=== PATIENT | male | born 1940 | race Caucasian/White ===

== ENCOUNTER 2017-10-13 14:19 | Emergency (ER) | payer MEDICARE, OTHER ==
[2017-10-13 14:50] LABS: #Eosinphils 0.1 thou/uL (0.0-0.7); #Lymphocytes 0.7 thou/uL (1.20-3.40); #Monocytes 0.3 thou/uL (0.11-0.59); #Neutrophils 5.2 thou/uL (1.40-6.50); %Basophils 0.3 % (0.0-1.0); %Eosinophils 1.1 % (0.0-10.0); %Lymphocytes 10.6 % (21.0-51.0); %Monocytes 4.4 % (0.0-10.0); %Neutrophils 83.6 % (42.0-75.0); Mean Corpuscular HGB CONC 34.5 g/dL (32.0-36.0); Mean Corpuscular Hemoglobin 31.4 pg (27.0-31.0); Mean Platelet Volume 7.7 fL (7.4-10.4); Platelet Count 195 thou/uL (130-400); RBC Distribution Width 12.5 % (11.5-14.5); Red Blood Cell (RBC) Count 3.82 mill/uL (4.70-6.10); White Blood Cell (WBC) Count 6.2 thou/uL (4.8-10.8)
[2017-10-13 15:11] LABS: ALT (SGPT) 24 U/L (8-55); AST (SGOT) 30 U/L (5-34); Albumin 4.2 g/dL (3.4-4.8); Alkaline Phosphatase 36 U/L (40-150); Anion Gap 9 mmol/L (10-20); BUN (Urea Nitrogen) 24 mg/dL (8.4-25.7); Bilirubin, Total 0.6 mg/dL (0.2-1.2); Calc. Creatinine Clearance 0 mL/min (70-130); Calcium 9.6 mg/dL (7.8-10.44); Carbon Dioxide 25 mmol/L (23-31); Chloride 105 mmol/L (98-107); Estimated GFR-MDRD 67; Globulin 2.4 g/dL (2.4-3.5); Glucose 120 mg/dL (83-110); Lipase 89 U/L (8-78); Potassium 4.4 mmol/L (3.5-5.1); Protein, Total 6.6 g/dL (5.8-8.1); Sodium 135 mmol/L (136-145)
[2017-10-13 16:10] LABS: Bilirubin Negative (Negative); Blood, Urine Trace (Negative); Clarity CLEAR (Clear); Glucose, Urine (Dipstick) Negative (Negative); Leukocyte Negative (Negative); Nitrite Negative (Negative); Protein, Urine (Dipstick) Negative (Neg-Trace); Specific Gravity, Urine 1.019 (1.002-1.036); Urobilinogen 0.2 mg/dL (0.2-1.0); pH, Urine 5.5 (5.0-9.0)
[2017-10-13 16:12] LABS: Bacteria/HPF None Seen HPF (None Seen); Hyaline Casts/LPF 0-3 HYALINE CAST LPF (0-3 Hyaline); Pathc Cast-AUWi Flag 0.14 (0-2.49); RBC/HPF 0-3 HPF (0-3); Squamous Epithelial 0-3 HPF (0-3); WBC/HPF 0-3 HPF (0-3)
--- NOTE | 2017-10-13 18:52 | CT ---
CT ABDOMEN AND PELVIS WITHOUT CONTRAST WITH STONE PROTOCOL 10/13/17 HISTORY: Pain. Renal stones. Right lower quadrant pain. COMPARISON: CT stone protocol 06/21/11. FINDINGS: Mild atelectasis in the right lung base. No pericardial effusion. Moderate right sided hydroureteronephrosis. There is moderate ectasia of right ureter. There is a dis veronica calculus within the right ureter measuring 4 x 4 mm, 3 cm proximal to the ureterovesicular juncti on as well as a calculus measuring 5 x 6 mm in the distal right ureter at the ureterovesicular juncti on. There appears to be a mass within the urinary bladder near the right ureterovesicular junction no t fully evaluated on this examination due to streak artifact. This may be prostatic hypertrophy altho ugh is asymmetric to the right. Multiple bilateral renal calculi are present. Largest calculus in the right renal collecting system m easures up to 5 mm and on the left collecting system measures up to 9 mm with casting of the inferior calyx. Atherosclerotic plaque of the aortoiliac system. No dilated loops of large or small bowel. Th ere is cholelithiasis. Noncontrast evaluation of the liver and spleen are unremarkable as well as the pancreas. Moderate facet arthropathy lower lumbar spine as well as degenerative disc space height lo ss. IMPRESSION: 1. Moderate right sided hydroureteronephrosis with two separate distal ureteral calculi with siz es as above. 2. Possible mass in the right posterolateral urinary bladder wall versus hypertrophy of the pros cazares. Direct visualization is recommended. 3. Moderate calculus burden of both kidneys with greatest dimensions as above. 4. Small sliding hiatal hernia. 5. Mild cholelithiasis. 6. Numerous hypodensities of both kidneys incompletely evaluated on this exam. POS: STAN
== END 2017-10-13 19:05 | disposition home or self-care (01) ==
LOC: ERS 14:19
DX: N13.2 Hydronephrosis with renal and ureteral calculous obstruction (principal); N40.1 Benign prostatic hyperplasia with lower urinary tract symptoms; E78.5 Hyperlipidemia, unspecified; I10 Essential (primary) hypertension; Z79.82 Long term (current) use of aspirin; Z79.899 Other long term (current) drug therapy
CPT/HCPCS: 36415; 74176; 80053; 81003; 81015; 83690; 85025

== ENCOUNTER 2017-12-18 10:55 | Outpatient (CLI) | payer MEDICARE, OTHER ==
[2017-12-18 12:23] LABS: Hemoglobin 11.5 g/dL (14.0-18.0); Mean Corpuscular HGB CONC 34.2 g/dL (32.0-36.0); Mean Corpuscular Hemoglobin 30.7 pg (27.0-31.0); Mean Corpuscular Volume 89.8 fL (78.0-98.0); Mean Platelet Volume 7.3 fL (7.4-10.4); Platelet Count 250 thou/uL (130-400); Red Blood Cell (RBC) Count 3.75 mill/uL (4.70-6.10); White Blood Cell (WBC) Count 4.5 thou/uL (4.8-10.8)
[2017-12-18 12:29] LABS: Bilirubin Negative (Negative); Blood, Urine Negative (Negative); Clarity CLEAR (Clear); Glucose, Urine (Dipstick) Negative (Negative); Leukocyte Negative (Negative); Nitrite Negative (Negative); Protein, Urine (Dipstick) Negative (Neg-Trace); Specific Gravity, Urine 1.019 (1.002-1.036); Urobilinogen 0.2 mg/dL (0.2-1.0)
[2017-12-18 12:33] LABS: Bacteria/HPF None Seen HPF (None Seen); Hyaline Casts/LPF 0-3 HYALINE CAST LPF (0-3 Hyaline); INR-International Normal Ratio 1.1; Prothrombin Time 13.9 SEC (12.0-14.7); RBC/HPF 0-3 HPF (0-3); Squamous Epithelial None Seen HPF (0-3); WBC/HPF 0-3 HPF (0-3)
[2017-12-18 12:37] LABS: PTT 28.2 SEC (22.9-36.1)
[2017-12-18 12:51] LABS: Anion Gap 13 mmol/L (10-20); BUN (Urea Nitrogen) 26 mg/dL (8.4-25.7); Calc. Creatinine Clearance 0 mL/min (70-130); Calcium 9.1 mg/dL (7.8-10.44); Carbon Dioxide 23 mmol/L (23-31); Chloride 106 mmol/L (98-107); Estimated GFR-MDRD 60; Glucose 115 mg/dL (83-110); Potassium 4.3 mmol/L (3.5-5.1); Sodium 138 mmol/L (136-145)
== END 2017-12-18 10:56 | disposition home or self-care (01) ==
LOC: LABBT 10:55
PROVIDERS: ATTEND Urology
DX: Z01.818 Encounter for other preprocedural examination (principal); N20.0 Calculus of kidney
CPT/HCPCS: 80048; 81001; 85027; 85610; 85730; 87086; 93005; 93010

== ENCOUNTER 2017-12-24 06:05 | Day surgery (SDC) | payer MEDICARE, OTHER ==
[2017-12-18 11:14] VITALS: BMI 23.3
[2017-12-24] MEDS ORDERED: Levofloxacin 500 mg/D5W 100 ml Premix Bag ONE (06:27)
[2017-12-24] MEDS ORDERED: Fentanyl 100 MCG/2 ML VIAL ONE (06:35)
[2017-12-24] MEDS ORDERED: B & O ONE (07:25)
--- NOTE | 2017-12-24 11:34 | OP ---
DATE OF PROCEDURE: 12/24/2017 SERVICE: Urology SURGEON: Brain Bal M.D. PREOPERATIVE DIAGNOSIS: Renal stone. POSTOPERATIVE DIAGNOSIS: Bladder renal and ureteral stone. PROCEDURE PERFORMED: Cystolitholapaxy 1.2 cm, ureteroscopy, laser lithotripsy, basket extraction and placement of a 6 x 26 double-J stent all on the right. INDICATIONS FOR PROCEDURE: Mr. Brennan is a 77-year-old white male who presented to or with flank pain and nephrolithiasis. He was noted to have [address] with renal stones. He states he passed 1 stone, but it was unclear whether or not the other stone was passed. We elected to take him to the OR for ureteroscopy to look for the other stone and go ahead and clear out the right side of his kidney. He does have stones on the left which we have elected to treat at a later date. All the risks and benefits have been discussed and he has agreed to proceed forward. DESCRIPTION OF PROCEDURE: After identification of his armband and verification of consent, the patie ro was brought to the operating room and underwent general anesthesia with an LMA. He was then place d in dorsal lithotomy position and prepped and draped in usual sterile fashion. After appropriate ti meout, a lubricated 22 [place] rigid cystoscope was introduced per urethra into the bladder. The blad agusto was noted to be extremely hypertrophic, full cystoscopy was performed. There were no mucosal les ions or tumors within the bladder. There was a median lobe which was protruding intravesically which likely represented the mass which was seen on CT previously; however, there was approximately a 1-1. 2 cm bladder stone in the bladder. This is most likely a ureteral stone which never passed and has g rown in size within the bladder. A 200 micron laser fiber was used to fragment the stone into smalle r pieces and then a basket along with manual irrigation through the cystoscope was used to evacuate t he pieces. Once the stone from the bladder was cleared, attention was turned to the right ureteral o rifice which was cannulated with a 0.035 sensor wire to the level of the renal pelvis. The cystoscop e was then removed leaving the sensor wire in place as a safety wire. A semi rigid ureteroscope was then brought in along the sensor wire into the distal ureter where another ureteral stone was encount ered in the distal ureter. There were actually 2 stones at this point in close proximity to each oth er. A 200 micron laser fiber was then used to fragment both stones into small pieces and a 1.9 Frenc h 0 tip nitinol basket used to basket the pieces out. Upon completion and after it was ensured that the ureter was clear, an Amplatz Super Stiff wire was then placed through the ureteroscope under dire ct vision up into the renal pelvis. Once confirmed fluoroscopically, the ureteroscope was withdrawn and the sensor wire was left affixed to the drapes as a safety wire. An 11/13 x 46 cm ureteral acces s sheath was advanced over the Super Stiff wire to the level of the renal pelvis. The inner cannula and the Super Stiff wire were then removed leaving the outer sheath and the sensor wire in place as a safety wire. A flexible digital ureteroscope was then passed through the ureteral access sheath int o the kidney and a full pyeloscopy performed. There were several additional stones, some of which re quired laser lithotripsy and some of which could be basketed out individually. Upon completion, all stones were removed and there were no residual fragments whatsoever within the kidney. Satisfied raymundo t the right side is completely clear, pull back ureteroscopy was employed and no additional stones we re found within the ureter. The ureteroscope and sheath were then removed and the cystoscope was the n backloaded over the sensor wire back into the bladder. A 6 x 26 double-J stent was advanced over t he sensor wire up to the level of the renal pelvis. The wire was then removed and had a good curl in the renal pelvis and good curl in the bladder. The bladder was then emptied and the cystoscope ej hemanth. A 16-A B&O suppository placed in the patient's rectum. He was taken out of lithotomy, awakened and taken to PACU for recovery in stable condition. COMPLICATIONS: None. ESTIMATED BLOOD LOSS: Minimal. RETAINED TUBES AND DRAINS: A 6 x 26 double-J stent on the right. SPECIMENS: Stone for stone analysis. DISPOSITION: The patient will be discharged home and follow up with me in approximately 1 week for c ystoscopy and stent removal.
[2017-12-24] MEDS ORDERED: Lidocaine 1% PF 5 ML VIAL ONE (13:29)
[2017-12-24] MEDS ORDERED: PHENYLEPHRINE-NS 100 MCG/ML 10 ML SYRINGE ONE (13:29)
[2017-12-24] MEDS ORDERED: ePHEDrine/0.9% NaCl/PF SYRINGE 50 mg/10 ml ONE (13:29)
[2017-12-24] MEDS ORDERED: PROPOFOL 200 MG/20 ML VIAL ONE (13:29)
== END 2017-12-24 12:00 | disposition home or self-care (01) ==
LOC: SDC 06:05
PROVIDERS: ATTEND Urology
PROC: 0TCB8ZZ Extirpation of Matter from Bladder, Via Natural or Artificial Opening Endoscopic (ICD-10-PCS; principal; 2017-12-24)
PROC: 0T768DZ Dilation of Right Ureter with Intraluminal Device, Via Natural or Artificial Opening Endoscopic (ICD-10-PCS; 2017-12-24)
PROC: 0TC68ZZ Extirpation of Matter from Right Ureter, Via Natural or Artificial Opening Endoscopic (ICD-10-PCS; 2017-12-24)
PROC: 0TC38ZZ Extirpation of Matter from Right Kidney Pelvis, Via Natural or Artificial Opening Endoscopic (ICD-10-PCS; 2017-12-24)
DX: N20.2 Calculus of kidney with calculus of ureter (principal); N21.0 Calculus in bladder; N40.1 Benign prostatic hyperplasia with lower urinary tract symptoms; R35.1 Nocturia; N28.1 Cyst of kidney, acquired; N32.89 Other specified disorders of bladder; I10 Essential (primary) hypertension; E78.5 Hyperlipidemia, unspecified; I25.10 Atherosclerotic heart disease of native coronary artery without angina pectoris; Z95.1 Presence of aortocoronary bypass graft; Z79.82 Long term (current) use of aspirin; Z79.899 Other long term (current) drug therapy; Z87.442 Personal history of urinary calculi; Z98.890 Other specified postprocedural states
CPT/HCPCS: 52317; 52356; 76001; 82365; 88300; C1769; J1956; J3010

== ENCOUNTER 2017-12-25 00:53 | Emergency (ER) | payer MEDICARE, OTHER ==
[2017-12-25] MEDS ORDERED: Ondansetron HCl/PF 4 MG/2 ML Vial ONE (03:53)
[2017-12-25 04:05] LABS: #Lymphocytes 0.4 thou/uL (1.20-3.40); #Monocytes 0.5 thou/uL (0.11-0.59); #Neutrophils 8.2 thou/uL (1.40-6.50); %Eosinophils 0.3 % (0.0-10.0); %Neutrophils 90.7 % (42.0-75.0); Hemoglobin 11.6 g/dL (14.0-18.0); Mean Corpuscular HGB CONC 35.9 g/dL (32.0-36.0); Mean Corpuscular Hemoglobin 32.2 pg (27.0-31.0); Mean Corpuscular Volume 89.7 fL (78.0-98.0); Mean Platelet Volume 7.7 fL (7.4-10.4); Platelet Count 181 thou/uL (130-400); Red Blood Cell (RBC) Count 3.59 mill/uL (4.70-6.10); White Blood Cell (WBC) Count 9.1 thou/uL (4.8-10.8)
[2017-12-25 04:17] LABS: ALT (SGPT) 21 U/L (8-55); AST (SGOT) 30 U/L (5-34); Albumin 4.4 g/dL (3.4-4.8); Alkaline Phosphatase 35 U/L (40-150); Anion Gap 13 mmol/L (10-20); BUN (Urea Nitrogen) 29 mg/dL (8.4-25.7); Calc. Creatinine Clearance 0 mL/min (70-130); Calcium 9.6 mg/dL (7.8-10.44); Carbon Dioxide 23 mmol/L (23-31); Chloride 99 mmol/L (98-107); Estimated GFR-MDRD 46; Globulin 2.6 g/dL (2.4-3.5); Glucose 131 mg/dL (83-110); Sodium 131 mmol/L (136-145)
[2017-12-25 04:51] LABS: Bilirubin Negative (Negative); Blood, Urine Large (Negative); Glucose, Urine (Dipstick) 100 mg/dL (Negative); Leukocyte Moderate (Negative); Nitrite Positive (Negative); Protein, Urine (Dipstick) > or equal to 300 mg/dL (Neg-Trace); Specific Gravity, Urine 1.015 (1.005-1.030); pH, Urine 6.5 (5.0-9.0)
[2017-12-25 04:56] LABS: Clarity Turbid (Clear)
[2017-12-25 05:17] LABS: Bacteria/HPF None Seen HPF (None Seen); RBC/HPF GREATER THAN 50-TNTC HPF (0-3); Squamous Epithelial 0-3 HPF (0-3)
[2017-12-25] MEDS ORDERED: Sodium Chloride 0.9% 100 ML ONE (05:30)
[2017-12-25] MEDS ORDERED: cefTRIAXone\\ROCEPHIN 2 GM VIAL ONE (05:30)
--- NOTE | 2017-12-25 10:00 | ULT ---
ULTRASOUND RETROPERITONEUM COMPLETE: (RENAL) DATE: 12/25/17. TIME: 6:16 a.m. HISTORY: A 77-year-old male with pelvic pain. FINDINGS: Right kidney: 12.5 x 5.5 x 4.5 cm. Left kidney: 12 x 5.5 x 6 cm. The upper portion of a ureteral stent is visualized in a dilated right extrarenal pelvis. There are calculi at the lower pole of the left kidney, with the larger ones measuring greater than 10 mm. No dilation of the bilateral calyces. A small 1 x 1.5 cm left renal upper pole parenchymal cyst. Urinary bladder lumen contains a López catheter (in addition to the right ureteral stent), but the bl adder is not empty. It has a volume of 240 mL. Bladder white are diffusely mildly thickened. There is a soft tissue mass at the base of the urinary bladder which is probably an enlarged prostate glan d. This measures approximately 5.5 x 4.5 x 4.5 cm. This protrudes into the bladder lumen. IMPRESSION: 1. Mass at base of bladder, presumably representing a very enlarged prostate gland. 2. Despite the presence of a López catheter, the bladder is not empty. 3. Nephrolithiasis: left renal calculi. 4. Right ureteral stent. 5. No hydronephrosis. KVNG Tavera POS: STAN
== END 2017-12-25 07:08 | disposition home or self-care (01) ==
LOC: ERS 00:53
DX: N39.0 Urinary tract infection, site not specified (principal); E78.5 Hyperlipidemia, unspecified; I10 Essential (primary) hypertension
CPT/HCPCS: 51702; 76770; 80053; 81003; 81015; 85025; 87086; 96361; 96365; 96375; J0696; J2405; J7050

== ENCOUNTER 2017-12-25 13:00 | Emergency (ER) | payer MEDICARE, OTHER | END 2017-12-25 15:14 | disposition home or self-care (01) | LOC: ERS 13:00 | DX: T83.091A Other mechanical complication of indwelling urethral catheter, initial encounter (principal); R33.9 Retention of urine, unspecified; E78.5 Hyperlipidemia, unspecified; I10 Essential (primary) hypertension; Z79.82 Long term (current) use of aspirin; Z79.899 Other long term (current) drug therapy | CPT/HCPCS: 99283 ==

== ENCOUNTER 2018-02-10 10:34 | Outpatient (CLI) | payer MEDICARE, OTHER | END 2018-02-10 10:35 | disposition home or self-care (01) | LOC: BICULT 10:34 | PROVIDERS: ATTEND Urology | DX: N20.0 Calculus of kidney (principal); N28.1 Cyst of kidney, acquired; N28.89 Other specified disorders of kidney and ureter | CPT/HCPCS: 76770 ==

== ENCOUNTER 2018-08-24 14:52 | Outpatient (CLI) | payer MEDICARE, OTHER ==
[~2018-08-24 14:52] MED LIST: ISOVUE-370 76%-LOCM 1 ML ONE
[2018-08-24 15:33] LABS: Estimated GFR-MDRD - POC Greater than 90
--- NOTE | 2018-08-24 16:16 | CT ---
CT ABDOMEN WITH AND WITHOUT IV CONTRAST: Date: 08/24/18 HISTORY: Acquired complex renal cyst. COMPARISON: CT stone protocol dated 10/13/[address] abdomen and pelvis with and without IV contrast dated 5. FINDINGS: There are mild dependent changes in the right lung base. A small hiatal hernia is again seen. The mich er, spleen, pancreas, and adrenal glands are normal. Calcified gallstones are redemonstrated. No calculi seen in the right kidney or visualized portions of either ureter. There are calculi in the left kidney, the largest measuring about 1.0 cm. No hydroureteronephrosis is seen on either side. Th ere are hypodense lesions in the kidneys and hyperdense lesions in the left kidney are stable. No new renal masses are identified. No free air, free fluid, or lymphadenopathy seen in the abdomen. There are vascular calcifications wi thout evidence of aneurysmal dilatation of the abdominal aorta. There are degenerative changes in the spine. IMPRESSION: 1. Nonobstructing left renal calculi. 2. Stable renal lesions (hypo and hyperdense) since 2014. 3. Cholelithiasis. 4. Small hiatal hernia. POS: OFF
== END 2018-08-24 14:53 | disposition home or self-care (01) ==
LOC: BICCT 14:52
PROVIDERS: ATTEND Urology
DX: N28.1 Cyst of kidney, acquired (principal); N20.0 Calculus of kidney; K80.20 Calculus of gallbladder without cholecystitis without obstruction; K44.9 Diaphragmatic hernia without obstruction or gangrene; N28.9 Disorder of kidney and ureter, unspecified
CPT/HCPCS: 74170; 82565; Q9966

== ENCOUNTER 2018-12-28 09:15 | Outpatient (CLI) | payer MEDICARE, OTHER ==
[2018-12-28 11:18] LABS: Hemoglobin 13.1 g/dL (14.0-18.0); Mean Corpuscular HGB CONC 34.4 g/dL (32.0-36.0); Mean Corpuscular Hemoglobin 30.7 pg (27.0-31.0); Mean Corpuscular Volume 89.2 fL (78.0-98.0); Mean Platelet Volume 8.4 fL (7.4-10.4); Platelet Count 150 thou/uL (130-400); RBC Distribution Width 12.6 % (11.5-14.5); Red Blood Cell (RBC) Count 4.29 mill/uL (4.70-6.10); White Blood Cell (WBC) Count 5.5 thou/uL (4.8-10.8)
[2018-12-28 11:26] LABS: Bacteria/HPF None Seen HPF (None Seen); Bilirubin Negative (Negative); Blood, Urine Negative (Negative); Clarity Clear (Clear); Glucose, Urine (Dipstick) Normal (Negative); Leukocyte Negative Leu/uL (Negative); Nitrite Negative (Negative); Protein, Urine (Dipstick) Negative (Neg-Trace); RBC/HPF 0-3 HPF (0-3); Squamous Epithelial None Seen HPF (0-3); Urobilinogen Normal mg/dL (Less than 2); WBC/HPF 0-3 HPF (0-3)
[2018-12-28 11:29] LABS: PTT 28.8 SEC (22.9-36.1); Prothrombin Time 13.5 SEC (12.0-14.7)
[2018-12-28 11:50] LABS: Anion Gap 14 mmol/L (10-20); BUN (Urea Nitrogen) 22 mg/dL (8.4-25.7); Calc. Creatinine Clearance 0 mL/min (70-130); Calcium 9.8 mg/dL (7.8-10.44); Carbon Dioxide 24 mmol/L (23-31); Chloride 103 mmol/L (98-107); Estimated GFR-MDRD 88; Glucose 101 mg/dL (83-110); Potassium 4.7 mmol/L (3.5-5.1); Sodium 136 mmol/L (136-145)
--- NOTE | 2018-12-29 13:20 | EKG ---
Test Reason : Blood Pressure : / mmHG Vent. Rate : 061 BPM Atrial Rate : 061 BPM P-R Int : 162 ms QRS Dur : 082 ms QT Int : 388 ms P-R-T Axes : 026 057 061 degrees QTc Int : 390 ms Sinus rhythm with Premature atrial complexes Low voltage QRS RSR' or QR pattern in V1 suggests right ventricular conduction delay Borderline ECG When compared with ECG of 18-DEC-2017 12:01, Premature atrial complexes are now Present Confirmed by KAILEE BRADEN (2) on 12/29/2018 1:19:59 PM Referred By: LUKASZ Confirmed By:KAILEE BRADEN
== END 2018-12-28 09:16 | disposition home or self-care (01) ==
LOC: LABBT 09:15
PROVIDERS: ATTEND Urology
DX: Z01.818 Encounter for other preprocedural examination (principal); N20.0 Calculus of kidney; N40.1 Benign prostatic hyperplasia with lower urinary tract symptoms
CPT/HCPCS: 80048; 81001; 85027; 85610; 85730; 87086; 93005; 93010

== ENCOUNTER 2019-01-06 06:23 | Day surgery (SDC) | payer MEDICARE, OTHER ==
[2018-12-28 09:51] VITALS: BMI 24.0
[2019-01-06] MEDS ORDERED: Sodium Chloride 0.9% 100 ML ONE (07:40)
[2019-01-06] MEDS ORDERED: Levofloxacin 500 mg/D5W 100 ml Premix Bag ONE (07:40)
[2019-01-06] MEDS ORDERED: CEFAZOLIN 1 GM VIAL ONE (07:40)
[2019-01-06] MEDS ORDERED: Iothalamate Meglumine 60% 50 ML VIAL FS ONE (09:04)
[2019-01-06] MEDS ORDERED: Fentanyl 100 MCG/2 ML VIAL ONE (09:10)
[2019-01-06] MEDS ORDERED: Phenazopyridine HCl 97.5 MG TABLET ONE (12:19)
--- NOTE | 2019-01-06 14:33 | OP ---
DATE OF PROCEDURE: 01/06/2019 SERVICE: Urology. PREOPERATIVE DIAGNOSIS: Left renal stone. POSTOPERATIVE DIAGNOSIS: Left renal stone. PROCEDURE PERFORMED: Left ureteroscopy, laser lithotripsy, basket extraction of stones, and placement of a 6 x 26 double-J stent. INDICATION FOR PROCEDURE: Mr. Brennan is an 79-year-old white male, who had initially presented to [facility] with bilateral nephrolithiasis. We had already performed ureteroscopy on the right and cleared out all stones. He is now presenting to complete the left side with ureteroscopy. Risks and benefits have been discussed, and he has agreed to proceed forward. DESCRIPTION OF PROCEDURE: After identification of armband and verification of consent, the patient was brought back to the operating room, where he underwent general anesthesia with endotracheal intubation. He was then placed in dorsal lithotomy position and prepped and draped in usual sterile fashion. After appropriate time-out, a lubricated 22-[place]izen [place] rigid cystoscope was introduced per urethra into the bladder. The prostate was hypertrophic with a large lateral lobe. The left ureteral orifice was identified and cannulated with a 0.035 Sensor wire up to the level of the renal pelvis. The cystoscope was then removed and a dual-lumen catheter advanced over the Sensor wire up to the level of the UPJ. The second lumen was then cannulated with the Amplatz Super Stiff wire up to the level of the renal pelvis. The dual-lumen was then removed, and the Sensor wire secured on the drapes as a safety wire. An 11/13 x 46 cm ureteral access sheath was advanced up the Super Stiff wire up to the level of the proximal ureter. The inner cannula and the Super Stiff wire were then removed leaving the outer sheath and Sensor wire in place. A flexible digital disposable ureteroscope was then advanced up the ureteral access sheath up to the level of renal pelvis. A full pyeloscopy was performed, which demonstrated several smaller stones and one large lower pole stone measuring about a centimeter, which had previously been noted. The lower pole stone was manipulated with a Zero Tip 1.9-[place]izen [place] basket to bring it up to the upper pole for easier fragmentation. The 279 micron ball-tip laser fiber was then used to fragment the stone into small pieces, and then, the 1.9-[place] Zero Tip Nitinol basket used to fragment all the larger pieces and some of the additional stones that were seen within the kidney. Upon completion, all stones over 1 mm had been removed. The only remaining fragments were either a millimeter or less in size. There was a lot of dust and debris. Full pyeloscopy was performed without the basket for proper irrigation and there were no additional stone fragments noted. Pull-back ureteroscopy was employed, no additional stones were seen within the ureter. The ureteroscope and sheath were then removed, and the cystoscope was backloaded back into the bladder over the Sensor wire. A 6 x 26 double-J stent with string attached was advanced over the Sensor wire up to the level of renal pelvis. The wire was then removed leaving a good curl in the kidney, a good curl in the bladder. The bladder was then emptied and the cystoscope removed. The patient was then awakened, taken to PACU for recovery in stable condition. COMPLICATIONS: None. ESTIMATED BLOOD LOSS: Minimal. RETAINED TUBES AND DRAINS: A 6 x 26 double-J stent on the left with a string attached, which is secured by an OpSite on the patient's penis. SPECIMEN: Stone for stone analysis. DISPOSITION: The patient will be discharged discharge home and follow up with me next week for stent removal. The patient may also be allowed to remove his stent on either Thursday or Thursday morning. Job ID: [id number]
[2019-01-06] MEDS ORDERED: Furosemide 20 MG/2 ML VIAL ONE (20:54)
[2019-01-06] MEDS ORDERED: HYDROcodone/Acetaminophen 5/325 mg Tablet ONE (21:03)
== END 2019-01-06 21:40 | disposition home or self-care (01) ==
LOC: SDC 06:23
PROVIDERS: ATTEND Urology
PROC: 0TF48ZZ Fragmentation in Left Kidney Pelvis, Via Natural or Artificial Opening Endoscopic (ICD-10-PCS; principal; 2019-01-06)
PROC: 0T778DZ Dilation of Left Ureter with Intraluminal Device, Via Natural or Artificial Opening Endoscopic (ICD-10-PCS; 2019-01-06)
DX: N20.0 Calculus of kidney (principal); I10 Essential (primary) hypertension; E78.5 Hyperlipidemia, unspecified; I25.10 Atherosclerotic heart disease of native coronary artery without angina pectoris; M19.90 Unspecified osteoarthritis, unspecified site; Z79.82 Long term (current) use of aspirin; Z79.899 Other long term (current) drug therapy; Z95.1 Presence of aortocoronary bypass graft; Z96.653 Presence of artificial knee joint, bilateral
CPT/HCPCS: 52356; 76000; 82365; 88300; C1758; C1769; J0690; J1940; J1956; J3010; J3490

== ENCOUNTER 2019-01-11 04:12 | Emergency (ER) | payer MEDICARE, OTHER ==
[2019-01-11 04:45] LABS: #Eosinphils 0.2 thou/uL (0.0-0.7); #Lymphocytes 0.8 thou/uL (1.20-3.40); #Monocytes 0.4 thou/uL (0.11-0.59); #Neutrophils 4.2 thou/uL (1.40-6.50); %Basophils 0.1 % (0.0-1.0); %Eosinophils 3.7 % (0.0-10.0); %Monocytes 6.6 % (0.0-10.0); %Neutrophils 75.6 % (42.0-75.0); Mean Corpuscular Hemoglobin 31.3 pg (27.0-31.0); Mean Corpuscular Volume 89.4 fL (78.0-98.0); Mean Platelet Volume 8.1 fL (7.4-10.4); Platelet Count 144 thou/uL (130-400); RBC Distribution Width 12.6 % (11.5-14.5); Red Blood Cell (RBC) Count 3.84 mill/uL (4.70-6.10); White Blood Cell (WBC) Count 5.6 thou/uL (4.8-10.8)
[2019-01-11 05:04] LABS: Anion Gap 13 mmol/L (10-20); BUN (Urea Nitrogen) 24 mg/dL (8.4-25.7); Calc. Creatinine Clearance 0 mL/min (70-130); Calcium 9.6 mg/dL (7.8-10.44); Carbon Dioxide 22 mmol/L (23-31); Chloride 104 mmol/L (98-107); Estimated GFR-MDRD Greater than 90; Glucose 116 mg/dL (83-110); Potassium 4.1 mmol/L (3.5-5.1); Sodium 135 mmol/L (136-145)
[2019-01-11 05:09] LABS: Bilirubin Negative (Negative); Blood, Urine 3+ (Negative); Clarity Clear (Clear); Glucose, Urine (Dipstick) Normal (Negative); Leukocyte 250 Leu/uL (Negative); Nitrite Negative (Negative); Protein, Urine (Dipstick) 20 mg/dL (Neg-Trace); Squamous Epithelial None Seen HPF (0-3); Urobilinogen Normal mg/dL (Less than 2)
[2019-01-11 05:18] LABS: Bacteria/HPF 1+ HPF (None Seen)
== END 2019-01-11 05:32 | disposition home or self-care (01) ==
LOC: ERS 04:12
DX: R33.9 Retention of urine, unspecified (principal); E78.5 Hyperlipidemia, unspecified; E78.00 Pure hypercholesterolemia, unspecified; I10 Essential (primary) hypertension; Z79.899 Other long term (current) drug therapy
CPT/HCPCS: 36415; 51702; 51798; 80048; 81003; 81015; 85025; 87086

== ENCOUNTER 2019-02-23 10:42 | Outpatient (CLI) | payer MEDICARE, OTHER ==
--- NOTE | 2019-02-23 13:19 | ULT ---
BILATERAL RENAL ULTRASOUND: Date: 02/23/19 COMPARISON: None. HISTORY: Right ureteral stent removed. Prior lithotripsy of kidney stone. Nephrolithiasis. TECHNIQUE: Multiplanar Mendes scale and color Doppler images were obtained in a renal ultrasound. COMPARISON: CT abdomen/pelvis dated 08/24/18. FINDINGS: The kidneys demonstrate normal cortical echogenicity. There is an echogenic regio in the left kidney measuring 8 mm in size, which may represent a nonobstructing kidney stone. There is an area of cortic al hyperechogenicity measuring 1.6 cm in size in the left kidney which is nonspecific and has no CT c orrelate. Anechoic cysts are seen in the left kidney measuring up to 1.3 cm in size. There is no evidence of hydronephrosis on either side. The kidneys measures 10.6 and 12.6 cm in lengt h on the right and left, respectively. Limited visualization of the urinary bladder is unremarkable. IMPRESSION: 1. No evidence of hydronephrosis. 2. Left renal cysts. 3. Possible nonobstructing 8 mm left renal calcification. 4. Nonspecific hyperechoic region in the cortex of the left kidney. This does not demonstrate a CT c orrelate. POS: TPC
== END 2019-02-23 10:43 | disposition home or self-care (01) ==
LOC: BICULT 10:42
PROVIDERS: ATTEND Urology
DX: N20.0 Calculus of kidney (principal); N28.1 Cyst of kidney, acquired
CPT/HCPCS: 76770

== ENCOUNTER 2020-03-10 20:18 | Inpatient (IN) | payer MEDICARE, OTHER ==
[2020-03-10 20:52] LABS: #Basophils 0.1 thou/uL (0.0-0.2); #Eosinphils 0.2 thou/uL (0.0-0.7); #Monocytes 0.5 thou/uL (0.11-0.59); #Neutrophils 3.8 thou/uL (1.40-6.50); %Basophils 0.9 % (0.0-1.0); %Eosinophils 3.3 % (0.0-10.0); %Lymphocytes 17.7 % (21.0-51.0); %Monocytes 8.5 % (0.0-10.0); %Neutrophils 69.6 % (42.0-75.0); Hemoglobin 13.1 g/dL (14.0-18.0); Mean Corpuscular HGB CONC 35.2 g/dL (32.0-36.0); Mean Corpuscular Volume 90.9 fL (78.0-98.0); Mean Platelet Volume 8.4 fL (7.4-10.4); Platelet Count 142 thou/uL (130-400); RBC Distribution Width 12.7 % (11.5-14.5); Red Blood Cell (RBC) Count 4.08 mill/uL (4.70-6.10); White Blood Cell (WBC) Count 5.5 thou/uL (4.8-10.8)
--- NOTE | 2020-03-10 20:55 | RAD ---
XR Chest 1 View Portable History: Chest pain Comparison: Radiograph 2007 Findings: Mild rightward patient rotation. Lungs are without confluent airspace consolidation, pneumo thorax or effusion. Advanced degenerative disease of the left glenohumeral joint. Prominent gastric gas bubble under the left hemidiaphragm. Impression: No acute intrathoracic abnormality.
[2020-03-10 20:59] LABS: INR-International Normal Ratio 1.1; Prothrombin Time 14.3 sec (12.0-14.7)
[2020-03-10 21:21] LABS: ALT (SGPT) 26 U/L (8-55); AST (SGOT) 22 U/L (5-34); Albumin 4.2 g/dL (3.4-4.8); Alkaline Phosphatase 60 U/L (40-110); Anion Gap 15 mmol/L (10-20); BUN (Urea Nitrogen) 42 mg/dL (8.4-25.7); Bilirubin, Total 0.5 mg/dL (0.2-1.2); CK (CPK) 144 U/L (30-200); Calc. Creatinine Clearance 0 mL/min (70-130); Calcium 9.2 mg/dL (7.8-10.44); Carbon Dioxide 24 mmol/L (23-31); Chloride 106 mmol/L (98-107); Estimated GFR-MDRD 54; Globulin 2.1 g/dL (2.4-3.5); Glucose 116 mg/dL (83-110); Potassium 4.5 mmol/L (3.5-5.1); Protein, Total 6.3 g/dL (5.8-8.1); Sodium 140 mmol/L (136-145)
[2020-03-10 21:34] LABS: CKMB 3.3 ng/mL (0-6.6)
[2020-03-10] MEDS ORDERED: Aspirin Chewable 81 MG TAB ONE (22:24)
[2020-03-10] MEDS ORDERED: Diltiazem 125 MG/25 ML ONE (22:24)
[2020-03-10] MEDS ORDERED: Diltiazem 125 MG in Sodium Chloride 0.9% 100 ML IVPB SCH (23:45)
[2020-03-10] MEDS ORDERED: Acetaminophen 325 MG TAB PO PRN (23:51)
[2020-03-10] MEDS ORDERED: HYDROcodone/Acetaminophen 7.5/325 mg Tablet PO PRN (23:51)
--- NOTE | 2020-03-10 23:59 | PDOC.HHP ---
Hospitalist HPI - History of Present Illness syncope History of Present Illness: Case of an 80y/o male with pmhx of htn, hypercholesterolemia, cad and bph who present to hospital after a syncope episode. patient refers he was on his usual state of health until today when while at a chair he had an episode of LOC. patient states he didnt have any prodromal symptoms and was not trying to get up when the episode happen. he states he was fine and then woke up on the floor, as per daughter just after a few seconds. after waking up patient was pale diaphoretic and with palpitations but denies any chest pain or sob, and was oriented as soon as he woke up. he states this has not happened before and not no focal sensory or motor deficits Hospitalist ROS - Review of Systems All other systems reviewed; all pertinent +/- noted in HPI/Subj Hospitalist History - Past Surgical History Past Surgical History: reports: CABG - Family History Family History: reports: cardiac disorder - Social History Smoking Status: Never smoker Alcohol: reports: None Drugs: reports: none - Exam General Appearance: NAD, awake alert Eye: PERRL, anicteric sclera ENT: normocephalic atraumatic, no oropharyngeal lesions Neck: supple, symmetric, no JVD Heart: irregular Heart - other findings: tachycardic Respiratory: CTAB, no wheezes, no rales Gastrointestinal: soft, non-tender, non-distended Extremities: no cyanosis, no clubbing, no edema Skin: normal turgor, no lesions, no rashes Neurological: cranial nerve grossly intact, normal sensation to touch Musculoskeletal: normal tone, normal strength, no muscle wasting Psychiatric: normal affect, normal behavior, A&O x 3 Hospitalist Results - Labs Result Diagrams: 03/10/20 20:45 03/10/20 20:45 Lab results: WBC 5.5 thou/uL (4.8-10.8) 03/10/20 20:45 Hgb 13.1 g/dL (14.0-18.0) L 03/10/20 20:45 Hct 37.1 % (42.0-52.0) L 03/10/20 20:45 MCV 90.9 fL (78.0-98.0) 03/10/20 20:45 Plt Count 142 thou/uL (130-400) 03/10/20 20:45 Neutrophils % 69.6 % (42.0-75.0) 03/10/20 20:45 Sodium 140 mmol/L (136-145) 03/10/20 20:45 Potassium 4.5 mmol/L (3.5-5.1) 03/10/20 20:45 Chloride 106 mmol/L (98-107) 03/10/20 20:45 Carbon Dioxide 24 mmol/L (23-31) 03/10/20 20:45 BUN 42 mg/dL (8.4-25.7) H 03/10/20 20:45 Creatinine 1.28 mg/dL (0.7-1.3) 03/10/20 20:45 Glucose 116 mg/dL (83-110) H 03/10/20 20:45 Calcium 9.2 mg/dL (7.8-10.44) 03/10/20 20:45 Total Bilirubin 0.5 mg/dL (0.2-1.2) 03/10/20 20:45 AST 22 U/L (5-34) 03/10/20 20:45 ALT 26 U/L (8-55) 03/10/20 20:45 Alkaline Phosphatase 60 U/L (40-110) 03/10/20 20:45 Creatine Kinase 144 U/L (30-200) 03/10/20 20:45 CK-MB (CK-2) 3.3 ng/mL (0-6.6) 03/10/20 20:44 Troponin I 0.057 ng/mL (< 0.028) H 03/10/20 20:44 Serum Total Protein 6.3 g/dL (5.8-8.1) 03/10/20 20:45 Albumin 4.2 g/dL (3.4-4.8) 03/10/20 20:45 - Radiology Interpretation Chest x-ray Additional Comment: XR Chest 1 View Portable History: Chest pain Comparison: Radiograph 2006 Findings: Mild rightward patient rotation. Lungs are without confluent airspace consolidation, pneumo thorax or effusion. Advanced degenerative disease of the left glenohumeral joint. Prominent gastric gas bubble under the left hemidiaphragm. Impression: No acute intrathoracic abnormality. Hospitalist H&P A/P - Problem (1) Atrial fibrillation with RVR Code(s): I48.91 - UNSPECIFIED ATRIAL FIBRILLATION Status: Acute (2) CAD (coronary artery disease) Code(s): I25.10 - ATHSCL HEART DISEASE OF [place] CORONARY ARTERY W/O ANG PCTRS Status: Chronic (3) Dyslipidemia Code(s): E78.5 - HYPERLIPIDEMIA, UNSPECIFIED Status: Chronic (4) Hypertension Code(s): I10 - ESSENTIAL (PRIMARY) HYPERTENSION Status: Chronic - Plan Plan: 80y/o male with the stated pmxh who presents with new onset of afib in rvr atrial fibrillation in rvr - diltiazem drip - mild elevation in troponin, likely deman ischemia - cardiology consulted - full AC with lovenox -2d echo - check tsh, mg htn - continue acei hypercholestorelmia - continue statin + vascepa bph - continue flomax cad - continue acei, asa and statin
[2020-03-11 01:07] LABS: Troponin I 0.044 ng/mL (< 0.028)
[2020-03-11 01:12] VITALS: BMI 23.7
[2020-03-11] MEDS ORDERED: Sodium Chloride 0.9% 500 ML IV SCH (02:15)
[2020-03-11 04:11] LABS: #Eosinphils 0.1 thou/uL (0.0-0.7); #Lymphocytes 0.9 thou/uL (1.20-3.40); #Monocytes 0.4 thou/uL (0.11-0.59); #Neutrophils 4.4 thou/uL (1.40-6.50); %Basophils 0.2 % (0.0-1.0); %Lymphocytes 15.7 % (21.0-51.0); %Neutrophils 75.1 % (42.0-75.0); Hemoglobin 11.3 g/dL (14.0-18.0); Mean Corpuscular HGB CONC 34.6 g/dL (32.0-36.0); Mean Corpuscular Hemoglobin 31.4 pg (27.0-31.0); Mean Corpuscular Volume 90.6 fL (78.0-98.0); Mean Platelet Volume 8.7 fL (7.4-10.4); Platelet Count 137 thou/uL (130-400); RBC Distribution Width 12.7 % (11.5-14.5); Red Blood Cell (RBC) Count 3.59 mill/uL (4.70-6.10); White Blood Cell (WBC) Count 5.8 thou/uL (4.8-10.8)
[2020-03-11 04:29] LABS: ALT (SGPT) 21 U/L (8-55); AST (SGOT) 16 U/L (5-34); Albumin 3.4 g/dL (3.4-4.8); Alkaline Phosphatase 51 U/L (40-110); Anion Gap 13 mmol/L (10-20); BUN (Urea Nitrogen) 41 mg/dL (8.4-25.7); Bilirubin, Total 0.4 mg/dL (0.2-1.2); Calc. Creatinine Clearance 50 mL/min (70-130); Calcium 8.6 mg/dL (7.8-10.44); Carbon Dioxide 21 mmol/L (23-31); Chloride 109 mmol/L (98-107); Estimated GFR-MDRD 68; Globulin 2.1 g/dL (2.4-3.5); Glucose 163 mg/dL (83-110); Magnesium 2.1 mg/dL (1.6-2.6); Potassium 4.2 mmol/L (3.5-5.1); Protein, Total 5.5 g/dL (5.8-8.1); Sodium 139 mmol/L (136-145)
[2020-03-11 04:33] LABS: Troponin I 0.067 ng/mL (< 0.028)
[2020-03-11] MEDS ORDERED: Metoprolol Tartrate 5 MG/5 ML VIAL ONE (08:50)
[2020-03-11] MEDS ORDERED: Lisinopril 10 MG TAB PO SCH (09:00)
[2020-03-11] MEDS: Aspirin Chewable 81 MG TAB PO SCH (09:02)
[2020-03-11] MEDS: Enoxaparin Sodium 60 MG/0.6 ML SYRINGE SC SCH ×2 (09:03→21:33)
[2020-03-11] MEDS: Tamsulosin HCl 0.4 MG CAP PO SCH (09:03)
[2020-03-11] MEDS ORDERED: Fluticasone Propionate Nasal Spray 16 gm Bottle NASAL SCH (10:15)
[2020-03-11] MEDS ORDERED: Loratadine 10 MG TAB PO SCH (10:15)
[2020-03-11] MEDS: Icosapent Ethyl 1 GM CAPSULE PO SCH ×2 (11:17→21:32)
--- NOTE | 2020-03-11 14:23 | PDOC.HOSPP ---
- Subjective Subjective: Patient was seen examined at bedside. He has been converted into normal sinus rhythm this morning. His troponin is elevated slightly. However he does not have any chest pain. Patient's followed by Dr. Sims, he reported that he had no recent stress test - Objective Vital Signs & Weight: Vital Signs (12 hours) Temp Pulse Resp BP BP Pulse Ox 03/11/20 11:09 97.6 F 70 16 136/64 98 03/11/20 07:09 97.3 F L 80 18 120/59 L 97 03/11/20 06:39 64 18 95/54 L Weight Weight 142 lb 8 oz I&O: 03/10/20 03/11/20 03/12/20 06:59 06:59 06:59 Intake Total 50 Output Total 250 Balance -200 Result Diagrams: 03/11/20 03:39 03/11/20 03:39 Hospitalist ROS - Medication Medications: Active Medications Generic Name Dose Route Start Last Admin Trade Name Freq PRN Reason Stop Dose Admin Aspirin 162 mg 03/11/20 09:00 03/11/20 09:02 Aspirin Chewable 81 Mg Tab PO 162 mg QAM GURPREET Administration Enoxaparin Sodium 60 mg 03/11/20 09:00 03/11/20 09:03 Enoxaparin Sodium 60 Mg/0.6 Ml Syringe SC 60 mg 09,2100 GURPREET Administration Lisinopril 10 mg 03/11/20 09:00 03/11/20 09:03 Lisinopril 10 Mg Tab PO 10 mg DAILY GURPREET Administration Miscellaneous Medication 2 gm 03/11/20 09:00 03/11/20 11:17 Icosapent Ethyl 1 Gm Capsule PO 2 gm BID GURPREET Administration Tamsulosin HCl 0.4 mg 03/11/20 09:00 03/11/20 09:03 Tamsulosin Hcl 0.4 Mg Cap PO 0.4 mg QAM GURPREET Administration - Exam General Appearance: NAD Eye: PERRL ENT: normocephalic atraumatic Neck: supple Heart: RRR Respiratory: CTAB Gastrointestinal: soft Extremities: no cyanosis Skin: normal turgor Neurological: cranial nerve grossly intact Musculoskeletal: normal tone Psychiatric: normal affect, normal behavior, A&O x 3 Hosp A/P - Plan The patient is a pleasant 80 years old gentleman who has significant past medical histories of CAD with bypass, hypertension, dyslipidemia, who presented to the ED with syncopal episode. He was found to have new onset of atrial fib with RVR. Patient was started on Cardizem drip, now converted back to normal sinus rhythm. New onset of atrial fib with RVR - patient spontaneously converted on Cardizem drip --start Coreg for rate control --Cont therapeutic Lovenox for now, likely home on Eliquis given elevated [id number] score --Follow Echo. TSH low, check FT4+3 --Trop slightly elevated, no chest pain Elevated troponin --d/t above. No CP. No recent stress test --will consult his [employer] in AM for further recommendation CAD --with hx of bypass --resume home meds. Add Coreg for rate control Hypertension --BP stable. Add Coreg for above prob Dyslipidemia --cont statin Nasal congestion --start Flonase/Antihistamine BPH --cont Flomax DVT ppx: Patient is on Lovenox GI ppx: not indicated Code Status: Full Anticipated Dispo: Home when medically stable
[2020-03-11 16:15] LABS: SARS-CoV-2 MS2 Positive; SARS-CoV-2 N Gene Negative; SARS-CoV-2 S Gene Negative; SARS-CoV-2 by NAA Not Detected (NotDetected); SARS-CoV-2 orf1ab Negative
[2020-03-11] MEDS: Carvedilol 3.125 MG TAB PO SCH (16:26)
[2020-03-11] MEDS ORDERED: Nitroglycerin 0.4 MG TAB (25 Tab Bottle) ONE (20:45)
[2020-03-11] MEDS: Atorvastatin Calcium 40 MG TAB PO SCH (21:31)
--- NOTE | 2020-03-12 00:54 | CON ---
DATE OF CONSULTATION: 03/11/2020 INDICATION FOR CONSULTATION: An 80-year-old gentleman with syncopal episode. HISTORY OF PRESENT ILLNESS: This is a very pleasant 80-year-old gentleman, who has a history of coronary artery disease, who underwent bypass surgery approximately 15 years ago. He has been followed by Dr. Sims. He has not had any significant problems with arrhythmias in the past. He was sitting outside talking to family yesterday when he had a sudden onset of syncope. He was out for a few seconds according to the family, then he came back. He was brought to the emergency room and had what appeared to be atrial fibrillation with rapid ventricular response. He thought he was originally somewhat dehydrated and he did have a slight increase in the BUN-creatinine ratio, but otherwise did not have any significant abnormalities. He denied any chest pain or significant shortness of breath. He was started on IV diltiazem and converted to sinus rhythm and has been in sinus rhythm since that time. He has been relatively active. He has not had any significant other problems. He did have 1 episode of syncope many years ago, but it was most likely due to being dehydrated and overheated, but this was several years ago, and he has not had any problems since that time. PAST MEDICAL HISTORY: Significant for coronary artery bypass grafting with coronary artery disease. He has had bilateral knee replacements. SOCIAL HISTORY: He still lives at home. He has no alcohol or tobacco abuse. FAMILY HISTORY: Noncontributory. REVIEW OF SYSTEMS: A 12-point review of systems for this 80-year-old gentleman is relatively unremarkable except what was noted in the history of present illness. PHYSICAL EXAMINATION: GENERAL: A well-developed, well-nourished gentleman, who is in no acute distress. He is alert. He is oriented. VITAL SIGNS: Actually stable at this time. Blood pressure is 136/64. He is afebrile. Heart rate is 70 and shows a regular rhythm. Respiratory rate 16, O2 saturation 98%. HEENT: Shows head to be normocephalic and atraumatic. Carotid pulses are present. I did not hear any significant bruits. There is a slight radiation from the aortic area, but does not appear to be a carotid bruit. CHEST: Clear to auscultation without rales, rhonchi, or wheezing. CARDIOVASCULAR: Reveals a regular rate and rhythm. There is a systolic murmur over the aortic area, which is actually heard over the entire precordium. A very soft systolic murmur at the apex. ABDOMEN: Soft and nontender. Positive bowel sounds are present. There is no organomegaly or masses noted. Femoral pulses are present. EXTREMITIES: No clubbing, cyanosis. He had mild ankle edema. He has well-healed surgical incisions noted over the lower extremity after saphenous vein graft retrieval and also the left radial artery was taken for a bypass surgery in the past and the incisions are all well healed. The pedal pulses are somewhat difficult to palpate, but popliteal pulses are present. The one on the right is greater than one on the left. He has had bilateral knee replacements and these incisions are also well healed. NEUROLOGIC: There are no gross focal motor deficits noted. LABORATORY DATA: Shows a WBC of 5.8, hemoglobin was 11.3, hematocrit was 32.5, and platelet count was 137,000. His sodium was 139, potassium 4.2, chloride 109, bicarb was 21, BUN was 41 with a creatinine of 1.04. His troponin I was slightly elevated at 0.04 and then 0.067. BNP was 237. He is negative for COVID. IMPRESSION: 1. Chuck syncopal episode in gentleman who has had no significant previous history. He did have an episode of atrial fibrillation. He may have had atrial fibrillation and a pause which caused him to have the syncopal episode. I would either advise him to undergo monitoring for a 30-day event monitor, or in his case he certainly could be implanted with a LINQ, an implantable loop recorder to watch for further episodes of bradycardia or syncope or any arrhythmias. In the meantime, it would be advisable to place him on oral anticoagulation in case he has further episodes of atrial fibrillation. 2. History of coronary artery disease. He has had no ST-segment elevation that would indicate ischemia. He has not had a recent stress test. This may be in order to ensure he does not have any evidence of any ischemia that may have provoked some type of arrhythmias such as ventricular tachycardia that was undiagnosed. 3. Mild aortic valve stenosis. This would not appear to be enough to cause a chuck syncopal episode. He also has well-preserved left ventricular systolic function. At this time, I would agree with the present management with [facility] [place] well as the Lovenox. 4. He also has a history of hypertension which is under good control with the present management. We will continue his lisinopril. 5. He has benign prostatic hypertrophy. We will continue on the Flomax. Further care of the patient will be by Dr. Sims when he visits with the patient tomorrow, but we will hold his Lovenox after midnight tonight. We will hold the morning dose in case he needs to undergo other procedures. We will also keep the patient n.p.o. for possible stress test tomorrow. We will schedule him for stress testing tomorrow morning. Job ID: [id number]
[2020-03-12 04:58] LABS: Anion Gap 12 mmol/L (10-20); BUN (Urea Nitrogen) 28 mg/dL (8.4-25.7); Calc. Creatinine Clearance 63 mL/min (70-130); Calcium 8.6 mg/dL (7.8-10.44); Carbon Dioxide 23 mmol/L (23-31); Chloride 110 mmol/L (98-107); Estimated GFR-MDRD 89; Glucose 104 mg/dL (83-110); Magnesium 1.8 mg/dL (1.6-2.6); Potassium 4.4 mmol/L (3.5-5.1); Sodium 141 mmol/L (136-145)
[2020-03-12] MEDS ORDERED: Lisinopril 10 MG TAB PO SCH (07:34)
--- NOTE | 2020-03-12 12:07 | NM ---
EXAM: CARDIAC SPECT HISTORY: Coronary artery disease, status post CABG, atrial fibrillation, hypertension, dyslipidemia TECHNIQUE: A myocardial perfusion scan was performed using the single isotope 1 day protocol with felecia hnetium 99m sestamibi. [10 mCi] was injected intravenously for the rest exam followed by 30 mCi for the stress study. Exercise stress was monitored and interpreted by the nurse practitionerIsabela FINDINGS: Homogeneous tracer distribution is seen in the myocardial segments on stress and rest image s without fixed or reversible defects. Gated SPECT LVEF: 64% Wall motion exam: Normal IMPRESSION: Normal myocardial perfusion scan
[2020-03-12] MEDS: Enoxaparin Sodium 60 MG/0.6 ML SYRINGE SC SCH ×2 (12:43→21:12)
[2020-03-12] MEDS: Aspirin Chewable 81 MG TAB PO SCH (12:44)
[2020-03-12] MEDS: Carvedilol 3.125 MG TAB PO SCH ×2 (12:44→17:46)
[2020-03-12] MEDS: Tamsulosin HCl 0.4 MG CAP PO SCH (12:44)
[2020-03-12] MEDS: Loratadine 10 MG TAB PO SCH (12:44)
[2020-03-12] MEDS: Icosapent Ethyl 1 GM CAPSULE PO SCH ×2 (12:45→21:13)
[2020-03-12] MEDS: Lisinopril 5 MG TAB PO SCH (12:45)
--- NOTE | 2020-03-12 12:45 | PDOC.HOSPP ---
- Subjective Subjective: denies of chest pain. pt had episode of SVT while down for stress test. - Objective Vital Signs & Weight: Vital Signs (12 hours) Temp Pulse Resp BP Pulse Ox 03/12/20 12:22 97.9 F 69 17 122/65 99 03/12/20 07:15 98.1 F 74 16 130/82 98 03/12/20 04:00 98.7 F 72 16 113/61 95 Weight Weight 142 lb 8 oz I&O: 03/11/20 03/12/20 03/13/20 06:59 06:59 06:59 Intake Total 50 1450 Output Total 250 Balance -200 1450 Result Diagrams: 03/11/20 03:39 03/12/20 03:59 Radiology Reviewed by me: Yes EKG Reviewed by me: Yes Hospitalist ROS - Medication Medications: Active Medications Generic Name Dose Route Start Last Admin Trade Name Freq PRN Reason Stop Dose Admin Aspirin 162 mg 03/11/20 09:00 03/11/20 09:02 Aspirin Chewable 81 Mg Tab PO 162 mg QAM GURPREET Administration Atorvastatin Calcium 80 mg 03/11/20 21:00 03/11/20 21:31 Atorvastatin Calcium 40 Mg Tab PO 80 mg HS GURPREET Administration Carvedilol 3.125 mg 03/11/20 17:00 03/11/20 16:26 Carvedilol 3.125 Mg Tab PO 3.125 mg BID-WM GURPREET Administration Enoxaparin Sodium 60 mg 03/11/20 09:00 03/11/20 21:33 Enoxaparin Sodium 60 Mg/0.6 Ml Syringe SC 60 mg 0900,2100 GURPREET Administration Miscellaneous Medication 2 gm 03/11/20 09:00 03/11/20 21:32 Icosapent Ethyl 1 Gm Capsule PO 2 gm BID GURPREET Administration Tamsulosin HCl 0.4 mg 03/11/20 09:00 03/11/20 09:03 Tamsulosin Hcl 0.4 Mg Cap PO 0.4 mg QAM GURPREET Administration - Exam General Appearance: NAD Eye: PERRL ENT: normocephalic atraumatic Neck: supple Heart: RRR Respiratory: CTAB Gastrointestinal: soft Extremities: no cyanosis Skin: normal turgor Neurological: cranial nerve grossly intact Musculoskeletal: normal tone Hosp A/P - Plan The patient is a pleasant 80 years old gentleman who has significant past medical histories of CAD with bypass, hypertension, dyslipidemia, who presented to the ED with syncopal episode. He was found to have new onset of atrial fib with RVR. Patient was started on Cardizem drip, now converted back to normal sinus rhythm. New onset of atrial fib with RVR - with episode of SVT --cont Coreg for rate control --cont therapeutic Lovenox, transition to Eliquis when workup is complete --NM stress test pending. D/w [place] pt will need to stay d/t arrhythmias Elevated troponin --d/t above. No CP. CAD --with hx of bypass --resume home meds. Add Coreg for rate control Hypertension --BP stable. Add Coreg for above prob Dyslipidemia --cont statin Nasal congestion --start Flonase/Antihistamine BPH --cont Flomax DVT ppx: Patient is on Lovenox GI ppx: not indicated Code Status: Full Anticipated Dispo: Home when medically stable
[2020-03-12] MEDS: Fluticasone Propionate Nasal Spray 16 gm Bottle NASAL SCH (12:46)
--- NOTE | 2020-03-12 17:47 | CON ---
DATE OF CONSULTATION: 03/12/2020 HISTORY OF PRESENT ILLNESS: I am seeing Mr. 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 His problems are; 1. Presentation with syncope. 2. Initial rhythm is an atrial flutter, possibly typical at a rate of 110 beats per minute on EKG on 03/10/2020, subsequent resolution to sinus rhythm. 3. Occasional PVCs: a. Development of a nonsustained wide-complex arrhythmia run, changing into a narrow complex SVT of the same cycle length during exercise stress test. 4. Coronary artery disease: a. History of coronary artery bypass grafting surgery in 2004. b. Preserved LVEF on 2D echocardiogram on 03/11/2020 at 65% to 70%, moderate enlargement of the right atrium and left atrium as well, mild to moderate MR, mild to moderate TR, mild seen. 5. History of hypertension and hyperlipidemia. ALLERGIES: NONE NOTED. MEDICATIONS: At home included; 1. Lisinopril. 2. Lipitor. 3. Aspirin. 4. Vascepa. 5. Tamsulosin. SUBJECTIVE: Mr. Brennan was presenting on the after an episode of syncopal spell, which occurred while he was sitting down, slumped over, was passed out for a couple of seconds and then came back. His heart rhythm was noted to be irregular by EMS and was in atrial flutter on the first EKG, rapid ventricular rate response was noted, and he received transient IV diltiazem, there he converted back to sinus rhythm spontaneously and maintained sinus rhythm. On the other hand today, underwent a stress test, during which he developed another episode of tachycardia, at this point, nonsustained wide-complex rhythm organizing into a narrow complex SVT as noted above. This also spontaneously terminated after some IV Lopressor was given prior to that. He did not pass out this time. He denies angina-like discomfort. He has no PND, orthopnea, or lower extremity edema. No fever, chills, or cough. No neurological deficits. REVIEW OF SYSTEMS: Rest of 12-point system otherwise unremarkable. PAST MEDICAL HISTORY: As above. SURGICAL HISTORY: Also includes bilateral knee replacement and bypass surgery as above. SOCIAL HISTORY: The patient is alone. Denies EtOH or drug abuse. FAMILY HISTORY: Not contributory. OBJECTIVE DATA: VITAL SIGNS: Blood pressure 122/65, heart rate 69, respirations 17, temperature 97.9 degrees Fahrenheit. GENERAL: Reveals alert and oriented man, in no apparent distress. NECK: Supple. Jugular veins not distended. CHEST: Coarse without crackles. HEART: Sounds are regular to rate and rhythm. No murmur or gallop is appreciated. ABDOMEN: Benign. Bowel sounds positive. EXTREMITIES: Lower extremities without edema, clubbing, or cyanosis. Pulses are adequate. NEUROLOGIC: The patient is nonfocal. MUSCULOSKELETAL: Without joint swelling or deformity. SKIN: Without rash. DATABASE: Nuclear stress test today reveals LVEF 64%, normal myocardial perfusion scan is seen. The EKGs as noted above. Initial EKGs with atrial flutter. Subsequent EKGs revealed resolution of the flutter and sinus rhythm seen, 2.4 second pause noted at 5 a.m. this morning after a PAC. The review of the EKG during stress test reveals moderate frequency of polymorphic PVCs in the recovery phase of the stress test, short nonsustained wide-complex arrhythmia run most seen and that quickly organized into a rapid narrow complex tachycardia, pseudo R-prime is seen on aVL leads, which could suggest AV brooke reentrant tachycardia as a possible origin. The cycle length is about 260 milliseconds, which is different than the initial flutter cycle length which was about 200 milliseconds on presentation. LABORATORY DATA: White cell count 5.8, hemoglobin 11.3, INR 1.1. Sodium 141, potassium 4.4, BUN is 28, creatinine is 0.83. BNP is 237 on presentation. Troponin-I is 0.057, 0.044, and 0.067 consecutively. TSH is 0.2857. T3 and T4 are in normal range at 1 and 2.85 respectively. AST and ALT are 16 and 21. ASSESSMENT AND PLAN: Mr. Brennan is a very pleasant 80-year-old gentleman with prior history of coronary artery disease, bypass surgery over 15 years ago, who presented with a syncopal spell. Also had possibly typical atrial flutter on his first EKG, which was spontaneously terminated. Since then, he has done well, but also developed a brief wide-complex rhythm, initiated by PVC for about 5 beats, but then organized into a narrow complex SVT. The etiology of the SVT is unclear. Differential diagnosis could include AV brooke reentrant tachycardia, but atrial flutter is also a possibility as well. I have discussed these findings with him. He understands the concept of atrial fibrillation, atrial flutter, and supraventricular tachycardias and potential connection to his presenting symptoms. We discussed option of an EP study and possible ablation. Also discussed potential need for pacing, especially medical therapy is pursued and he is noted to have AV node dysfunction, LINQ monitor also has been discussed with him. For now, he is undecided. We will discuss with Dr. Sims and we will proceed at a later time once he is ready for the procedure. Job ID: [id number] [facility]
[2020-03-12] MEDS: Atorvastatin Calcium 40 MG TAB PO SCH (21:12)
[2020-03-13] MEDS: Tamsulosin HCl 0.4 MG CAP PO SCH (08:57)
[2020-03-13] MEDS: Enoxaparin Sodium 60 MG/0.6 ML SYRINGE SC SCH ×2 (08:57→21:10)
[2020-03-13] MEDS: Loratadine 10 MG TAB PO SCH (08:57)
[2020-03-13] MEDS: Aspirin Chewable 81 MG TAB PO SCH (08:58)
[2020-03-13] MEDS: Fluticasone Propionate Nasal Spray 16 gm Bottle NASAL SCH (08:58)
[2020-03-13] MEDS: Carvedilol 3.125 MG TAB PO SCH ×2 (09:07→17:50)
[2020-03-13] MEDS: Lisinopril 5 MG TAB PO SCH (09:08)
[2020-03-13] MEDS: Icosapent Ethyl 1 GM CAPSULE PO SCH ×2 (09:49→21:10)
--- NOTE | 2020-03-13 15:43 | PDOC.HOSPP ---
- Subjective Subjective: denies of chest pain or palpitation. - Objective Vital Signs & Weight: Vital Signs (12 hours) Temp Pulse Resp BP BP Pulse Ox 03/13/20 15:20 98.6 F 60 14 107/58 L 98 03/13/20 11:27 98.4 F 67 16 136/65 987 H 03/13/20 07:26 98.4 F 64 14 116/57 L 98 03/13/20 04:56 98.6 F 67 14 107/60 98 Weight Weight 142 lb 8 oz I&O: 03/12/20 03/13/20 03/14/20 06:59 06:59 06:59 Intake Total 1450 1220 Balance 1450 1220 Result Diagrams: 03/11/20 03:39 03/12/20 03:59 Radiology Reviewed by me: Yes EKG Reviewed by me: Yes Hospitalist ROS - Medication Medications: Active Medications Generic Name Dose Route Start Last Admin Trade Name Freq PRN Reason Stop Dose Admin Aspirin 162 mg 03/11/20 09:00 03/13/20 08:58 Aspirin Chewable 81 Mg Tab PO 162 mg QAM GURPREET Administration Atorvastatin Calcium 80 mg 03/11/20 21:00 03/12/20 21:12 Atorvastatin Calcium 40 Mg Tab PO 80 mg HS GURPREET Administration Carvedilol 3.125 mg 03/11/20 17:00 03/13/20 09:07 Carvedilol 3.125 Mg Tab PO 3.125 mg BID-WM GURPREET Administration Enoxaparin Sodium 60 mg 03/11/20 09:00 03/13/20 08:57 Enoxaparin Sodium 60 Mg/0.6 Ml Syringe SC 60 mg 0900,2100 GURPREET Administration Fluticasone Propionate 0 gm 03/12/20 09:00 03/13/20 08:58 Fluticasone Propionate Nasal [place] 16 Gm Bottle NASAL Not Given DAILY GURPREET Loratadine 10 mg 03/12/20 09:00 03/13/20 08:57 Loratadine 10 Mg Tab PO 10 mg DAILY GURPREET Administration Miscellaneous Medication 2 gm 03/11/20 09:00 03/13/20 09:49 Icosapent Ethyl 1 Gm Capsule PO 2 gm BID GURPREET Administration Tamsulosin HCl 0.4 mg 03/11/20 09:00 03/13/20 08:57 Tamsulosin Hcl 0.4 Mg Cap PO 0.4 mg QAM GURPREET Administration - Exam General Appearance: NAD Eye: PERRL ENT: normocephalic atraumatic Neck: supple Heart: RRR Respiratory: CTAB Gastrointestinal: soft Extremities: no cyanosis Skin: normal turgor Neurological: cranial nerve grossly intact Musculoskeletal: normal tone Psychiatric: normal affect Hosp A/P - Plan The patient is a pleasant 80 years old gentleman who has significant past medical histories of CAD with bypass, hypertension, dyslipidemia, who presented to the ED with syncopal episode. He was found to have new onset of atrial fib with RVR. Patient was started on Cardizem drip, now converted back to normal sinus rhythm. Syncope - likely cardiogenic --EP study tomorrow --cardiology is following New onset of atrial fib with RVR - with episode of SVT --cont Coreg for rate control --cont therapeutic Lovenox, transition to Eliquis when workup is complete --NM stress test pending. D/w Sims, pt will need to stay d/t arrhythmias Elevated troponin --d/t above. No CP. CAD --with hx of bypass --resume home meds. Add Coreg for rate control Hypertension --BP stable. Add Coreg for above prob Dyslipidemia --cont statin Nasal congestion --start Flonase/Antihistamine BPH --cont Flomax DVT ppx: Patient is on Lovenox GI ppx: not indicated Code Status: Full Anticipated Dispo: Home when medically stable
--- NOTE | 2020-03-13 17:23 | PDOC.EP ---
- Subjective Date: 03/13/20 Time: 17:20 - Review of Systems Constitutional: denies: chills, fever, malaise, sweats, weakness, other Respiratory: denies: cough, dry, hemoptysis, pleuritic pain, shortness of breath, SOB with excertion, sputum, wheezing, other Cardiology: denies: chest pain, edema, heart racing, light headedness, parox ysmal noc. dyspnea, orthopnea, palpitations, passing out, pleuritic pain, pressure, swelling, other Gastrointestinal: denies: abdominal pain, constipation, diarrhea, hematochezia, melena, nausea, vomitting, other Musculoskeletal: denies: unstable gait, falls, neck pain, shoulder pain, arm pain, hand pain, leg pain, foot pain, other Neurological: denies: headache, vision changes, other - Objective Allergies/Adverse Reactions: Allergies Allergy/AdvReac Type Severity Reaction Status Date / Time No Known Allergies Allergy Verified 03/11/20 01:12 Current Medications Acetaminophen (Acetaminophen 325 Mg Tab) 650 mg PO Q4H PRN PRN Reason: Headache/Fever/Mild Pain (1-3) Hydrocodone Bitart/Acetaminophen (Hydrocodone/Acetaminophen 7.5/325 Mg Tablet) 1 tab PO Q4H PRN PRN Reason: Moderate Pain (4-6) Aspirin (Aspirin Chewable 81 Mg Tab) 162 mg PO QAM [facility] Last Admin: 03/13/20 08:58 Dose: 162 mg Documented by: Atorvastatin Calcium (Atorvastatin Calcium 40 Mg Tab) 80 mg PO [facility] Last Admin: 03/12/20 21:12 Dose: 80 mg Documented by: Carvedilol (Carvedilol 3.125 Mg Tab) 3.125 mg PO BID-[facility] Last Admin: 03/13/20 09:07 Dose: 3.125 mg Documented by: Enoxaparin Sodium (Enoxaparin Sodium 60 Mg/0.6 Ml Syringe) 60 mg SC 0900,2100 [facility] Last Admin: 03/13/20 08:57 Dose: 60 mg Documented by: Fluticasone Propionate (Fluticasone Propionate Nasal [place] 16 Gm Bottle) 0 gm NASAL DAILY [facility] Last Admin: 03/13/20 08:58 Dose: Not Given Documented by: Loratadine (Loratadine 10 Mg Tab) 10 mg PO DAILY [facility] Last Admin: 03/13/20 08:57 Dose: 10 mg Documented by: Miscellaneous Medication (Icosapent Ethyl 1 Gm Capsule) 2 gm PO BID [facility] Last Admin: 03/13/20 09:49 Dose: 2 gm Documented by: Tamsulosin HCl (Tamsulosin Hcl 0.4 Mg Cap) 0.4 mg PO QAM [facility] Last Admin: 03/13/20 08:57 Dose: 0.4 mg Documented by: Vital Signs & Weight: Vital Signs Temp Pulse Resp BP Pulse Ox 03/13/20 15:20 98.6 F 60 14 107/58 L 98 03/13/20 11:27 98.4 F 67 16 136/65 987 H 03/13/20 07:26 98.4 F 64 14 116/57 L 98 Weight 142 lb 8 oz I/O: I/O 03/12/20 03/13/20 03/14/20 06:59 06:59 06:59 Intake Total 1450 1220 Balance 1450 1220 - Quality Measures CV meds: Eliquis: Yes - Physical Exam General: alert & oriented x3, appears well Neck: supple neck, no JVD/HJR Cardiology: regular rate and rhythm, no murmur Lungs: clear to auscultation Neurology: cranial nerve 2-12 intact Abdomen: unremarkable, active bowel sounds Extremities: warm Musculoskeletal: no pain - Labs Result Diagrams: 03/11/20 03:39 03/12/20 03:59 - Assessment/Plan Assessment/Plan: ASSESSMENT AND PLAN: Mr. Brennan is a very pleasant 80-year-old gentleman with prior history of coronary artery disease, bypass surgery over 15 years ago, who presented with a syncopal spell. Also had possibly typical atrial flutter on his first EKG, which was spontaneously terminated. Since then, he has done well, but also developed a brief wide-complex rhythm, initiated by PVC for about 5 beats, but then organized into a narrow complex SVT. The etiology of the SVT is unclear. Differential diagnosis could include AV brooke reentrant tachycardia, but atrial flutter is also a possibility as well. Problems: 1. Presentation with syncope. 2. Initial rhythm is an atrial flutter, possibly typical at a rate of 110 beats per minute on EKG on 03/10/2020, subsequent resolution to sinus rhythm. 3. Occasional PVCs: a. Development of a nonsustained wide-complex arrhythmia run, changing into a narrow complex SVT of the same cycle length during exercise stress test. 4. Coronary artery disease: a. History of coronary artery bypass grafting surgery in 2004. b. Preserved LVEF on 2D echocardiogram on 03/11/2020 at 65% to 70%, moderate enlargement of the right atrium and left atrium as well, mild to moderate MR, mild to moderate TR, mild seen. I have discussed these findings with him. He understands the concept of atrial fibrillation, atrial flutter, and supraventricular tachycardias and potential connection to his presenting symptoms. We discussed option of an EP study and possible ablation. Also discussed potential need for pacing, especially medical therapy is pursued and he is noted to have AV node dysfunction, LINQ monitor also has been discussed with him. 03/13/20. Stable overnight. Agreeable to above procedure am after discussion with Dr Sims. He is schduled for tomorrw around 11 am.
[2020-03-13] MEDS: Atorvastatin Calcium 40 MG TAB PO SCH (21:10)
[2020-03-14] MEDS: Loratadine 10 MG TAB PO SCH (07:53)
[2020-03-14] MEDS: Icosapent Ethyl 1 GM CAPSULE PO SCH ×2 (07:53→21:27)
[2020-03-14] MEDS: Tamsulosin HCl 0.4 MG CAP PO SCH (07:53)
[2020-03-14] MEDS: Carvedilol 3.125 MG TAB PO SCH (07:53)
[2020-03-14] MEDS: Aspirin Chewable 81 MG TAB PO SCH (07:53)
[2020-03-14] MEDS: Enoxaparin Sodium 60 MG/0.6 ML SYRINGE SC SCH (07:54)
[2020-03-14] MEDS: Fluticasone Propionate Nasal Spray 16 gm Bottle NASAL SCH (07:54)
[2020-03-14] MEDS ORDERED: Heparin 10,000 UNITS/ 10 ML VIAL ONE (10:01)
[2020-03-14] MEDS ORDERED: Lidocaine 1% (PF) 30 ML VIAL ONE ×3 (10:01→12:50)
[2020-03-14] MEDS ORDERED: EPHEDRINE 25 MG/5 ML SYRINGE ONE ×2 (10:49)
[2020-03-14] MEDS ORDERED: Lidocaine 1% PF 5 ML VIAL ONE (10:49)
[2020-03-14] MEDS ORDERED: PHENYLEPHRINE-NS 100 MCG/ML 10 ML SYRINGE ONE ×2 (10:49)
[2020-03-14] MEDS ORDERED: PROPOFOL 200 MG/20 ML VIAL ONE (10:49)
[2020-03-14] MEDS ORDERED: Phenylephrine 10 MG/ML VIAL ONE ×2 (11:33→11:45)
[2020-03-14] MEDS ORDERED: Isoproterenol 0.2 MG/1 ML AMP ONE (12:17)
[2020-03-14] MEDS ORDERED: CEFAZOLIN 1 GM VIAL ONE (13:05)
[2020-03-14] MEDS ORDERED: Gentamicin 80 MG/2 ML VIAL ONE (13:05)
--- NOTE | 2020-03-14 14:35 | PDOC.HOSPP ---
- Subjective Subjective: pt is agreeable to have the EP study done today, at 11AM. no acute event overnight. d/w family members at bedside - Objective Vital Signs & Weight: Vital Signs (12 hours) Temp Pulse Resp BP BP Pulse Ox 03/14/20 07:50 95 03/14/20 07:45 98.1 F 106 H 16 123/60 123/60 95 03/14/20 04:00 98.6 F 72 135/62 98 Weight Weight 142 lb 8 oz I&O: 03/13/20 03/14/20 03/15/20 06:59 06:59 06:59 Intake Total 1220 1800 Balance 1220 1800 Result Diagrams: 03/11/20 03:39 03/12/20 03:59 Radiology Reviewed by me: Yes EKG Reviewed by me: Yes Hospitalist ROS - Medication Medications: Active Medications Generic Name Dose Route Start Last Admin Trade Name Freq PRN Reason Stop Dose Admin Aspirin 162 mg 03/11/20 09:00 03/14/20 07:53 Aspirin Chewable 81 Mg Tab PO 162 mg QAM GURPREET Administration Atorvastatin Calcium 80 mg 03/11/20 21:00 03/13/20 21:10 Atorvastatin Calcium 40 Mg Tab PO 80 mg HS GURPREET Administration Carvedilol 3.125 mg 03/11/20 17:00 03/14/20 07:53 Carvedilol 3.125 Mg Tab PO 3.125 mg BID-WM GURPREET Administration Enoxaparin Sodium 60 mg 03/11/20 09:00 03/14/20 07:54 Enoxaparin Sodium 60 Mg/0.6 Ml Syringe SC Not Given [phone] GURPREET Fluticasone Propionate 0 gm 03/12/20 09:00 03/14/20 07:54 Fluticasone Propionate Nasal [place] 16 Gm Bottle NASAL 1 spray DAILY GURPRE[facility] Administration Loratadine 10 mg 03/12/20 09:00 03/14/20 07:53 Loratadine 10 Mg Tab PO 10 mg DAILY [facility]UR[facility] Administration Miscellaneous Medication 2 gm 03/11/20 09:00 03/14/20 07:53 Icosapent Ethyl 1 Gm Capsule PO 2 gm BID GUR[facility] Administration Tamsulosin HCl 0.4 mg 03/11/20 09:00 03/14/20 07:53 Tamsulosin Hcl 0.4 Mg Cap PO 0.4 mg QAM GURPREET Administration - Exam General Appearance: NAD Eye: PERRL ENT: normocephalic atraumatic Neck: supple Heart: RRR Respiratory: CTAB Gastrointestinal: soft Extremities: no cyanosis Skin: normal turgor Neurological: cranial nerve grossly intact Musculoskeletal: normal tone, normal strength Hosp A/P - Plan The patient is a pleasant 80 years old gentleman who has significant past medical history of CAD with bypass, hypertension, dyslipidemia, who presented to the ED with syncopal episode. He was found to have new onset of atrial fib with RVR. Patient was started on Cardizem drip, now converted back to normal sinus rhythm. Syncope - likely cardiogenic --EP study today --Further mgt as per Drs. Brewer/Bethany New onset of atrial fib with RVR - with episode of SVT --cont Coreg for rate control --cont therapeutic Lovenox, transition to Eliquis when workup is complete --NM stress test pending. D/w Bethany, pt will need to stay d/t arrhythmias Elevated troponin --d/t above. No CP. CAD --with hx of bypass --resume home meds. Add Coreg for rate control Hypertension --BP stable. Add Coreg for above prob Dyslipidemia --cont statin Nasal congestion --start Flonase/Antihistamine BPH --cont Flomax DVT ppx: Patient is on Lovenox GI ppx: not indicated Code Status: Full Anticipated Dispo: Home when medically stable
[2020-03-14] MEDS ORDERED: Acetaminophen/Codeine 30-300mg Tablet PO PRN ×2 (15:00)
--- NOTE | 2020-03-14 15:07 | RAD ---
Chest one view HISTORY: Pacemaker placement. COMPARISON: 03/10/2020. FINDINGS: Cardiac silhouette is magnified by projection. Pulmonary vasculature are unremarkable. Mediastinum is midline with postoperative changes and aortic calcification. A dual lead left subclavi an cardiac electronic device is now in place with leads overlying the right atrium and right ventricle. No evidence of pneumothorax. IMPRESSION : The new left subclavian cardiac pacer is in good radiographic position. Atherosclerosis.
--- NOTE | 2020-03-14 16:41 | OP ---
DATE OF PROCEDURE: 03/14/2020 PROCEDURE PERFORMED: Electrophysiology study and radiofrequency ablation. ADDITIONAL REFERRING PHYSICIAN: Dr. Harper, hospitalist. REASON FOR PROCEDURE: Mr. Brennan is 80-year-old gentleman, who has a history of coronary artery disease, bypass surgery 15 years ago, presented with a syncopal spell. Also had typical appearing atrial flutter on presentation, although low amplitude noted. He developed wide-complex rhythm, initiated by PVC for about 5 beats, then organized into narrow complex SVT. He is here for EP study and ablation procedure. DESCRIPTION OF PROCEDURE: The patient received deep sedation by Anesthesia specialist. Left and right femoral venous area was prepped, draped, and anesthetized using subcutaneous lidocaine, and the right femoral vein was cannulated x2 and two 8-Portuguese short sheaths were introduced. Through these sheaths, a ThermoCool SFST catheter was advanced to the right atrium. 3D map of the right atrium, His bundle, CS, RV was obtained. A decapolar catheter was advanced to the right atrium, right ventricle, His bundle, and CS position. Pacing, mapping, and recording were performed in each location including pacing the left atrium via the CS. The following findings were noted. Baseline rhythm was an atrial flutter. The cycle length was about 210 milliseconds. The CS activation was inconsistent with the right atrial flutter. Override pacing maneuvers seemed to have indicated left atrial flutter as well with short post pacing interval after CS 5-6 pacing was noted. On the other hand, multiple different circuits were also seen. No sustained typical isthmus dependent atrial flutter was demonstrated. The atrial flutter spontaneously terminated during the monitoring. The following findings were noted. Sinus rhythm was with cycle length 870 milliseconds, SD 97 milliseconds, QRS 83 milliseconds, QT 390 milliseconds, HV 48 milliseconds. The sinus node recovery time was monitored at 1866, minus baseline cycle length at that point was 1100, with corrected sinus node recovery time at 766 milliseconds, prolonged. AV Wenckebach cycle length noted at 350 milliseconds at baseline, retrograde Wenckebach cycle length was noted at 280 milliseconds. Concentric retrograde VA conduction was seen. Atrial extrastimuli testing demonstrated AV brooke ERP at 600/220 milliseconds and no definite dual AV node physiology present at baseline. At this point, ventricular extrastimuli testing was performed at [address] with 1, 2, and 3 extrastimuli, which were gradually decremented to the refractory period. The ventricular ERP was noted at 600/220 milliseconds. We were able to induce a couple of beats of nonsustained ventricular arrhythmias only. No sustained ventricular tachycardia was seen. These maneuvers continued on Isuprel administration. Also, no VT induced then. The burst atrial pacing was performed during Isuprel. We were able to induce a narrow complex sustained tachycardia with short VA timing, less than 60 milliseconds. The tachycardia cycle length was about 288 milliseconds. Override ventricular pacing terminated the arrhythmia. Due to the short VA timing similar to the clinical presentation during stress test, the AV brooke reentrant tachycardia was diagnosed. Slow pathway modification was performed with a help of SFST catheter. Initially 40 zaragoza at 50 degrees with low-flow lesions were placed at the slow pathway area. Due to increased impedances, couple of lesions at 25 zaragoza with irrigation also delivered. A total of [address] and total duration of ablation is 1 minute and 28 seconds. After this, burst atrial pacing induction was again attempted on and off Isuprel. We were unable to reinduce atrial or supraventricular arrhythmias. At the end of the case, cardiac silhouette did not change. The catheter was removed from the body. The sheaths were removed and manual pressure was performed to obtain hemostasis. CONCLUSION: 1. Inducible AV brooke reentrant tachycardia similar to the EKG documentation during nuclear stress test. 2. Slow pathway modification eliminated inducibility of AV brooke reentrant tachycardia. 3. Multi-circuit left atrial arrhythmias are also noted with spontaneous termination and also cardioversion performed. 4. No evidence of accessory pathway. 5. Abnormal sinus brooke function present based on the prolonged sinus node recovery time. PLAN: Proceed to dual-chamber pacemaker and attempt medical therapy. Consider pulmonary venous isolation after adequate anticoagulation if recurrent atrial arrhythmias are seen. Job ID: [id number]
[2020-03-14] MEDS: Dronedarone HCl 400 MG TAB PO SCH (17:14)
[2020-03-14] MEDS: ceFAZolin 1 GM/D5W 1 GM in Premix Bag 1 BAG IVPB SCH (21:27)
[2020-03-14] MEDS: Atorvastatin Calcium 40 MG TAB PO SCH (21:28)
[2020-03-15] MEDS: ceFAZolin 1 GM/D5W 1 GM in Premix Bag 1 BAG IVPB SCH (05:35)
[2020-03-15] MEDS: Tamsulosin HCl 0.4 MG CAP PO SCH (08:55)
[2020-03-15] MEDS: Aspirin Chewable 81 MG TAB PO SCH (08:56)
[2020-03-15] MEDS: Icosapent Ethyl 1 GM CAPSULE PO SCH ×2 (08:56→20:49)
[2020-03-15] MEDS: Cephalexin 250 MG CAP PO SCH ×3 (08:56→20:50)
[2020-03-15] MEDS: Dronedarone HCl 400 MG TAB PO SCH ×2 (08:56→16:48)
[2020-03-15] MEDS: Loratadine 10 MG TAB PO SCH (08:56)
[2020-03-15] MEDS: Fluticasone Propionate Nasal Spray 16 gm Bottle NASAL SCH (08:57)
--- NOTE | 2020-03-15 15:05 | PDOC.HOSPP ---
- Subjective Subjective: Patient was seen examined at bedside. Patient status post EP study with, pacemaker placement. He went into atrial fib with RVR last night, and was started on Cardizem briefly - Objective Vital Signs & Weight: Vital Signs (12 hours) Temp Pulse Resp BP BP Pulse Ox 03/15/20 11:12 97.9 F 74 16 121/57 L 97 03/15/20 07:19 98.2 F 84 16 136/63 99 03/15/20 03:56 98.2 F 79 15 117/58 L 97 Weight Weight 142 lb 8 oz I&O: 03/14/20 03/15/20 03/16/20 06:59 06:59 06:59 Intake Total 1800 1140 Output Total 500 Balance 1800 640 Result Diagrams: 03/11/20 03:39 03/12/20 03:59 Radiology Reviewed by me: Yes EKG Reviewed by me: Yes Hospitalist ROS - Medication Medications: Active Medications Generic Name Dose Route Start Last Admin Trade Name Freq PRN Reason Stop Dose Admin Aspirin 81 mg 03/15/20 09:00 03/15/20 08:56 Aspirin Chewable 81 Mg Tab PO 81 mg DAILY GURPREET Administration Atorvastatin Calcium 80 mg 03/11/20 21:00 03/14/20 21:28 Atorvastatin Calcium 40 Mg Tab PO 80 mg HS GURPREET Administration Cephalexin 500 mg 03/15/20 09:00 03/15/20 08:56 Cephalexin 250 Mg Cap PO 03/21/20 21:01 500 mg TID GURPREET Administration Dronedarone 400 mg 03/14/20 17:00 03/15/20 08:56 Dronedarone Hcl 400 Mg Tab PO 400 mg BID-WM GURPREET Administration Fluticasone Propionate 0 gm 03/12/20 09:00 03/15/20 08:57 Fluticasone Propionate Nasal [place] 16 Gm Bottle NASAL 1 spray DAILY [facility]UR[facility] Administration Loratadine 10 mg 03/12/20 09:00 03/15/20 08:56 Loratadine 10 Mg Tab PO 10 mg DAILY [facility]URPRE[facility] Administration Miscellaneous Medication 2 gm 03/11/20 09:00 03/15/20 08:56 Icosapent Ethyl 1 Gm Capsule PO 2 gm BID [facility]UR[facility] Administration Sodium Chloride 10 ml 03/14/20 15:00 03/15/20 08:57 Flush - Normal Saline 10 Ml Syringe IVF 10 ml PRN PRN Administration Saline Flush Tamsulosin HCl 0.4 mg 03/11/20 09:00 03/15/20 08:55 Tamsulosin Hcl 0.4 Mg Cap PO 0.4 mg QAM GURPREET Administration - Exam General Appearance: NAD Eye: PERRL ENT: normocephalic atraumatic Neck: supple, JVD Heart: RRR, no murmur Respiratory: CTAB Gastrointestinal: soft, non-tender Extremities: no cyanosis Skin: normal turgor Hosp A/P - Plan The patient is a pleasant 80 years old gentleman who has significant past medical history of CAD with bypass, hypertension, dyslipidemia, who presented to the ED with syncopal episode. He was found to have new onset of atrial fib with RVR. Patient was started on Cardizem drip, now converted back to normal sinus rhythm. Syncope - likely cardiogenic --s/p EP study and pacer placement AFib with RVR --converted back to NSR. Cardiology started on Multaq --Start Eliquis on Thursday per cardiology --cont tele monitor Elevated troponin --d/t above. No CP. CAD --with hx of bypass --resume home meds. Add Coreg for rate control Hypertension --BP stable. Add Coreg for above prob Dyslipidemia --cont statin Nasal congestion --start Flonase/Antihistamine BPH --cont Flomax DVT ppx: Patient is on Lovenox GI ppx: not indicated Code Status: Full Anticipated Dispo: Home when medically stable
[2020-03-15] MEDS ORDERED: Diltiazem 125 MG in Sodium Chloride 0.9% 100 ML IVPB SCH (19:30)
[2020-03-15] MEDS: Atorvastatin Calcium 40 MG TAB PO SCH (20:49)
[2020-03-16] MEDS ORDERED: Diltiazem 125 MG in Sodium Chloride 0.9% 100 ML IVPB SCH (09:36)
[2020-03-16] MEDS: Dronedarone HCl 400 MG TAB PO SCH ×2 (09:38→17:19)
[2020-03-16] MEDS: Aspirin Chewable 81 MG TAB PO SCH (09:38)
[2020-03-16] MEDS: Cephalexin 250 MG CAP PO SCH ×3 (09:38→21:01)
[2020-03-16] MEDS: Loratadine 10 MG TAB PO SCH (09:39)
[2020-03-16] MEDS: Icosapent Ethyl 1 GM CAPSULE PO SCH ×2 (09:39→21:01)
[2020-03-16] MEDS: Tamsulosin HCl 0.4 MG CAP PO SCH (09:40)
[2020-03-16] MEDS: Fluticasone Propionate Nasal Spray 16 gm Bottle NASAL SCH (09:40)
--- NOTE | 2020-03-16 10:34 | PDOC.EP ---
- Subjective Date: 03/15/20 Time: 08:00 Interval History: Feels well today. Had some bradycardia and low BP overnight and dilt gtt was stopped. Otherwise no new events. - Review of Systems Constitutional: denies: chills, fever, malaise, sweats, weakness Respiratory: denies: cough, shortness of breath, wheezing Cardiology: denies: chest pain, edema, heart racing Gastrointestinal: denies: abdominal pain, constipation, diarrhea Musculoskeletal: denies: falls, leg pain, foot pain - Objective Allergies/Adverse Reactions: Allergies Allergy/AdvReac Type Severity Reaction Status Date / Time No Known Allergies Allergy Verified 03/11/20 01:12 Current Medications Acetaminophen (Acetaminophen 325 Mg Tab) 650 mg PO Q4H PRN PRN Reason: Headache/Fever/Mild Pain (1-3) Acetaminophen/Codeine Phosphate (Acetaminophen/Codeine 30-300mg Tablet) 1 tab PO Q4H PRN PRN Reason: Mild Pain (1-3) Acetaminophen/Codeine Phosphate (Acetaminophen/Codeine 30-300mg Tablet) 2 tab PO Q4H PRN PRN Reason: Moderate Pain (4-6) Hydrocodone Bitart/Acetaminophen (Hydrocodone/Acetaminophen 7.5/325 Mg Tablet) 1 tab PO Q4H PRN PRN Reason: Moderate Pain (4-6) Apixaban (Apixaban 5 Mg Tab) 5 mg PO BID [facility] Atorvastatin Calcium (Atorvastatin Calcium 40 Mg Tab) 80 mg PO HS [facility] Last Admin: 03/15/20 20:49 Dose: 80 mg Documented by: Cephalexin (Cephalexin 250 Mg Cap) 500 mg PO TID [facility] Stop: 03/21/20 21:01 Last Admin: 03/16/20 09:38 Dose: 500 mg Documented by: Dronedarone (Dronedarone Hcl 400 Mg Tab) 400 mg PO BID-[facility] Last Admin: 03/16/20 09:38 Dose: 400 mg Documented by: Fluticasone Propionate (Fluticasone Propionate Nasal [place] 16 Gm Bottle) 0 gm NASAL DAILY [facility] Last Admin: 03/16/20 09:40 Dose: 1 spray Documented by: Diltiazem HCl 125 mg/ Sodium (Chloride) 125 mls @ 2.5 mls/hr IVPB INF GURPREET; P rotocol Loratadine (Loratadine 10 Mg Tab) 10 mg PO DAILY [facility] Last Admin: 03/16/20 09:39 Dose: 10 mg Documented by: Metoprolol Succinate (Metoprolol Succinate Xl 50 Mg Tab) 50 mg PO DAILY [facility] Metoprolol Succinate (Metoprolol Succinate Xl 50 Mg Tab) 50 mg PO NOW [facility] Stop: 03/16/20 12:00 Miscellaneous Medication (Icosapent Ethyl 1 Gm Capsule) 2 gm PO BID [facility] Last Admin: 03/16/20 09:39 Dose: 2 gm Documented by: Sodium Chloride (Flush - Normal Saline 10 Ml Syringe) 10 ml IVF PRN PRN PRN Reason: Saline Flush Last Admin: 03/15/20 08:57 Dose: 10 ml Documented by: Tamsulosin HCl (Tamsulosin Hcl 0.4 Mg Cap) 0.4 mg PO QAM [facility] Last Admin: 03/16/20 09:40 Dose: 0.4 mg Documented by: Vital Signs & Weight: Vital Signs Temp Pulse Resp BP Pulse Ox 03/16/20 07:16 98.6 F 71 14 106/61 93 L 03/16/20 04:00 99.1 F 83 16 106/58 L 95 Weight 142 lb 8 oz I/O: I/O 03/15/20 03/16/20 03/17/20 06:59 06:59 06:59 Intake Total 1140 1632 Output Total 500 625 Balance 640 1007 - Quality Measures Condition: Atrial Fibrillation/Flutter (hx or current) CV meds: Eliquis: Yes - Physical Exam General: alert & oriented x3, appears well, no apparent distress, speech clear, affect appropriate HEENT: mucus membranes moist, normocephaly, mucus membranes dry Neck: supple neck, midline trachea, no lymphadenopathy Cardiology: regular rate and rhythm, no murmur, PMI nondisplaced Lungs: clear to auscultation, normal breath sounds, no wheeze, rales, rhonchi Neurology: cranial nerve 2-12 intact, grossly intact, no lateralizing findings Abdomen: unremarkable, active bowel sounds, no pulsations/bruits Extremities: dry - Labs Result Diagrams: 03/11/20 03:39 03/12/20 03:59 - EKG Interpretation EKG Method: Telemetry EKG shows: Sinus rhythm - Assessment/Plan Assessment/Plan: ASSESSMENT AND PLAN: Mr. Brennan is a very pleasant 80-year-old gentleman with prior history of coronary artery disease, bypass surgery over 15 years ago, who presented with a syncopal spell. Also had possibly typical atrial flutter on his first EKG, which was spontaneously terminated. Since then, he has done well, but also developed a brief wide-complex rhythm, initiated by PVC for about 5 beats, but then organized into a narrow complex SVT. Problems: 1. Presentation with syncope. 2. Initial rhythm is an atrial flutter, possibly typical at a rate of 110 beats per minute on EKG on 03/10/2020, subsequent resolution to sinus rhythm. 3. Occasional PVCs: a. Development of a nonsustained wide-complex arrhythmia run, changing into a narrow complex SVT of the same cycle length during exercise stress test. 4. Coronary artery disease: a. History of coronary artery bypass grafting surgery in 2004. b. Preserved LVEF on 2D echocardiogram on 03/11/2020 at 65% to 70%, moderate enlargement of the right atrium and left atrium as well, mild to moderate MR, mild to moderate TR, mild seen. Inducible for AVNRT during EPS s/p slow pathway modification. Not inducible for right atrial/typical flutter. Since then he as gone into AFlutter RVR with variable AV conduction, appears atypical. Started on Multaq for suppression. Converted overnight and dilt gtt was stopped d/t bradycardia with hypotension. Rhythm stable this AM. OAC indicated.
--- NOTE | 2020-03-16 10:39 | PDOC.EP ---
- Subjective Date: 03/16/20 Time: 10:37 Interval History: converted back to variable AFib/FL. Dilt gtt restarted at 2.5mg/hr. Feels fair. No new events. - Review of Systems Constitutional: denies: chills, fever, weakness Respiratory: denies: cough, shortness of breath, wheezing Cardiology: reports: heart racing. denies: chest pain, edema, light headedness, passing out Gastrointestinal: denies: abdominal pain, constipation, hematochezia - Objective Allergies/Adverse Reactions: Allergies Allergy/AdvReac Type Severity Reaction Status Date / Time No Known Allergies Allergy Verified 03/11/20 01:12 Current Medications Acetaminophen (Acetaminophen 325 Mg Tab) 650 mg PO Q4H PRN PRN Reason: Headache/Fever/Mild Pain (1-3) Acetaminophen/Codeine Phosphate (Acetaminophen/Codeine 30-300mg Tablet) 1 tab PO Q4H PRN PRN Reason: Mild Pain (1-3) Acetaminophen/Codeine Phosphate (Acetaminophen/Codeine 30-300mg Tablet) 2 tab PO Q4H PRN PRN Reason: Moderate Pain (4-6) Hydrocodone Bitart/Acetaminophen (Hydrocodone/Acetaminophen 7.5/325 Mg Tablet) 1 tab PO Q4H PRN PRN Reason: Moderate Pain (4-6) Apixaban (Apixaban 5 Mg Tab) 5 mg PO BID [facility] Atorvastatin Calcium (Atorvastatin Calcium 40 Mg Tab) 80 mg PO [facility] Last Admin: 03/15/20 20:49 Dose: 80 mg Documented by: Cephalexin (Cephalexin 250 Mg Cap) 500 mg PO TID [facility] Stop: 03/21/20 21:01 Last Admin: 03/16/20 09:38 Dose: 500 mg Documented by: Dronedarone (Dronedarone Hcl 400 Mg Tab) 400 mg PO BID-[facility] Last Admin: 03/16/20 09:38 Dose: 400 mg Documented by: Fluticasone Propionate (Fluticasone Propionate Nasal [place] 16 Gm Bottle) 0 gm NASAL DAILY [facility] Last Admin: 03/16/20 09:40 Dose: 1 spray Documented by: Diltiazem HCl 125 mg/ Sodium (Chloride) 125 mls @ 2.5 mls/hr IVPB INF [facility]; Protocol Loratadine (Loratadine 10 Mg Tab) 10 mg PO DAILY [facility] Last Admin: 03/16/20 09:39 Dose: 10 mg Documented by: Metoprolol Succinate (Metoprolol Succinate Xl 50 Mg Tab) 50 mg PO DAILY [facility] Metoprolol Succinate (Metoprolol Succinate Xl 50 Mg Tab) 50 mg PO NOW [facility] Stop: 03/16/20 12:00 Miscellaneous Medication (Icosapent Ethyl 1 Gm Capsule) 2 gm PO BID [facility] Last Admin: 03/16/20 09:39 Dose: 2 gm Documented by: Sodium Chloride (Flush - Normal Saline 10 Ml Syringe) 10 ml IVF PRN PRN PRN Reason: Saline Flush Last Admin: 03/15/20 08:57 Dose: 10 ml Documented by: Tamsulosin HCl (Tamsulosin Hcl 0.4 Mg Cap) 0.4 mg PO QAM [facility] Last Admin: 03/16/20 09:40 Dose: 0.4 mg Documented by: Vital Signs & Weight: Vital Signs Temp Pulse Resp BP Pulse Ox 03/16/20 07:16 98.6 F 71 14 106/61 93 L 03/16/20 04:00 99.1 F 83 16 106/58 L 95 Weight 142 lb 8 oz I/O: I/O 03/15/20 03/16/20 03/17/20 06:59 06:59 06:59 Intake Total 1140 1632 Output Total 500 625 Balance 640 1007 - Quality Measures Condition: Atrial Fibrillation/Flutter (hx or current) CV meds: Eliquis: Yes - Physical Exam General: alert & oriented x3, appears well, speech clear HEENT: mucus membranes moist, normocephaly Neck: supple neck, midline trachea, no lymphadenopathy Cardiology: regular rate and rhythm, no murmur, PMI nondisplaced Lungs: clear to auscultation, normal breath sounds, no wheeze, rales, rhonchi Neurology: cranial nerve 2-12 intact, grossly intact, no lateralizing findings Abdomen: unremarkable, active bowel sounds, no pulsations/bruits Extremities: dry, strong pulses, warm - Labs Result Diagrams: 03/11/20 03:39 03/12/20 03:59 - EKG Interpretation EKG Method: Telemetry EKG shows: Atypical atrial flutter - Assessment/Plan Assessment/Plan: ASSESSMENT AND PLAN: Mr. Brennan is a very pleasant 80-year-old gentleman with prior history of coronary artery disease, bypass surgery over 15 years ago, who presented with a syncopal spell. Also had possibly typical atrial flutter on his first EKG, which was spontaneously terminated. Since then, he has done well, but also developed a brief wide-complex rhythm, initiated by PVC for about 5 beats, but then organized into a narrow complex SVT. Problems: 1. Presentation with syncope. 2. Initial rhythm is an atrial flutter, possibly typical at a rate of 110 beats per minute on EKG on 03/10/2020, subsequent resolution to sinus rhythm. 3. Occasional PVCs: a. Development of a nonsustained wide-complex arrhythmia run, changing into a narrow complex SVT of the same cycle length during exercise stress test. 4. Coronary artery disease: a. History of coronary artery bypass grafting surgery in 2004. b. Preserved LVEF on 2D echocardiogram on 03/11/2020 at 65% to 70%, moderate enlargement of the right atrium and left atrium as well, mild to moderate MR, mild to moderate TR, mild seen. 5. Dual chamber pacemaker -ATP on but not successful at terminating his flutter episodes Inducible for AVNRT during EPS s/p slow pathway modification. Not inducible for right atrial/typical flutter. Since then he as gone into AFlutter RVR with variable AV conduction, appears atypical. Started on Multaq for suppression. Converted to AF overnight and dilt gtt was resumed. PO dilt stopped in favor of Metoprolol succinate 50mg daily as there are wide complex runs seen on tele, which are likely abberancy. ATP attempts are not successful through his PPM. Starting Eliquis for OAC 5mg BID, per age/weight/Creat. Watch for hematoma and use PRN pressure dressing if bleeding occurs at pacemaker site. If medically stable, may DC home over the weekend in AF if adequately rate controlled and continue multaq with OAC. If multaq fails, he may require amiodarone and eventually ablation, although ablation should wait until 30 days post pacemaker implant to prevent lead dislodgement.
[2020-03-16] MEDS ORDERED: Sodium Chloride 0.9% 500 ML IV SCH (12:30)
[2020-03-16] MEDS ORDERED: Sodium Chloride 0.9% 500 ML IVPB SCH (13:00)
[2020-03-16] MEDS ORDERED: Sodium Chloride 0.9% 1,000 ML IV SCH (14:15)
--- NOTE | 2020-03-16 14:21 | PDOC.HOSPP ---
- Subjective Subjective: pt converted back into AFib/Flutter overnight. Restarted back on Cardizem gtt, wean off this AM. EP switched from PO cardizem to Metoprol succinate d/t evidence of WCT on tele. Later in the day. His BP bottomed out. He requires bolus 500 ml x 2, asymptomatic otherwise. Cardiology was notified - Objective Vital Signs & Weight: Vital Signs (12 hours) Temp Pulse Resp BP BP Pulse Ox 03/16/20 11:40 98.3 F 77 16 116/56 L 97 03/16/20 07:16 98.6 F 71 14 106/61 93 L 03/16/20 04:00 99.1 F 83 16 106/58 L 95 Weight Weight 142 lb 8 oz I&O: 03/15/20 03/16/20 03/17/20 06:59 06:59 06:59 Intake Total 1140 1632 Output Total 500 625 Balance 640 1007 Result Diagrams: 03/11/20 03:39 03/12/20 03:59 Radiology Reviewed by me: Yes EKG Reviewed by me: Yes Hospitalist ROS - Medication Medications: Active Medications Generic Name Dose Route Start Last Admin Trade Name Freq PRN Reason Stop Dose Admin Atorvastatin Calcium 80 mg 03/11/20 21:00 03/15/20 20:49 Atorvastatin Calcium 40 Mg Tab PO 80 mg HS GURPREET Administration Cephalexin 500 mg 03/15/20 09:00 03/16/20 09:38 Cephalexin 250 Mg Cap PO 03/21/20 21:01 500 mg TID GURPREET Administration Dronedarone 400 mg 03/14/20 17:00 03/16/20 09:38 Dronedarone Hcl 400 Mg Tab PO 400 mg BID-WM GURPREET Administration Fluticasone Propionate 0 gm 03/12/20 09:00 03/16/20 09:40 Fluticasone Propionate Nasal Loiza 16 Gm Bottle NASAL 1 spray DAILY GURPREET Administration Sodium Chloride 500 mls @ 999 mls/hr 03/16/20 13:00 03/16/20 12:54 Normal Saline 0.9% IVPB 03/16/20 15:00 500 mls INF GURPREET Administration Sodium Chloride 1,000 mls @ 75 mls/hr 03/16/20 14:15 03/16/20 14:15 Normal Saline 0.9% IV 1,000 mls INF GURPREET Administration Loratadine 10 mg 03/12/20 09:00 03/16/20 09:39 Loratadine 10 Mg Tab PO 10 mg DAILY GURPREET Administration Miscellaneous Medication 2 gm 03/11/20 09:00 03/16/20 09:39 Icosapent Ethyl 1 Gm Capsule PO 2 gm BID GURPREET Administration Sodium Chloride 10 ml 03/14/20 15:00 03/15/20 08:57 Flush - Normal Saline 10 Ml Syringe IVF 10 ml PRN PRN Administration Saline Flush Tamsulosin HCl 0.4 mg 03/11/20 09:00 03/16/20 09:40 Tamsulosin Hcl 0.4 Mg Cap PO 0.4 mg QAM GURPREET Administration - Exam General Appearance: NAD Eye: PERRL ENT: normocephalic atraumatic Neck: supple Heart: RRR Respiratory: CTAB Gastrointestinal: soft Extremities: no cyanosis Skin: normal turgor Neurological: cranial nerve grossly intact Musculoskeletal: normal tone Psychiatric: normal affect Hosp A/P - Plan The patient is a pleasant 80 years old gentleman who has significant past medical history of CAD with bypass, hypertension, dyslipidemia, who presented to the ED with syncopal episode. He was found to have new onset of atrial fib with RVR. Patient was started on Cardizem drip, now converted back to normal sinus rhythm. Hypotension - likley d/t medication. --s/p bolus of 500 ml x 2. asymptomatic, monitor closely. Syncope - likely cardiogenic --s/p EP study and pacer placement AFib with RVR --variable. pt was converted back and forth. Cardiology started on Multaq and Eliquis --cont tele monitor, further mgt as per EP --pt was started on Toprol XL, BP does not tolerate Elevated troponin --d/t above. No CP. CAD --with hx of bypass --resume home meds. Add Coreg for rate control Hypertension --BP stable. Add Coreg for above prob Dyslipidemia --cont statin Nasal congestion --start Flonase/Antihistamine BPH --cont Flomax DVT ppx: Patient is on Lovenox GI ppx: not indicated Code Status: Full Anticipated Dispo: Home when medically stable
[2020-03-16] MEDS: Apixaban 5 MG TAB PO SCH (21:00)
[2020-03-16] MEDS ORDERED: Apixaban 5 MG TAB PO SCH (21:00)
[2020-03-16] MEDS: Atorvastatin Calcium 40 MG TAB PO SCH (21:01)
[2020-03-17 04:37] LABS: #Eosinphils 0.2 thou/uL (0.0-0.7); #Lymphocytes 1.2 thou/uL (1.20-3.40); #Monocytes 0.6 thou/uL (0.11-0.59); #Neutrophils 3.9 thou/uL (1.40-6.50); %Basophils 0.4 % (0.0-1.0); %Eosinophils 3.5 % (0.0-10.0); %Lymphocytes 20.3 % (21.0-51.0); %Monocytes 9.8 % (0.0-10.0); %Neutrophils 66.1 % (42.0-75.0); Hemoglobin 10.2 g/dL (14.0-18.0); Mean Corpuscular HGB CONC 34.4 g/dL (32.0-36.0); Mean Corpuscular Hemoglobin 31.1 pg (27.0-31.0); Mean Corpuscular Volume 90.3 fL (78.0-98.0); Mean Platelet Volume 8.4 fL (7.4-10.4); Platelet Count 123 thou/uL (130-400); RBC Distribution Width 12.7 % (11.5-14.5); Red Blood Cell (RBC) Count 3.29 mill/uL (4.70-6.10); White Blood Cell (WBC) Count 5.9 thou/uL (4.8-10.8)
[2020-03-17 05:05] LABS: Anion Gap 9 mmol/L (10-20); BUN (Urea Nitrogen) 21 mg/dL (8.4-25.7); Calc. Creatinine Clearance 63 mL/min (70-130); Carbon Dioxide 24 mmol/L (23-31); Chloride 107 mmol/L (98-107); Estimated GFR-MDRD 89; Glucose 100 mg/dL (83-110); Potassium 4.1 mmol/L (3.5-5.1); Sodium 136 mmol/L (136-145)
[2020-03-17] MEDS: Dronedarone HCl 400 MG TAB PO SCH (07:53)
[2020-03-17] MEDS: Apixaban 5 MG TAB PO SCH (07:54)
[2020-03-17] MEDS: Cephalexin 250 MG CAP PO SCH (07:54)
[2020-03-17] MEDS: Fluticasone Propionate Nasal Spray 16 gm Bottle NASAL SCH (07:55)
[2020-03-17] MEDS: Icosapent Ethyl 1 GM CAPSULE PO SCH (07:56)
[2020-03-17] MEDS: Tamsulosin HCl 0.4 MG CAP PO SCH (07:57)
[2020-03-17] MEDS: Loratadine 10 MG TAB PO SCH (07:57)
[2020-03-17 11:05] VITALS: TEMP 98.9
[2020-03-17 11:19] VITALS: BP 122/59
--- NOTE | 2020-03-20 09:46 | PQF ---
CLINICAL DOCUMENTATION CLARIFICATION FORM: Dear : Bratolo Mckinnon Date / Time: 03/20/20 09:45 Please exercise your independent, professional judgment in responding to the clarification form. Clinical indicators are provided on the bottom of this form for your review Please check appropriate box(es): Syncope Due to: [ X ] Atrial Fibrillation [ ] SSS [ ] Unknown etiology [ ] Other diagnosis, please specify [ ] Unable to determine Physician Signature: Date/Time: For continuity of documentation, please document condition throughout progress notes and discharge summary. Thank You. To be completed by CDI/Coding staff for physician review: Present Clinical Indicators - Signs / Symptoms / Labs Results and Location in Medical Record [x] CC: syncope HP 03/10 [x] patient was pale diaphoretic and with palpitation HP 03/10 [x] EKG: shows aflutter ED Notes 03/10 [x] syncope likely cardiogenic PN 03/16 [x] Pulse: 03/1480=211 03/1537=363 Vital Signs 03/14 Present Risk Factors Results and Location in Medical Record [x] 80 years old male HP 03/10 [x] HTN HP 03/10 [x] Hypercholesterolemia HP 03/10 [x] CAD HP 03/10 [x] Afib HP 03/10 Present Treatments Results and Location in Medical Record [x] EKG ED Notes 03/10 [x] Pacemaker insertion OP Note 03/11 [x] Echocardiogram Collected 03/11 [x] EP study with ablation OP Note 03/14 [x] Cardizem 125mg IV MAR 03/10 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
--- NOTE | 2020-03-20 15:47 | DIS ---
DATE OF ADMISSION: 03/11/2020 DATE OF DISCHARGE: 03/17/2020 DISCHARGE DIAGNOSES: 1. Cardiac syncope due to arrhythmia. 2. Inducible AV brooke reentrant tachycardia. 3. Atrial fibrillation with rapid ventricular response. 4. History of coronary artery disease. 5. Dyslipidemia. 6. Hypertension. 7. History of BPH. DISCHARGE MEDICATIONS: 1. Eliquis 5 mg orally twice daily. 2. Multaq 400 mg orally twice daily. 3. Toprol-XL 25 mg orally nightly. 4. Keflex 500 mg orally t.i.d. for 5 days. 5. Atorvastatin 80 mg orally nightly. 6. Vascepa 2 tablets orally twice daily. 7. Tamsulosin 0.4 mg orally daily. HISTORY OF PRESENT ILLNESS AND HOSPITAL COURSE: The patient is an 80-year-old male with past medical history of coronary artery disease, status post CABG 15 years ago; hypertension; and hyperlipidemia; who presented to the hospital with a syncopal episode. He was found to have typical atrial flutter on presentation. He subsequently developed wide-complex rhythm, which then organized to SVT. The patient underwent EP study with ablation and pacemaker placement. Postoperatively, the patient converted into atrial fibrillation and was started on diltiazem drip, which was weaned off into metoprolol succinate and Multaq. The patient was also started on Eliquis. At this time, he is stable for discharge with outpatient followup with Cardiology. Job ID: [id number]
--- NOTE | 2020-03-23 13:15 | EKG ---
Test Reason : Blood Pressure : / mmHG Vent. Rate : 082 BPM Atrial Rate : 082 BPM P-R Int : 092 ms QRS Dur : 096 ms QT Int : 384 ms P-R-T Axes : -17 100 026 degrees QTc Int : 448 ms Electronic atrial pacemaker Incomplete right bundle branch block Possible Right ventricular hypertrophy Abnormal ECG When compared with ECG of 10-MAR-2020 20:32, (Unconfirmed) Electronic atrial pacemaker has replaced Atrial flutter Vent. rate has decreased BY [address] Max SANTAMARIA ([id number]) on 03/23/2020 1:15:03 PM Referred By: [facility] Confirmed By:DR. Max SANTAMARIA
== END 2020-03-17 12:01 | disposition home or self-care (01) | DRG 244 ==
LOC: ERS 20:18 → 2NO 03-11 01:06
PROVIDERS: ADMIT Internal Medicine; ATTEND Internal Medicine
PROC: 0JH606Z Insertion of Pacemaker, Dual Chamber into Chest Subcutaneous Tissue and Fascia, Open Approach (ICD-10-PCS; principal; 2020-03-14)
PROC: 02HK3JZ Insertion of Pacemaker Lead into Right Ventricle, Percutaneous Approach (ICD-10-PCS; 2020-03-14)
PROC: 02583ZZ Destruction of Conduction Mechanism, Percutaneous Approach (ICD-10-PCS; 2020-03-14)
PROC: 02H63JZ Insertion of Pacemaker Lead into Right Atrium, Percutaneous Approach (ICD-10-PCS; 2020-03-14)
PROC: 4A023FZ Measurement of Cardiac Rhythm, Percutaneous Approach (ICD-10-PCS; 2020-03-14)
PROC: 4A0234Z Measurement of Cardiac Electrical Activity, Percutaneous Approach (ICD-10-PCS; 2020-03-14)
DX: I48.0 Paroxysmal atrial fibrillation (principal); I48.92 Unspecified atrial flutter; I47.1 Supraventricular tachycardia; I48.3 Typical atrial flutter; I10 Essential (primary) hypertension; E78.00 Pure hypercholesterolemia, unspecified; I25.10 Atherosclerotic heart disease of native coronary artery without angina pectoris; N40.0 Benign prostatic hyperplasia without lower urinary tract symptoms; E78.5 Hyperlipidemia, unspecified; Z96.641 Presence of right artificial hip joint; Z96.653 Presence of artificial knee joint, bilateral; I49.5 Sick sinus syndrome; R09.81 Nasal congestion; I08.1 Rheumatic disorders of both mitral and tricuspid valves; I49.3 Ventricular premature depolarization; R00.1 Bradycardia, unspecified; I95.2 Hypotension due to drugs; T50.905A Adverse effect of unspecified drugs, medicaments and biological substances, initial encounter; Z20.828 Contact with and (suspected) exposure to other viral communicable diseases; Z95.1 Presence of aortocoronary bypass graft; Z79.82 Long term (current) use of aspirin; Z79.899 Other long term (current) drug therapy
CPT/HCPCS: 33208; 36415; 71045; 76942; 78452; 80048; 80053; 82550; 82553; 83735; 83880; 84439; 84443; 84481; 84484; 85025; 85610; 85730; 87635; 92960; 93005; 93010; 93017; 93306; 93462; 93613; 93621; 93622; 93623; 93653; 93655; 93662; 96365; 96366; 96376; A9500; C1732; C1785; C1898; J0690; J1580; J1644; J1650; J2001; J2370; J2704; J3490; J7030; U0003

== ENCOUNTER 2020-10-31 01:13 | Emergency (ER) | payer MEDICARE, OTHER ==
[2020-10-31 02:25] LABS: Anion Gap 13 mmol/L (10-20); BUN (Urea Nitrogen) 22 mg/dL (8.4-25.7); Calc. Creatinine Clearance 0 mL/min (70-130); Calcium 9.3 mg/dL (7.8-10.44); Carbon Dioxide 23 mmol/L (23-31); Chloride 104 mmol/L (98-107); Glucose 107 mg/dL (83-110); Sodium 136 mmol/L (136-145)
[2020-10-31 02:27] LABS: Bacteria/HPF None Seen HPF (None Seen); Bilirubin Negative (Negative); Blood, Urine Trace (Negative); Clarity Clear (Clear); Glucose, Urine (Dipstick) Normal (Negative); Ketone, Urine Negative (Negative); Leukocyte Negative Leu/uL (Negative); Mucous/LPF Rare LPF (<2+); Nitrite Negative (Negative); Protein, Urine (Dipstick) Negative (Neg-Trace); RBC/HPF 0-3 HPF (0-3); Specific Gravity, Urine 1.012 (1.002-1.036); Squamous Epithelial None Seen HPF (0-3); Urobilinogen Normal mg/dL (Less than 2); WBC/HPF None Seen HPF (0-3)
[2020-10-31 02:28] LABS: Sperm/HPF Rare HPF (None Seen)
== END 2020-10-31 03:52 | disposition home or self-care (01) ==
LOC: ERS 01:13
DX: R33.9 Retention of urine, unspecified (principal); R10.30 Lower abdominal pain, unspecified; E78.00 Pure hypercholesterolemia, unspecified; I10 Essential (primary) hypertension; Z79.899 Other long term (current) drug therapy; Z79.01 Long term (current) use of anticoagulants
CPT/HCPCS: 36415; 51702; 80048; 81003; 81015; 87086

== ENCOUNTER 2020-12-04 14:00 | Outpatient (CLI) | payer MEDICARE, OTHER ==
[2020-12-04 16:17] LABS: Bilirubin Neg (Negative); Blood, Urine 10 (Negative); Clarity Clear (Clear); Glucose, Urine (Dipstick) Normal (Negative); Ketone, Urine Negative (Negative); Leukocyte Negative (Negative); Nitrite Negative (Negative); Protein, Urine (Dipstick) Negative (Neg-Trace); Urobilinogen Normal mg/dL (Less than 2)
[2020-12-04 16:22] LABS: Hemoglobin 11.1 g/dL (13.5-17.5); Mean Corpuscular HGB CONC 33.5 g/dL (32.0-36.0); Mean Corpuscular Hemoglobin 29.8 pg (27.0-33.0); Mean Platelet Volume 10.5 fl (7.4-10.4); Platelet Count 145 10x3/uL (150-450); RBC Distribution Width 14.2 % (11.5-14.5); Red Blood Cell (RBC) Count 3.72 10x6/uL (4.32-5.72); White Blood Cell (WBC) Count 4.6 10x3/uL (3.5-10.5)
[2020-12-04 16:33] LABS: Anion Gap 12 mmol/L (10-20); BUN (Urea Nitrogen) 22 mg/dL (8.4-25.7); Calc. Creatinine Clearance 0 mL/min (70-130); Calcium 9.1 mg/dL (7.8-10.44); Carbon Dioxide 25 mmol/L (23-31); Chloride 104 mmol/L (98-107); Glucose 90 mg/dL (83-110); Potassium 4.4 mmol/L (3.5-5.1); Sodium 137 mmol/L (136-145)
[2020-12-04 16:42] LABS: Bacteria/HPF Rare-Few HPF (None Seen); Mucous/LPF Rare LPF (<2+); RBC/HPF 0-3 HPF (0-3); Squamous Epithelial 0-3 HPF (0-3); WBC/HPF None Seen HPF (0-3)
[2020-12-04 17:00] LABS: INR-International Normal Ratio 1.2; PTT 30.2 sec (22.0-33.0); Prothrombin Time 12.9 sec (9.5-12.1)
== END 2020-12-04 14:01 | disposition home or self-care (01) ==
LOC: LABBT 14:00
PROVIDERS: ATTEND Urology
DX: Z01.818 Encounter for other preprocedural examination (principal); N40.1 Benign prostatic hyperplasia with lower urinary tract symptoms; N20.0 Calculus of kidney; N28.1 Cyst of kidney, acquired; R35.1 Nocturia
CPT/HCPCS: 80048; 81001; 85027; 85610; 85730; 87086; 93005; 93010

== ENCOUNTER 2020-12-07 09:11 | Day surgery (SDC) | payer MEDICARE, OTHER ==
[2020-12-06 12:16] VITALS: BMI 23.8
[2020-12-07] MEDS ORDERED: Levofloxacin 500 mg/D5W 100 ml Premix Bag ONE (11:03)
[2020-12-07] MEDS ORDERED: Midazolam HCl 2 mg/2 ml Vial ONE (11:46)
[2020-12-07] MEDS ORDERED: Fentanyl 100 MCG/2 ML VIAL ONE ×2 (11:46→13:48)
[2020-12-07] MEDS ORDERED: B & O ONE (12:03)
[2020-12-07] MEDS ORDERED: ePHEDrine Sulfate 50 MG/10 ML VIAL ONE (12:11)
[2020-12-07] MEDS ORDERED: PROPOFOL 200 MG/20 ML VIAL ONE (12:16)
[2020-12-07] MEDS ORDERED: Hyoscyamine Sulfate SL 0.125 mg Tablet ONE (14:13)
[2020-12-07] MEDS ORDERED: Hyoscyamine Sulfate SL 0.125 mg Tablet SL SCH (14:15)
== END 2020-12-07 15:20 | disposition home or self-care (01) ==
LOC: SDC 09:11
PROVIDERS: ATTEND Urology
PROC: 0T7D8DZ Dilation of Urethra with Intraluminal Device, Via Natural or Artificial Opening Endoscopic (ICD-10-PCS; principal; 2020-12-07)
DX: N40.1 Benign prostatic hyperplasia with lower urinary tract symptoms (principal); N13.8 Other obstructive and reflux uropathy; R33.8 Other retention of urine; R39.12 Poor urinary stream; N28.1 Cyst of kidney, acquired; I10 Essential (primary) hypertension; E78.5 Hyperlipidemia, unspecified; Z79.01 Long term (current) use of anticoagulants; Z79.899 Other long term (current) drug therapy; Z95.0 Presence of cardiac pacemaker; Z95.1 Presence of aortocoronary bypass graft
CPT/HCPCS: C9740; L8699; J1956; J2250; J2704; J3010

== ENCOUNTER 2021-08-04 01:32 | Emergency (ER) | payer MEDICARE, OTHER ==
[2021-08-04 02:35] LABS: #Eosinphils 0.2 thou/uL (0.0-0.7); #Monocytes 0.5 thou/uL (0.11-0.59); #Neutrophils 5.1 thou/uL (1.40-6.50); %Basophils 0.3 % (0.0-1.0); %Eosinophils 2.5 % (0.0-10.0); %Lymphocytes 14.4 % (21.0-51.0); Hemoglobin 12.3 g/dL (14.0-18.0); Mean Corpuscular HGB CONC 36.1 g/dL (32.0-36.0); Mean Corpuscular Hemoglobin 33.6 pg (27.0-31.0); Mean Corpuscular Volume 93.3 fL (78.0-98.0); Platelet Count 129 thou/uL (130-400); RBC Distribution Width 12.9 % (11.5-14.5); Red Blood Cell (RBC) Count 3.65 mill/uL (4.70-6.10); White Blood Cell (WBC) Count 6.8 thou/uL (4.8-10.8)
[2021-08-04 02:57] LABS: Bacteria/HPF None Seen HPF (None Seen); Bilirubin Negative (Negative); Blood, Urine Trace (Negative); Clarity Clear (Clear); Glucose, Urine (Dipstick) Normal (Negative); Ketone, Urine Negative (Negative); Leukocyte Negative Leu/uL (Negative); Mucous/LPF Rare LPF (<2+); Nitrite Negative (Negative); Protein, Urine (Dipstick) Negative (Neg-Trace); RBC/HPF 0-3 HPF (0-3); Specific Gravity, Urine 1.024 (1.002-1.036); Squamous Epithelial None Seen HPF (0-3); Urobilinogen Normal mg/dL (Less than 2); WBC/HPF 0-3 HPF (0-3)
[2021-08-04 02:58] LABS: Albumin 4.1 g/dL (3.4-4.8); Anion Gap 14 mmol/L (10-20); BUN (Urea Nitrogen) 31 mg/dL (8.4-25.7); Bilirubin, Total 0.8 mg/dL (0.2-1.2); Calc. Creatinine Clearance 0 mL/min (70-130); Calcium 9.1 mg/dL (7.8-10.44); Carbon Dioxide 21 mmol/L (23-31); Chloride 110 mmol/L (98-107); Globulin 2.7 g/dL (2.4-3.5); Glucose 106 mg/dL (83-110); Potassium 4.2 mmol/L (3.5-5.1); Protein, Total 6.8 g/dL (5.8-8.1); Sodium 141 mmol/L (136-145)
[2021-08-04 02:59] LABS: ALT (SGPT) 37 U/L (8-55); AST (SGOT) 30 U/L (5-34); Alkaline Phosphatase 59 U/L (40-110)
== END 2021-08-04 03:47 | disposition home or self-care (01) ==
LOC: ERS 01:32
DX: K59.00 Constipation, unspecified (principal); R33.9 Retention of urine, unspecified; I10 Essential (primary) hypertension; E78.00 Pure hypercholesterolemia, unspecified; I48.91 Unspecified atrial fibrillation; Z87.442 Personal history of urinary calculi; Z79.01 Long term (current) use of anticoagulants; Z79.899 Other long term (current) drug therapy
CPT/HCPCS: 36415; 80053; 81003; 81015; 85025; 87086; 99283

== ENCOUNTER 2021-12-24 07:53 | Outpatient (CLI) | payer MEDICARE, OTHER | END 2021-12-24 07:54 | disposition home or self-care (01) | LOC: BICULT 07:53 | PROVIDERS: ATTEND Internal Medicine | DX: R74.01 Elevation of levels of liver transaminase levels (principal) | CPT/HCPCS: 76705 ==

== ENCOUNTER 2022-05-16 12:26 | Inpatient (IN) | payer MEDICARE, OTHER ==
[2022-05-16] MEDS ORDERED: Furosemide 40 MG/4 ML VIAL ONE (14:19)
[2022-05-16] MEDS ORDERED: Aspirin Chewable 81 MG TAB ONE (14:19)
[2022-05-16 14:53] LABS: CKMB 2.7 ng/mL (0-6.6)
[2022-05-16 17:30] LABS: Troponin I 0.087 ng/mL (< 0.028)
[2022-05-16 19:35] VITALS: BMI 23.9
[2022-05-16] MEDS: Dronedarone HCl 400 MG TAB PO SCH (20:28)
[2022-05-16] MEDS: Atorvastatin Calcium 40 MG TAB PO SCH (20:28)
[2022-05-16] MEDS: Apixaban 5 MG TAB PO SCH (20:28)
[2022-05-16 20:42] LABS: Troponin I 0.084 ng/mL (< 0.028)
[2022-05-16] MEDS: Icosapent Ethyl 1 GM CAPSULE PO SCH (20:51)
[2022-05-17 05:02] LABS: #Eosinphils 0.2 thou/uL (0.0-0.7); #Lymphocytes 1.2 thou/uL (1.20-3.40); #Monocytes 0.5 thou/uL (0.11-0.59); #Neutrophils 3.4 thou/uL (1.40-6.50); %Basophils 0.4 % (0.0-1.0); %Eosinophils 3.4 % (0.0-10.0); %Lymphocytes 23.2 % (21.0-51.0); Hemoglobin 10.7 g/dL (14.0-18.0); Mean Corpuscular HGB CONC 32.5 g/dL (32.0-36.0); Mean Corpuscular Hemoglobin 30.7 pg (27.0-31.0); Mean Corpuscular Volume 94.3 fl (78.0-98.0); Mean Platelet Volume 8.3 fL (7.4-10.4); Platelet Count 128 10x3/uL (130-400); RBC Distribution Width 13.5 % (11.5-14.5); Red Blood Cell (RBC) Count 3.48 mill/uL (4.70-6.10); White Blood Cell (WBC) Count 5.3 10x3/uL (4.8-10.8)
[2022-05-17 05:22] LABS: Anion Gap 13 mmol/L (10-20); Calc. Creatinine Clearance 39 mL/min (70-130); Calcium 8.4 mg/dL (7.8-10.44); Carbon Dioxide 24 mmol/L (23-31); Chloride 103 mmol/L (98-107); Estimated GFR 53; Glucose 83 mg/dL (83-110); Potassium 3.8 mmol/L (3.5-5.1); Sodium 136 mmol/L (136-145)
[2022-05-17] MEDS: Furosemide 40 MG/4 ML VIAL SLOW IVP SCH ×2 (06:25→13:17)
[2022-05-17 08:22] LABS: BUN (Urea Nitrogen) 32 mg/dL (8.4-25.7)
[2022-05-17] MEDS: Dronedarone HCl 400 MG TAB PO SCH ×2 (08:30→16:54)
[2022-05-17] MEDS: Tamsulosin HCl 0.4 MG CAP PO SCH (08:30)
[2022-05-17] MEDS: Apixaban 5 MG TAB PO SCH ×2 (08:30→20:16)
[2022-05-17] MEDS: Icosapent Ethyl 1 GM CAPSULE PO SCH ×2 (08:30→20:16)
[2022-05-17] MEDS ORDERED: Potassium Chloride 20 MEQ TAB PO SCH (09:15)
[2022-05-17 09:33] LABS: Magnesium 1.5 mg/dL (1.6-2.6)
[2022-05-17] MEDS ORDERED: Empagliflozin 10 MG TAB PO SCH (14:15)
[2022-05-17] MEDS: Potassium Chloride 20 MEQ TAB PO SCH (16:54)
[2022-05-17] MEDS ORDERED: Electrolyte Replacement Protocol 1 EACH FS SCH (17:45)
[2022-05-17] MEDS ORDERED: Senokot 8.6 MG TAB PO PRN (17:45)
[2022-05-17] MEDS ORDERED: Magnesium 2 GM/50 ML(in water) 2 GM in Premix Bag 1 BAG IVPB SCH (17:45)
[2022-05-17] MEDS ORDERED: Magnesium Sulfate In Water 4 GM in Premix Bag 1 BAG IVPB SCH (17:45)
[2022-05-17] MEDS: Polyethylene Glycol 3350 17 GM Packet PO SCH (20:16)
[2022-05-17] MEDS: Atorvastatin Calcium 40 MG TAB PO SCH (20:16)
[2022-05-18 05:38] LABS: ALT (SGPT) 47 U/L (8-55); AST (SGOT) 32 U/L (5-34); Albumin 3.5 g/dL (3.4-4.8); Alkaline Phosphatase 104 U/L (40-110); Anion Gap 17 mmol/L (10-20); BUN (Urea Nitrogen) 32 mg/dL (8.4-25.7); Bilirubin, Total 1.9 mg/dL (0.2-1.2); Calc. Creatinine Clearance 33 mL/min (70-130); Calcium 8.8 mg/dL (7.8-10.44); Carbon Dioxide 27 mmol/L (23-31); Chloride 98 mmol/L (98-107); Estimated GFR 44; Globulin 2.5 g/dL (2.4-3.5); Glucose 88 mg/dL (83-110); Magnesium 1.9 mg/dL (1.6-2.6); Sodium 138 mmol/L (136-145)
[2022-05-18] MEDS: Furosemide 40 MG/4 ML VIAL SLOW IVP SCH (06:21)
[2022-05-18] MEDS ORDERED: Magnesium 2 GM/50 ML(in water) 2 GM in Premix Bag 1 BAG IVPB SCH (08:00)
[2022-05-18] MEDS: Apixaban 5 MG TAB PO SCH ×2 (08:12→20:55)
[2022-05-18] MEDS: Empagliflozin 10 MG TAB PO SCH (08:12)
[2022-05-18] MEDS: Icosapent Ethyl 1 GM CAPSULE PO SCH ×2 (08:13→20:55)
[2022-05-18] MEDS: Dronedarone HCl 400 MG TAB PO SCH ×2 (08:13→16:05)
[2022-05-18] MEDS: Potassium Chloride 20 MEQ TAB PO SCH ×2 (08:15→16:05)
[2022-05-18] MEDS: Tamsulosin HCl 0.4 MG CAP PO SCH (08:16)
[2022-05-18] MEDS: Polyethylene Glycol 3350 17 GM Packet PO SCH (20:55)
[2022-05-18] MEDS: Atorvastatin Calcium 40 MG TAB PO SCH (20:55)
[2022-05-19 06:34] LABS: #Eosinphils 0.2 thou/uL (0.0-0.7); #Lymphocytes 1.2 thou/uL (1.20-3.40); #Monocytes 0.6 thou/uL (0.11-0.59); %Basophils 0.1 % (0.0-1.0); %Eosinophils 3.1 % (0.0-10.0); %Lymphocytes 20.1 % (21.0-51.0); %Monocytes 10.2 % (0.0-10.0); %Neutrophils 66.5 % (42.0-75.0); Hemoglobin 11.7 g/dL (14.0-18.0); Mean Corpuscular HGB CONC 32.8 g/dL (32.0-36.0); Mean Corpuscular Volume 94.5 fl (78.0-98.0); Mean Platelet Volume 8.1 fL (7.4-10.4); Platelet Count 141 10x3/uL (130-400); RBC Distribution Width 13.8 % (11.5-14.5); Red Blood Cell (RBC) Count 3.78 mill/uL (4.70-6.10)
[2022-05-19 07:01] LABS: ALT (SGPT) 40 U/L (8-55); AST (SGOT) 31 U/L (5-34); Albumin 3.7 g/dL (3.4-4.8); Alkaline Phosphatase 100 U/L (40-110); Anion Gap 14 mmol/L (10-20); BUN (Urea Nitrogen) 31 mg/dL (8.4-25.7); Bilirubin, Total 1.9 mg/dL (0.2-1.2); Calc. Creatinine Clearance 34 mL/min (70-130); Calcium 8.7 mg/dL (7.8-10.44); Carbon Dioxide 26 mmol/L (23-31); Chloride 98 mmol/L (98-107); Estimated GFR 50; Globulin 2.4 g/dL (2.4-3.5); Glucose 84 mg/dL (83-110); Magnesium 2.1 mg/dL (1.6-2.6); Potassium 4.3 mmol/L (3.5-5.1); Protein, Total 6.1 g/dL (5.8-8.1); Sodium 134 mmol/L (136-145)
[2022-05-19] MEDS: Apixaban 5 MG TAB PO SCH ×2 (07:40→22:09)
[2022-05-19] MEDS: Dronedarone HCl 400 MG TAB PO SCH (07:40)
[2022-05-19] MEDS: Potassium Chloride 20 MEQ TAB PO SCH ×2 (08:38→18:17)
[2022-05-19] MEDS: Icosapent Ethyl 1 GM CAPSULE PO SCH ×2 (08:39→22:10)
[2022-05-19] MEDS: Empagliflozin 10 MG TAB PO SCH (08:44)
[2022-05-19] MEDS ORDERED: Furosemide 40 MG TAB PO SCH (09:00)
[2022-05-19] MEDS ORDERED: Furosemide 40 MG/4 ML VIAL SLOW IVP SCH (09:00)
[2022-05-19] MEDS: Atorvastatin Calcium 40 MG TAB PO SCH (22:10)
[2022-05-19] MEDS: Polyethylene Glycol 3350 17 GM Packet PO SCH (22:10)
[2022-05-20 05:53] LABS: Anion Gap 14 mmol/L (10-20); BUN (Urea Nitrogen) 34 mg/dL (8.4-25.7); Calc. Creatinine Clearance 36 mL/min (70-130); Calcium 9.1 mg/dL (7.8-10.44); Carbon Dioxide 25 mmol/L (23-31); Chloride 100 mmol/L (98-107); Estimated GFR 53; Glucose 92 mg/dL (83-110); Potassium 5.1 mmol/L (3.5-5.1); Sodium 134 mmol/L (136-145)
[2022-05-20] MEDS: Potassium Chloride 20 MEQ TAB PO SCH ×2 (07:31→17:40)
[2022-05-20] MEDS ORDERED: Magnesium 2 GM/50 ML(in water) 2 GM in Premix Bag 1 BAG IVPB SCH (08:00)
[2022-05-20] MEDS: Empagliflozin 10 MG TAB PO SCH (08:50)
[2022-05-20] MEDS: Apixaban 5 MG TAB PO SCH ×2 (08:50→21:38)
[2022-05-20] MEDS: Icosapent Ethyl 1 GM CAPSULE PO SCH ×2 (08:51→21:38)
[2022-05-20] MEDS: Furosemide 20 MG TAB PO SCH (08:52)
[2022-05-20] MEDS: Atorvastatin Calcium 40 MG TAB PO SCH (21:38)
[2022-05-20] MEDS: Polyethylene Glycol 3350 17 GM Packet PO SCH (21:39)
[2022-05-21 05:20] LABS: #Eosinphils 0.2 thou/uL (0.0-0.7); #Lymphocytes 1.1 thou/uL (1.20-3.40); #Monocytes 0.9 thou/uL (0.11-0.59); #Neutrophils 5.2 thou/uL (1.40-6.50); %Basophils 0.1 % (0.0-1.0); %Eosinophils 2.7 % (0.0-10.0); %Lymphocytes 15.1 % (21.0-51.0); %Monocytes 12.1 % (0.0-10.0); %Neutrophils 70.1 % (42.0-75.0); Hemoglobin 12.6 g/dL (14.0-18.0); Mean Corpuscular HGB CONC 33.4 g/dL (32.0-36.0); Mean Corpuscular Hemoglobin 31.3 pg (27.0-31.0); Mean Corpuscular Volume 93.6 fl (78.0-98.0); Mean Platelet Volume 8.3 fL (7.4-10.4); Platelet Count 164 10x3/uL (130-400); RBC Distribution Width 13.9 % (11.5-14.5); Red Blood Cell (RBC) Count 4.03 mill/uL (4.70-6.10); White Blood Cell (WBC) Count 7.4 10x3/uL (4.8-10.8)
[2022-05-21 05:47] LABS: ALT (SGPT) 35 U/L (8-55); AST (SGOT) 31 U/L (5-34); Albumin 3.8 g/dL (3.4-4.8); Alkaline Phosphatase 108 U/L (40-110); Anion Gap 15 mmol/L (10-20); BUN (Urea Nitrogen) 26 mg/dL (8.4-25.7); Bilirubin, Total 2.5 mg/dL (0.2-1.2); Calc. Creatinine Clearance 42 mL/min (70-130); Calcium 9.1 mg/dL (7.8-10.44); Carbon Dioxide 23 mmol/L (23-31); Chloride 99 mmol/L (98-107); Estimated GFR 65; Glucose 91 mg/dL (83-110); Magnesium 2.2 mg/dL (1.6-2.6); Potassium 4.2 mmol/L (3.5-5.1); Protein, Total 6.8 g/dL (5.8-8.1); Sodium 133 mmol/L (136-145)
[2022-05-21] MEDS: Potassium Chloride 20 MEQ TAB PO SCH ×2 (09:19→19:50)
[2022-05-21] MEDS: Empagliflozin 10 MG TAB PO SCH (09:20)
[2022-05-21] MEDS: Apixaban 5 MG TAB PO SCH ×2 (09:20→20:47)
[2022-05-21] MEDS: Furosemide 20 MG TAB PO SCH (09:21)
[2022-05-21] MEDS ORDERED: Heparin 10,000 UNITS/ 10 ML VIAL ONE (12:00)
[2022-05-21] MEDS ORDERED: Protamine Sulfate 50 MG/5 ML VIAL ONE (12:00)
[2022-05-21] MEDS ORDERED: FENTANYL 50 MCG/ML 1 ML VIAL ONE (12:58)
[2022-05-21] MEDS ORDERED: PROPOFOL 200 MG/20 ML VIAL ONE (13:12)
[2022-05-21] MEDS ORDERED: Ondansetron PF 4 MG/2 ML Vial ONE (13:12)
[2022-05-21] MEDS ORDERED: Lidocaine 1% PF 5 ML VIAL ONE (13:12)
[2022-05-21] MEDS ORDERED: Rocuronium Bromide 10 MG/ML (10ML VIAL) ONE (13:12)
[2022-05-21] MEDS ORDERED: PHENYLEPHRINE-NS 100 MCG/ML 10 ML SYRINGE ONE (13:12)
[2022-05-21] MEDS ORDERED: Dexamethasone 20 MG/5 ML VIAL ONE (13:12)
[2022-05-21] MEDS ORDERED: ePHEDrine 50 MG/ML VIAL ONE (13:12)
[2022-05-21] MEDS ORDERED: SUGAMMADEX SODIUM 200 MG/2 ML VIAL ONE (14:47)
[2022-05-21] MEDS ORDERED: Promethazine HCl 25 MG/ML VIAL IM PRN (15:22)
[2022-05-21] MEDS ORDERED: Promethazine HCl 25 MG/ML VIAL IVPB PRN (15:22)
[2022-05-21] MEDS ORDERED: Ondansetron HCl/PF 4 MG/2 ML Vial IVP PRN (15:22)
[2022-05-21] MEDS ORDERED: Furosemide 20 MG TAB PO PRN (16:01)
[2022-05-21] MEDS: Icosapent Ethyl 1 GM CAPSULE PO SCH ×2 (17:34→21:00)
[2022-05-21] MEDS: Polyethylene Glycol 3350 17 GM Packet PO SCH (20:47)
[2022-05-21] MEDS: Atorvastatin Calcium 40 MG TAB PO SCH (20:50)
[2022-05-22 05:46] LABS: #Lymphocytes 0.5 thou/uL (1.20-3.40); #Monocytes 0.4 thou/uL (0.11-0.59); %Eosinophils 0.1 % (0.0-10.0); %Lymphocytes 8.3 % (21.0-51.0); %Monocytes 6.6 % (0.0-10.0); Hemoglobin 11.8 g/dL (14.0-18.0); Mean Corpuscular HGB CONC 33.7 g/dL (32.0-36.0); Mean Corpuscular Hemoglobin 31.9 pg (27.0-31.0); Mean Corpuscular Volume 94.7 fl (78.0-98.0); Mean Platelet Volume 7.8 fL (7.4-10.4); Platelet Count 154 10x3/uL (130-400); RBC Distribution Width 13.8 % (11.5-14.5); Red Blood Cell (RBC) Count 3.69 mill/uL (4.70-6.10); White Blood Cell (WBC) Count 5.9 10x3/uL (4.8-10.8)
[2022-05-22 06:01] LABS: Anion Gap 15 mmol/L (10-20); BUN (Urea Nitrogen) 31 mg/dL (8.4-25.7); Calc. Creatinine Clearance 42 mL/min (70-130); Calcium 8.6 mg/dL (7.8-10.44); Carbon Dioxide 20 mmol/L (23-31); Chloride 102 mmol/L (98-107); Estimated GFR 66; Glucose 109 mg/dL (83-110); Potassium 5.2 mmol/L (3.5-5.1); Sodium 132 mmol/L (136-145)
[2022-05-22 09:37] LABS: Anion Gap 17 mmol/L (10-20); BUN (Urea Nitrogen) 34 mg/dL (8.4-25.7); Calc. Creatinine Clearance 37 mL/min (70-130); Calcium 9.2 mg/dL (7.8-10.44); Carbon Dioxide 20 mmol/L (23-31); Chloride 100 mmol/L (98-107); Estimated GFR 57; Glucose 144 mg/dL (83-110); Potassium 4.7 mmol/L (3.5-5.1); Sodium 132 mmol/L (136-145)
[2022-05-22] MEDS: Apixaban 5 MG TAB PO SCH (09:40)
[2022-05-22] MEDS: Furosemide 20 MG TAB PO SCH (09:40)
[2022-05-22] MEDS: Empagliflozin 10 MG TAB PO SCH (09:40)
[2022-05-22] MEDS: Potassium Chloride 20 MEQ TAB PO SCH (09:41)
[2022-05-22] MEDS: Icosapent Ethyl 1 GM CAPSULE PO SCH (09:41)
[2022-05-22 11:39] VITALS: TEMP 97.5
[2022-05-22 13:29] VITALS: BP 148/71
== END 2022-05-22 13:02 | disposition home or self-care (01) | DRG 273 ==
LOC: ERS 12:26 → ERHOLD 15:57 → 2SW 18:48
PROVIDERS: ADMIT Hospitalist; ATTEND Internal Medicine
PROC: 02583ZZ Destruction of Conduction Mechanism, Percutaneous Approach (ICD-10-PCS; principal; 2022-05-21)
PROC: 02K83ZZ Map Conduction Mechanism, Percutaneous Approach (ICD-10-PCS; 2022-05-21)
DX: I13.0 Hypertensive heart and chronic kidney disease with heart failure and stage 1 through stage 4 chronic kidney disease, or unspecified chronic kidney disease (principal); I50.33 Acute on chronic diastolic (congestive) heart failure; N17.9 Acute kidney failure, unspecified; I48.19 Other persistent atrial fibrillation; I47.20 Ventricular tachycardia, unspecified; E87.1 Hypo-osmolality and hyponatremia; E78.00 Pure hypercholesterolemia, unspecified; N40.0 Benign prostatic hyperplasia without lower urinary tract symptoms; Z96.641 Presence of right artificial hip joint; Z96.653 Presence of artificial knee joint, bilateral; I25.10 Atherosclerotic heart disease of native coronary artery without angina pectoris; N18.2 Chronic kidney disease, stage 2 (mild); E83.42 Hypomagnesemia; D63.1 Anemia in chronic kidney disease; E78.5 Hyperlipidemia, unspecified; I35.0 Nonrheumatic aortic (valve) stenosis; I07.1 Rheumatic tricuspid insufficiency; Z98.890 Other specified postprocedural states; Z95.0 Presence of cardiac pacemaker; Z95.1 Presence of aortocoronary bypass graft; Z79.01 Long term (current) use of anticoagulants; Z79.899 Other long term (current) drug therapy
CPT/HCPCS: 36415; 71046; 76936; 80048; 80053; 82553; 83735; 83880; 84484; 85025; 85347; 93005; 93306; 93656; 93798; 96374; C1732; C1759; C1760; C1769; C1884; C1894; J1100; J1644; J1940; J2405; J2704; J2720; J3010; J3475; J3490

== ENCOUNTER 2022-06-20 11:11 | Outpatient (CLI) | payer MEDICARE, OTHER ==
[2022-06-20 12:32] LABS: INR-International Normal Ratio 1.2; PTT 32.3 sec (22.0-33.0); Prothrombin Time 12.9 sec (9.5-12.1)
[2022-06-20 12:33] LABS: Anion Gap 16 mmol/L (10-20); BUN (Urea Nitrogen) 34 mg/dL (8.4-25.7); Calc. Creatinine Clearance 0 mL/min (70-130); Calcium 9.5 mg/dL (7.8-10.44); Carbon Dioxide 26 mmol/L (23-31); Chloride 102 mmol/L (98-107); Estimated GFR 60; Glucose 99 mg/dL (83-110); Potassium 4.2 mmol/L (3.5-5.1); Sodium 140 mmol/L (136-145)
== END 2022-06-20 11:12 | disposition home or self-care (01) ==
LOC: LABBT 11:11
PROVIDERS: ATTEND Internal Medicine Cardiovascular Disease
DX: Z01.818 Encounter for other preprocedural examination (principal); I48.0 Paroxysmal atrial fibrillation
CPT/HCPCS: 80048; 85610; 85730; 93005; 93010

== ENCOUNTER 2022-06-23 05:55 | Day surgery (SDC) | payer MEDICARE, OTHER ==
[2022-06-20 09:40] VITALS: BMI 21.7
[2022-06-23] MEDS ORDERED: PROPOFOL 20 ML ONE (07:36)
== END 2022-06-23 08:45 | disposition home or self-care (01) ==
LOC: SDC 05:55
PROVIDERS: ATTEND Internal Medicine Cardiovascular Disease
PROC: 5A2204Z Restoration of Cardiac Rhythm, Single (ICD-10-PCS; principal; 2022-06-23)
DX: I48.0 Paroxysmal atrial fibrillation (principal); I35.0 Nonrheumatic aortic (valve) stenosis; I10 Essential (primary) hypertension; E78.2 Mixed hyperlipidemia; I70.90 Unspecified atherosclerosis; Z79.01 Long term (current) use of anticoagulants; Z79.84 Long term (current) use of oral hypoglycemic drugs; Z79.899 Other long term (current) drug therapy; Z95.0 Presence of cardiac pacemaker; Z95.1 Presence of aortocoronary bypass graft
CPT/HCPCS: 92960; 93005; 93010; J2704

== ENCOUNTER 2022-06-24 16:03 | Inpatient (IN) | payer MEDICARE, OTHER ==
[2022-06-24 17:28] LABS: Bilirubin Negative (Negative); Blood, Urine Negative (Negative); Clarity Turbid (Clear); Glucose, Urine (Dipstick) Greater than 1000 mg/dL (Negative); Ketone, Urine Negative (Negative); Leukocyte Negative Leu/uL (Negative); Nitrite Negative (Negative); Protein, Urine (Dipstick) 70 mg/dL (Neg-Trace); RBC/HPF 0-3 HPF (0-3); Specific Gravity, Urine 1.017 (1.002-1.036); Squamous Epithelial None Seen HPF (0-3); Urobilinogen Normal mg/dL (Less than 2); WBC/HPF 0-3 HPF (0-3); pH, Urine 5.5 (5.0-9.0)
[2022-06-24 17:30] LABS: Bacteria/HPF 1+ HPF (None Seen)
[2022-06-24 17:47] LABS: #Eosinphils 0.1 thou/uL (0.0-0.7); #Lymphocytes 0.8 thou/uL (1.20-3.40); #Monocytes 0.5 thou/uL (0.11-0.59); %Basophils 0.1 % (0.0-1.0); %Eosinophils 1.4 % (0.0-10.0); %Lymphocytes 12.5 % (21.0-51.0); %Monocytes 7.4 % (0.0-10.0); %Neutrophils 78.7 % (42.0-75.0); Hemoglobin 12.6 g/dL (14.0-18.0); Mean Corpuscular HGB CONC 33.3 g/dL (32.0-36.0); Mean Corpuscular Hemoglobin 31.8 pg (27.0-31.0); Mean Corpuscular Volume 95.6 fl (78.0-98.0); Mean Platelet Volume 9.6 fL (7.4-10.4); Platelet Count 116 10x3/uL (130-400); RBC Distribution Width 14.8 % (11.5-14.5); Red Blood Cell (RBC) Count 3.98 mill/uL (4.70-6.10); White Blood Cell (WBC) Count 6.3 10x3/uL (4.8-10.8)
[2022-06-24 18:09] LABS: ALT (SGPT) 73 U/L (8-55); AST (SGOT) 49 U/L (5-34); Albumin 4.1 g/dL (3.4-4.8); Alkaline Phosphatase 110 U/L (40-110); Anion Gap 14 mmol/L (10-20); BUN (Urea Nitrogen) 33 mg/dL (8.4-25.7); Bilirubin, Total 1.1 mg/dL (0.2-1.2); Calc. Creatinine Clearance 0 mL/min (70-130); Calcium 9.5 mg/dL (7.8-10.44); Carbon Dioxide 25 mmol/L (23-31); Chloride 104 mmol/L (98-107); Estimated GFR 42; Globulin 2.9 g/dL (2.4-3.5); Glucose 114 mg/dL (83-110); Potassium 4.8 mmol/L (3.5-5.1); Sodium 138 mmol/L (136-145)
[2022-06-24 18:17] LABS: Anisocytosis SLIGHT = 6-15 cells (100X) (0-5/hpf); MDiff Complete? YES; Platelet Morphology Comment Appears Decreased; Polychromasia SLIGHT = 2-3 cells (100X) (0-2/hpf)
[2022-06-24 18:38] LABS: CKMB 1.7 ng/mL (0-6.6)
[2022-06-24] MEDS ORDERED: Aspirin 325 MG TAB ONE (18:47)
[2022-06-24] MEDS: Apixaban 5 MG TAB PO SCH (21:16)
[2022-06-24] MEDS: Atorvastatin Calcium 40 MG TAB PO SCH (21:16)
[2022-06-24 21:23] LABS: Troponin I 0.121 ng/mL (< 0.028)
[2022-06-24 21:54] VITALS: BMI 22.4
[2022-06-24 22:06] LABS: Phosphorus 4.7 mg/dL (2.3-4.7)
[2022-06-24 22:08] LABS: Magnesium 2.1 mg/dL (1.6-2.6)
[2022-06-25 00:21] LABS: Troponin I 0.125 ng/mL (< 0.028)
[2022-06-25 05:30] LABS: #Eosinphils 0.1 thou/uL (0.0-0.7); #Lymphocytes 1.2 thou/uL (1.20-3.40); #Monocytes 0.5 thou/uL (0.11-0.59); %Basophils 0.3 % (0.0-1.0); %Lymphocytes 24.8 % (21.0-51.0); %Monocytes 10.7 % (0.0-10.0); %Neutrophils 61.2 % (42.0-75.0); Hemoglobin 10.4 g/dL (14.0-18.0); Mean Corpuscular HGB CONC 33.9 g/dL (32.0-36.0); Mean Corpuscular Hemoglobin 32.4 pg (27.0-31.0); Mean Corpuscular Volume 95.5 fl (78.0-98.0); Mean Platelet Volume 9.8 fL (7.4-10.4); Platelet Count 94 10x3/uL (130-400); RBC Distribution Width 14.8 % (11.5-14.5); White Blood Cell (WBC) Count 4.8 10x3/uL (4.8-10.8)
[2022-06-25 05:46] LABS: Anion Gap 14 mmol/L (10-20); BUN (Urea Nitrogen) 36 mg/dL (8.4-25.7); Calc. Creatinine Clearance 34 mL/min (70-130); Calcium 8.8 mg/dL (7.8-10.44); Carbon Dioxide 23 mmol/L (23-31); Chloride 106 mmol/L (98-107); Estimated GFR 48; Glucose 89 mg/dL (83-110); Phosphorus 3.9 mg/dL (2.3-4.7); Potassium 4.2 mmol/L (3.5-5.1); Sodium 139 mmol/L (136-145)
[2022-06-25] MEDS: Icosapent Ethyl 1 GM CAPSULE PO SCH ×2 (08:23→16:35)
[2022-06-25] MEDS: Apixaban 5 MG TAB PO SCH ×2 (08:23→20:10)
[2022-06-25] MEDS: Empagliflozin 10 MG TAB PO SCH (08:23)
[2022-06-25] MEDS ORDERED: Empagliflozin 10 MG TAB PO SCH (09:00)
[2022-06-25 16:18] LABS: ALT (SGPT) 62 U/L (8-55); AST (SGOT) 40 U/L (5-34); Albumin 3.8 g/dL (3.4-4.8); Alkaline Phosphatase 112 U/L (40-110); Bilirubin, Direct 0.5 mg/dL (0.1-0.3); Bilirubin, Total 1.2 mg/dL (0.2-1.2); Protein, Total 6.7 g/dL (5.8-8.1)
[2022-06-25] MEDS: Atorvastatin Calcium 40 MG TAB PO SCH (20:10)
[2022-06-26 05:56] LABS: ALT (SGPT) 53 U/L (8-55); AST (SGOT) 35 U/L (5-34); Albumin 3.6 g/dL (3.4-4.8); Alkaline Phosphatase 99 U/L (40-110); Anion Gap 12 mmol/L (10-20); BUN (Urea Nitrogen) 34 mg/dL (8.4-25.7); Bilirubin, Total 1.3 mg/dL (0.2-1.2); Calc. Creatinine Clearance 42 mL/min (70-130); Calcium 8.9 mg/dL (7.8-10.44); Carbon Dioxide 24 mmol/L (23-31); Chloride 106 mmol/L (98-107); Estimated GFR 61; Globulin 2.4 g/dL (2.4-3.5); Glucose 91 mg/dL (83-110); Potassium 4.3 mmol/L (3.5-5.1); Sodium 138 mmol/L (136-145)
[2022-06-26 07:45] LABS: Hemoglobin 10.9 g/dL (14.0-18.0); Mean Corpuscular HGB CONC 33.3 g/dL (32.0-36.0); Mean Corpuscular Hemoglobin 31.7 pg (27.0-31.0); Mean Corpuscular Volume 95.4 fl (78.0-98.0); Mean Platelet Volume 9.7 fL (7.4-10.4); Platelet Count 95 10x3/uL (130-400); RBC Distribution Width 14.7 % (11.5-14.5); Red Blood Cell (RBC) Count 3.45 mill/uL (4.70-6.10); White Blood Cell (WBC) Count 4.7 10x3/uL (4.8-10.8)
[2022-06-26] MEDS: Icosapent Ethyl 1 GM CAPSULE PO SCH (08:47)
[2022-06-26] MEDS: Apixaban 5 MG TAB PO SCH (08:48)
[2022-06-26] MEDS: Empagliflozin 10 MG TAB PO SCH (08:48)
[2022-06-26] MEDS ORDERED: Amiodarone 200 MG TAB PO SCH (09:00)
[2022-06-26 12:00] VITALS: BP 110/61; TEMP 97.9
== END 2022-06-26 14:21 | disposition home or self-care (01) | DRG 948 ==
LOC: SUATTDRO 16:03 → ERS 16:03 → 2SW 18:39 → OBSVTOIN 06-25 15:19
PROVIDERS: ADMIT Internal Medicine; ATTEND Internal Medicine
PROC: 5A2204Z Restoration of Cardiac Rhythm, Single (ICD-10-PCS; 2022-06-23)
PROC: 4B02XSZ Measurement of Cardiac Pacemaker, External Approach (ICD-10-PCS; principal; 2022-06-25)
DX: R53.1 Weakness (principal); I13.0 Hypertensive heart and chronic kidney disease with heart failure and stage 1 through stage 4 chronic kidney disease, or unspecified chronic kidney disease; N17.9 Acute kidney failure, unspecified; I48.19 Other persistent atrial fibrillation; I24.8 Other forms of acute ischemic heart disease; I50.32 Chronic diastolic (congestive) heart failure; R42 Dizziness and giddiness; T46.2X5A Adverse effect of other antidysrhythmic drugs, initial encounter; Z20.822 Contact with and (suspected) exposure to COVID-19; N18.2 Chronic kidney disease, stage 2 (mild); R89.4 Abnormal immunological findings in specimens from other organs, systems and tissues; I49.5 Sick sinus syndrome; I25.10 Atherosclerotic heart disease of native coronary artery without angina pectoris; I35.0 Nonrheumatic aortic (valve) stenosis; E78.5 Hyperlipidemia, unspecified; N40.0 Benign prostatic hyperplasia without lower urinary tract symptoms; Z96.653 Presence of artificial knee joint, bilateral; Z96.641 Presence of right artificial hip joint; D69.6 Thrombocytopenia, unspecified; Z95.1 Presence of aortocoronary bypass graft; Z95.0 Presence of cardiac pacemaker; Z98.890 Other specified postprocedural states; Z79.01 Long term (current) use of anticoagulants; Z79.899 Other long term (current) drug therapy; I48.0 Paroxysmal atrial fibrillation; E78.2 Mixed hyperlipidemia; I70.90 Unspecified atherosclerosis; Z79.84 Long term (current) use of oral hypoglycemic drugs
CPT/HCPCS: 36415; 36416; 71045; 80048; 80053; 80076; 81003; 81015; 82553; 83605; 83735; 83880; 84100; 84484; 85025; 85027; 92960; 93005; G0378; J2704; U0003; U0005

== ENCOUNTER 2022-07-07 08:13 | Outpatient (CLI) | payer MEDICARE, OTHER ==
[2022-07-07 09:02] LABS: INR-International Normal Ratio 1.1; PTT 31.9 sec (22.0-33.0); Prothrombin Time 12.3 sec (9.5-12.1)
[2022-07-07 09:06] LABS: Anion Gap 13 mmol/L (10-20); BUN (Urea Nitrogen) 27 mg/dL (8.4-25.7); Calc. Creatinine Clearance 0 mL/min (70-130); Calcium 9.3 mg/dL (7.8-10.44); Carbon Dioxide 24 mmol/L (23-31); Chloride 105 mmol/L (98-107); Estimated GFR 71; Glucose 96 mg/dL (83-110); Potassium 4.1 mmol/L (3.5-5.1); Sodium 138 mmol/L (136-145)
== END 2022-07-07 08:14 | disposition home or self-care (01) ==
LOC: LABBT 08:13
PROVIDERS: ATTEND Internal Medicine Cardiovascular Disease
DX: Z01.812 Encounter for preprocedural laboratory examination (principal); I48.0 Paroxysmal atrial fibrillation
CPT/HCPCS: 80048; 85610; 85730

== ENCOUNTER 2022-07-08 08:52 | Day surgery (SDC) | payer MEDICARE, OTHER ==
[2022-07-07 09:52] VITALS: BMI 22.6
== END 2022-07-08 11:58 | disposition home or self-care (01) ==
LOC: SDC 08:52
PROVIDERS: ATTEND Internal Medicine Cardiovascular Disease
DX: I48.0 Paroxysmal atrial fibrillation (principal); I10 Essential (primary) hypertension; I35.0 Nonrheumatic aortic (valve) stenosis; E78.2 Mixed hyperlipidemia; Z53.8 Procedure and treatment not carried out for other reasons; Z79.01 Long term (current) use of anticoagulants; Z79.84 Long term (current) use of oral hypoglycemic drugs; Z79.899 Other long term (current) drug therapy; Z95.1 Presence of aortocoronary bypass graft; Z95.0 Presence of cardiac pacemaker
CPT/HCPCS: 93005; 93010

== ENCOUNTER 2022-10-07 11:32 | Outpatient (CLI) | payer MEDICARE, OTHER | END 2022-10-07 11:33 | disposition home or self-care (01) | LOC: RAD 11:32 | PROVIDERS: ATTEND Internal Medicine | DX: R60.0 Localized edema (principal); I51.7 Cardiomegaly | CPT/HCPCS: 36415; 71046; 80053; 83880; 85025; U0003; U0005 ==

== ENCOUNTER 2022-11-12 12:22 | Outpatient (CLI) | payer MEDICARE, OTHER ==
[~2022-11-12 12:22] MED LIST changes: -ISOVUE-370 76%-LOCM 1 ML ONE; +Iopamidol 370 76% 100 ML VIAL ONE
== END 2022-11-12 12:23 | disposition home or self-care (01) ==
LOC: BICCT 12:22
PROVIDERS: ATTEND Internal Medicine
DX: N28.1 Cyst of kidney, acquired (principal); N28.89 Other specified disorders of kidney and ureter
CPT/HCPCS: 74170; Q9967

== ENCOUNTER 2022-12-01 09:10 | Outpatient (CLI) | payer MEDICARE, OTHER | END 2022-12-01 09:11 | disposition home or self-care (01) | LOC: RAD 09:10 | PROVIDERS: ATTEND Internal Medicine | DX: J90 Pleural effusion, not elsewhere classified (principal) | CPT/HCPCS: 71046 ==

== ENCOUNTER 2022-12-01 13:39 | Inpatient (IN) | payer MEDICARE, OTHER ==
[~2022-12-01 13:39] MED LIST changes: -Iopamidol 370 76% 100 ML VIAL ONE; +Iopamidol-370 76% 500 ML MDV (1 ML CHARGE) ONE
[2022-12-01 15:35] LABS: #Eosinphils 0.1 thou/uL (0.0-0.7); #Monocytes 0.6 thou/uL (0.11-0.59); #Neutrophils 3.8 thou/uL (1.40-6.50); %Basophils 0.2 % (0.0-1.0); %Eosinophils 2.6 % (0.0-10.0); %Lymphocytes 16.4 % (21.0-51.0); %Monocytes 11.5 % (0.0-10.0); %Neutrophils 68.9 % (42.0-75.0); Hemoglobin 9.7 g/dL (14.0-18.0); Mean Corpuscular HGB CONC 32.2 g/dL (32.0-36.0); Mean Corpuscular Hemoglobin 31.4 pg (27.0-31.0); Mean Corpuscular Volume 97.4 fl (78.0-98.0); Mean Platelet Volume 10.4 fL (7.4-10.4); Platelet Count 214 10x3/uL (130-400); Red Blood Cell (RBC) Count 3.09 mill/uL (4.70-6.10); White Blood Cell (WBC) Count 5.5 10x3/uL (4.8-10.8)
[2022-12-01 15:49] LABS: INR-International Normal Ratio 1.7; Prothrombin Time 20.9 sec (12.0-14.7)
[2022-12-01 16:12] LABS: ALT (SGPT) 30 U/L (8-55); AST (SGOT) 44 U/L (5-34); Albumin 3.9 g/dL (3.4-4.8); Alkaline Phosphatase 197 U/L (40-110); Anion Gap 15 mmol/L (10-20); BUN (Urea Nitrogen) 40 mg/dL (8.4-25.7); Bilirubin, Total 1.2 mg/dL (0.2-1.2); Calc. Creatinine Clearance 0 mL/min (70-130); Calcium 9.6 mg/dL (7.8-10.44); Carbon Dioxide 30 mmol/L (23-31); Chloride 93 mmol/L (98-107); Estimated GFR 51; Globulin 3.4 g/dL (2.4-3.5); Glucose 99 mg/dL (83-110); Potassium 3.3 mmol/L (3.5-5.1); Protein, Total 7.3 g/dL (5.8-8.1); Sodium 135 mmol/L (136-145)
[2022-12-01 18:03] LABS: CKMB 1.4 ng/mL (0-6.6)
[2022-12-01] MEDS ORDERED: HYDROcodone/Acetaminophen 5/325 mg Tablet PO PRN (18:05)
[2022-12-01] MEDS ORDERED: Ondansetron ODT 4 MG TAB PO PRN (18:05)
[2022-12-01] MEDS: Amoxicillin/Potassium Clav 875 MG TAB PO SCH (21:43)
[2022-12-01] MEDS: Atorvastatin Calcium 40 MG TAB PO SCH (21:43)
[2022-12-01] MEDS: Apixaban 5 MG TAB PO SCH (21:43)
[2022-12-02 04:44] LABS: #Eosinphils 0.2 thou/uL (0.0-0.7); #Monocytes 0.6 thou/uL (0.11-0.59); #Neutrophils 3.5 thou/uL (1.40-6.50); %Basophils 0.4 % (0.0-1.0); %Eosinophils 2.9 % (0.0-10.0); %Lymphocytes 15.7 % (21.0-51.0); %Neutrophils 68.8 % (42.0-75.0); Hemoglobin 9.4 g/dL (14.0-18.0); Mean Corpuscular HGB CONC 31.9 g/dL (32.0-36.0); Mean Corpuscular Volume 97.4 fl (78.0-98.0); Mean Platelet Volume 10.2 fL (7.4-10.4); Platelet Count 183 10x3/uL (130-400); Red Blood Cell (RBC) Count 3.03 mill/uL (4.70-6.10); White Blood Cell (WBC) Count 5.1 10x3/uL (4.8-10.8)
[2022-12-02 05:09] LABS: Anion Gap 16 mmol/L (10-20); BUN (Urea Nitrogen) 40 mg/dL (8.4-25.7); Calc. Creatinine Clearance 40 mL/min (70-130); Calcium 9.3 mg/dL (7.8-10.44); Carbon Dioxide 30 mmol/L (23-31); Chloride 93 mmol/L (98-107); Estimated GFR 62; Glucose 104 mg/dL (83-110); Potassium 3.5 mmol/L (3.5-5.1); Sodium 135 mmol/L (136-145)
[2022-12-02] MEDS: Furosemide 40 MG/4 ML VIAL SLOW IVP SCH ×2 (05:36→14:31)
[2022-12-02] MEDS ORDERED: Furosemide 40 MG in Sodium Chloride 0.9% 50 ML IVPB SCH (06:00)
[2022-12-02] MEDS ORDERED: Furosemide 20 MG TAB PO SCH (09:00)
[2022-12-02] MEDS: Apixaban 5 MG TAB PO SCH (09:18)
[2022-12-02] MEDS: Icosapent Ethyl 1 GM CAPSULE PO SCH ×2 (09:18→17:47)
[2022-12-02] MEDS: Potassium Chloride 20 MEQ TAB PO SCH ×2 (09:19→17:47)
[2022-12-02 09:35] LABS: Troponin I 0.244 ng/mL (< 0.028)
[2022-12-02] MEDS: Amoxicillin/Potassium Clav 875 MG TAB PO SCH (10:52)
[2022-12-02] MEDS: Atorvastatin Calcium 40 MG TAB PO SCH (20:42)
[2022-12-03] MEDS ORDERED: Sodium Chloride 0.9% 250 ML IV SCH (04:00)
[2022-12-03 05:23] LABS: Hemoglobin 9.1 g/dL (14.0-18.0); Mean Corpuscular HGB CONC 32.4 g/dL (32.0-36.0); Mean Corpuscular Hemoglobin 31.2 pg (27.0-31.0); Mean Corpuscular Volume 96.2 fl (78.0-98.0); Mean Platelet Volume 10.5 fL (7.4-10.4); Platelet Count 172 10x3/uL (130-400); RBC Distribution Width 15.6 % (11.5-14.5); Red Blood Cell (RBC) Count 2.92 mill/uL (4.70-6.10)
[2022-12-03 05:46] LABS: Anion Gap 14 mmol/L (10-20); BUN (Urea Nitrogen) 47 mg/dL (8.4-25.7); Calc. Creatinine Clearance 35 mL/min (70-130); Calcium 8.9 mg/dL (7.8-10.44); Carbon Dioxide 28 mmol/L (23-31); Chloride 96 mmol/L (98-107); Estimated GFR 53; Glucose 103 mg/dL (83-110); Potassium 3.9 mmol/L (3.5-5.1); Sodium 134 mmol/L (136-145)
[2022-12-03] MEDS: Furosemide 40 MG/4 ML VIAL SLOW IVP SCH ×2 (05:53→14:32)
[2022-12-03] MEDS: Icosapent Ethyl 1 GM CAPSULE PO SCH ×2 (08:52→18:15)
[2022-12-03] MEDS: Empagliflozin 10 MG TAB PO SCH (08:53)
[2022-12-03] MEDS: Potassium Chloride 20 MEQ TAB PO SCH ×2 (08:53→18:15)
[2022-12-03] MEDS ORDERED: Lidocaine 1% PF 5 ML VIAL ONE (12:07)
[2022-12-03] MEDS ORDERED: PROPOFOL 200 MG/20 ML VIAL ONE (12:07)
[2022-12-03] MEDS ORDERED: PHENYLEPHRINE-NS 100 MCG/ML 10 ML SYRINGE ONE (12:07)
[2022-12-03] MEDS: Atorvastatin Calcium 40 MG TAB PO SCH (20:45)
[2022-12-04 04:50] LABS: #Eosinphils 0.1 thou/uL (0.0-0.7); #Monocytes 0.5 thou/uL (0.11-0.59); #Neutrophils 3.4 thou/uL (1.40-6.50); %Basophils 0.4 % (0.0-1.0); %Eosinophils 2.2 % (0.0-10.0); %Lymphocytes 18.8 % (21.0-51.0); %Monocytes 10.5 % (0.0-10.0); %Neutrophils 67.7 % (42.0-75.0); Hemoglobin 10.2 g/dL (14.0-18.0); Mean Corpuscular Hemoglobin 30.9 pg (27.0-31.0); Mean Corpuscular Volume 96.7 fl (78.0-98.0); Mean Platelet Volume 10.5 fL (7.4-10.4); Platelet Count 210 10x3/uL (130-400); RBC Distribution Width 15.7 % (11.5-14.5); White Blood Cell (WBC) Count 5.1 10x3/uL (4.8-10.8)
[2022-12-04 05:15] LABS: Anion Gap 17 mmol/L (10-20); BUN (Urea Nitrogen) 48 mg/dL (8.4-25.7); Calc. Creatinine Clearance 36 mL/min (70-130); Calcium 9.7 mg/dL (7.8-10.44); Carbon Dioxide 25 mmol/L (23-31); Chloride 96 mmol/L (98-107); Estimated GFR 56; Glucose 100 mg/dL (83-110); Sodium 134 mmol/L (136-145)
[2022-12-04] MEDS: Furosemide 40 MG/4 ML VIAL SLOW IVP SCH (05:45)
[2022-12-04] MEDS ORDERED: Metolazone 5 MG TAB PO SCH (07:00)
[2022-12-04] MEDS: Empagliflozin 10 MG TAB PO SCH (08:31)
[2022-12-04] MEDS: Icosapent Ethyl 1 GM CAPSULE PO SCH ×2 (08:31→16:23)
[2022-12-04] MEDS ORDERED: Lidocaine 1% PF 5 ML VIAL ONE ×2 (10:05→12:29)
[2022-12-04] MEDS ORDERED: Sodium Bicarbonate 2.5 MEQ/5 ML VIAL ONE ×2 (10:17→12:29)
[2022-12-04 11:46] LABS: Fluid, pH - Pleural Fld Greater than 7.50 (7.60 - 7.66)
[2022-12-04 12:20] LABS: Pleural Fluid, Protein 3.6 g/dL
[2022-12-04 12:21] LABS: RBC Count-Automated (BF) Greater than 890000 /cu.mm; WBC/Nucleated-Auto (BF) 373 /cu.mm
[2022-12-04 12:25] LABS: BF Color Red; Body Fluid Source Thoracentesis Fluid; Clarity Cloudy/Turbid (Clear); Tube # EDTA
[2022-12-04 12:52] LABS: BF Segmented Neutrophils 11 %; Cell Count Non Hematic 36 %; Lymphocytes 53 %
[2022-12-04] MEDS ORDERED: Furosemide 20 MG TAB PO SCH (14:00)
[2022-12-04] MEDS ORDERED: Furosemide 100 MG/10 ML VIAL SLOW IVP SCH (14:00)
[2022-12-04] MEDS ORDERED: Furosemide 40 MG TAB PO SCH (14:00)
[2022-12-04] MEDS: Atorvastatin Calcium 40 MG TAB PO SCH (20:58)
[2022-12-05 04:35] LABS: #Eosinphils 0.2 thou/uL (0.0-0.7); #Monocytes 0.7 thou/uL (0.11-0.59); %Basophils 0.3 % (0.0-1.0); %Eosinophils 2.7 % (0.0-10.0); %Lymphocytes 16.6 % (21.0-51.0); %Monocytes 11.8 % (0.0-10.0); %Neutrophils 68.1 % (42.0-75.0); Hemoglobin 9.1 g/dL (14.0-18.0); Mean Corpuscular HGB CONC 32.4 g/dL (32.0-36.0); Mean Corpuscular Hemoglobin 30.8 pg (27.0-31.0); Mean Corpuscular Volume 95.3 fl (78.0-98.0); Mean Platelet Volume 10.2 fL (7.4-10.4); Platelet Count 164 10x3/uL (130-400); RBC Distribution Width 15.5 % (11.5-14.5); Red Blood Cell (RBC) Count 2.95 mill/uL (4.70-6.10); White Blood Cell (WBC) Count 5.8 10x3/uL (4.8-10.8)
[2022-12-05 04:59] LABS: Anion Gap 14 mmol/L (10-20); BUN (Urea Nitrogen) 46 mg/dL (8.4-25.7); Calc. Creatinine Clearance 31 mL/min (70-130); Carbon Dioxide 28 mmol/L (23-31); Chloride 96 mmol/L (98-107); Estimated GFR 50; Glucose 111 mg/dL (83-110); Potassium 3.5 mmol/L (3.5-5.1); Sodium 134 mmol/L (136-145)
[2022-12-05] MEDS ORDERED: Furosemide 40 MG TAB PO SCH ×2 (07:30)
[2022-12-05] MEDS ORDERED: Furosemide 20 MG TAB PO SCH (07:30)
[2022-12-05 09:25] VITALS: BMI 21.2
[2022-12-05] MEDS: Icosapent Ethyl 1 GM CAPSULE PO SCH (09:51)
[2022-12-05] MEDS: Empagliflozin 10 MG TAB PO SCH (09:51)
[2022-12-05 15:44] VITALS: BP 105/52; TEMP 98.3
== END 2022-12-05 16:07 | disposition home or self-care (01) | DRG 199 ==
LOC: ERS 13:39 → 2NO 17:18
PROVIDERS: ADMIT Internal Medicine; ATTEND Internal Medicine
PROC: B24BZZ4 Ultrasonography of Heart with Aorta, Transesophageal (ICD-10-PCS; principal; 2022-12-03)
PROC: 0W993ZZ Drainage of Right Pleural Cavity, Percutaneous Approach (ICD-10-PCS; 2022-12-04)
DX: S27.1XXA Traumatic hemothorax, initial encounter (principal); I21.A1 Myocardial infarction type 2; J90 Pleural effusion, not elsewhere classified; S22.41XA Multiple fractures of ribs, right side, initial encounter for closed fracture; I13.0 Hypertensive heart and chronic kidney disease with heart failure and stage 1 through stage 4 chronic kidney disease, or unspecified chronic kidney disease; I50.32 Chronic diastolic (congestive) heart failure; I48.91 Unspecified atrial fibrillation; I25.10 Atherosclerotic heart disease of native coronary artery without angina pectoris; E78.5 Hyperlipidemia, unspecified; E87.6 Hypokalemia; N18.30 Chronic kidney disease, stage 3 unspecified; R77.8 Other specified abnormalities of plasma proteins; D63.1 Anemia in chronic kidney disease; I48.0 Paroxysmal atrial fibrillation; E78.00 Pure hypercholesterolemia, unspecified; N40.0 Benign prostatic hyperplasia without lower urinary tract symptoms; Z96.653 Presence of artificial knee joint, bilateral; Z98.890 Other specified postprocedural states; Z95.1 Presence of aortocoronary bypass graft; Z88.1 Allergy status to other antibiotic agents; W18.39XA Other fall on same level, initial encounter
CPT/HCPCS: 36415; 71045; 71046; 71260; 80048; 80053; 82150; 82553; 82945; 83615; 83880; 83986; 84157; 84478; 84484; 85025; 85027; 85060; 85610; 85730; 87116; 87206; 88112; 88305; 89051; 93005; 93312; J1650; J1940; J2704; J7030; Q9967

== ENCOUNTER 2023-01-01 14:28 | Outpatient (CLI) | payer MEDICARE, OTHER | END 2023-01-01 14:29 | disposition home or self-care (01) | LOC: RAD 14:28 | PROVIDERS: ATTEND Internal Medicine Critical Care Medicine | DX: R06.00 Dyspnea, unspecified (principal); J90 Pleural effusion, not elsewhere classified | CPT/HCPCS: 71046 ==

== ENCOUNTER 2023-04-07 15:14 | Outpatient (CLI) | payer MEDICARE, OTHER | END 2023-04-07 15:15 | disposition home or self-care (01) | LOC: BICRAD 15:14 | PROVIDERS: ATTEND Internal Medicine | DX: J06.9 Acute upper respiratory infection, unspecified (principal) | CPT/HCPCS: 71046 ==

== ENCOUNTER 2023-04-15 12:57 | Outpatient (CLI) | payer MEDICARE ==
[~2023-04-15 12:57] MED LIST changes: +Iopamidol 370 76% 100 ML VIAL ONE; -Iopamidol-370 76% 500 ML MDV (1 ML CHARGE) ONE
== END 2023-04-15 12:58 | disposition home or self-care (01) ==
LOC: BICCT 12:57
PROVIDERS: ATTEND Internal Medicine
DX: R91.8 Other nonspecific abnormal finding of lung field (principal); E04.9 Nontoxic goiter, unspecified; J47.9 Bronchiectasis, uncomplicated; J43.2 Centrilobular emphysema; J98.4 Other disorders of lung; J92.9 Pleural plaque without asbestos
CPT/HCPCS: 71260; 82565

== ENCOUNTER 2023-04-28 12:51 | Outpatient (CLI) | payer MEDICARE | END 2023-04-28 12:52 | disposition home or self-care (01) | LOC: BICRAD 12:51 | PROVIDERS: ATTEND Internal Medicine | DX: R05.9 Cough, unspecified (principal) | CPT/HCPCS: 71046 ==

== ENCOUNTER 2023-05-01 15:22 | Outpatient (CLI) | payer MEDICARE | END 2023-05-01 15:23 | disposition home or self-care (01) | LOC: BICULT 15:22 | PROVIDERS: ATTEND Internal Medicine | DX: E01.0 Iodine-deficiency related diffuse (endemic) goiter (principal); E04.2 Nontoxic multinodular goiter | CPT/HCPCS: 76536 ==

== ENCOUNTER 2024-02-08 16:44 | Inpatient (IN) | payer MEDICARE ==
[2024-02-08 17:23] LABS: #Basophils Less than 0.03 10x3/uL (0.0-0.2); %Basophils 0.2 % (0.0-1.0); %Eosinophils 7.3 % (0.0-10.0); %Lymphocytes 9.7 % (21.0-51.0); %Monocytes 9.9 % (0.0-10.0); %Neutrophils 72.7 % (42.0-75.0); Hematocrit 31.4 % (42.0-52.0); Mean Corpuscular HGB CONC 31.8 g/dL (32.0-36.0); Mean Corpuscular Hemoglobin 33.1 pg (27.0-31.0); Mean Platelet Volume 10.3 fL (7.4-10.4); Platelet Count 175 10x3/uL (130-400); RBC Distribution Width 17.9 % (11.5-14.5); Red Blood Cell (RBC) Count 3.02 mill/uL (4.70-6.10)
[2024-02-08 17:39] LABS: ALT (SGPT) 30 U/L (8-55); AST (SGOT) 44 U/L (5-34); Albumin 3.5 g/dL (3.4-4.8); Alkaline Phosphatase 180 U/L (40-110); Anion Gap 16 mmol/L (10-20); BUN (Urea Nitrogen) 30 mg/dL (8.4-25.7); Bilirubin, Total 2.1 mg/dL (0.2-1.2); Calc. Creatinine Clearance 0 mL/min (70-130); Calcium 9.5 mg/dL (7.8-10.44); Carbon Dioxide 21 mmol/L (23-31); Chloride 104 mmol/L (98-107); Estimated GFR 60; Globulin 3.6 g/dL (2.4-3.5); Glucose 116 mg/dL (83-110); Potassium 4.4 mmol/L (3.5-5.1); Protein, Total 7.1 g/dL (5.8-8.1); Sodium 137 mmol/L (136-145)
[2024-02-08 17:43] LABS: Troponin I 0.164 ng/mL (< 0.028)
[2024-02-08] MEDS ORDERED: Furosemide 40 MG (4 mL) VIAL ONE (19:31)
[2024-02-08 20:02] LABS: Troponin I 0.158 ng/mL (< 0.028)
[2024-02-08] MEDS ORDERED: Acetaminophen 650 MG Suppository PR PRN (20:25)
[2024-02-08] MEDS ORDERED: Ondansetron PF 4 MG/2 ML Vial IVP PRN (20:25)
[2024-02-08 20:45] LABS: Magnesium 2.3 mg/dL (1.6-2.6)
[2024-02-08] MEDS: Atorvastatin Calcium 40 MG TAB PO SCH (22:00)
[2024-02-08] MEDS: Tamsulosin HCl 0.4 MG CAP PO SCH (22:01)
[2024-02-09 00:14] LABS: Troponin I 0.155 ng/mL (< 0.028)
[2024-02-09 04:21] LABS: #Basophils Less than 0.03 10x3/uL (0.0-0.2); %Basophils 0.5 % (0.0-1.0); %Eosinophils 5.2 % (0.0-10.0); %Lymphocytes 7.7 % (21.0-51.0); %Monocytes 8.9 % (0.0-10.0); Hematocrit 29.5 % (42.0-52.0); Hemoglobin 9.3 g/dL (14.0-18.0); Mean Corpuscular HGB CONC 31.5 g/dL (32.0-36.0); Mean Corpuscular Hemoglobin 32.5 pg (27.0-31.0); Mean Corpuscular Volume 103.1 fL (78.0-98.0); Mean Platelet Volume 10.2 fL (7.4-10.4); Platelet Count 161 10x3/uL (130-400); RBC Distribution Width 17.6 % (11.5-14.5); Red Blood Cell (RBC) Count 2.86 mill/uL (4.70-6.10)
[2024-02-09 04:48] LABS: ALT (SGPT) 27 U/L (8-55); AST (SGOT) 39 U/L (5-34); Albumin 3.1 g/dL (3.4-4.8); Alkaline Phosphatase 158 U/L (40-110); Anion Gap 16 mmol/L (10-20); BUN (Urea Nitrogen) 26 mg/dL (8.4-25.7); Bilirubin, Total 2.4 mg/dL (0.2-1.2); Calc. Creatinine Clearance 56 mL/min (70-130); Carbon Dioxide 19 mmol/L (23-31); Chloride 104 mmol/L (98-107); Estimated GFR 75; Globulin 3.3 g/dL (2.4-3.5); Glucose 105 mg/dL (83-110); Protein, Total 6.4 g/dL (5.8-8.1); Sodium 135 mmol/L (136-145)
[2024-02-09] MEDS: Furosemide 40 MG (4 mL) VIAL SLOW IVP SCH (06:08)
[2024-02-09] MEDS: Polyethylene Glycol 3350 17 GM Packet PO SCH (09:04)
[2024-02-09] MEDS: Metoprolol Tartrate 50 MG TAB PO SCH (09:04)
[2024-02-09] MEDS: Icosapent Ethyl 1 GM CAPSULE PO SCH (09:04)
[2024-02-09] MEDS: Empagliflozin 10 MG TAB PO SCH (09:04)
[2024-02-09] MEDS: Aspirin 81 mg Enteric Coated Tablet PO SCH (09:04)
[2024-02-09] MEDS: Spironolactone 25 MG TAB PO SCH (09:04)
[2024-02-09] MEDS: Enoxaparin 30 MG (0.3 mL) SYRINGE SC SCH (21:28)
[2024-02-10 04:53] VITALS: BMI 23.8
[2024-02-10 05:23] LABS: #Basophils 0.03 10x3/uL (0.0-0.2); %Basophils 0.7 % (0.0-1.0); %Eosinophils 5.7 % (0.0-10.0); %Lymphocytes 12.8 % (21.0-51.0); %Monocytes 11.4 % (0.0-10.0); %Neutrophils 68.7 % (42.0-75.0); Hematocrit 27.1 % (42.0-52.0); Hemoglobin 8.6 g/dL (14.0-18.0); Mean Corpuscular HGB CONC 31.7 g/dL (32.0-36.0); Mean Corpuscular Hemoglobin 32.3 pg (27.0-31.0); Mean Corpuscular Volume 101.9 fL (78.0-98.0); Mean Platelet Volume 10.1 fL (7.4-10.4); Platelet Count 160 10x3/uL (130-400); RBC Distribution Width 17.4 % (11.5-14.5); Red Blood Cell (RBC) Count 2.66 mill/uL (4.70-6.10)
[2024-02-10 05:45] LABS: Anion Gap 12 mmol/L (10-20); BUN (Urea Nitrogen) 29 mg/dL (8.4-25.7); Calc. Creatinine Clearance 46 mL/min (70-130); Calcium 8.8 mg/dL (7.8-10.44); Carbon Dioxide 22 mmol/L (23-31); Chloride 103 mmol/L (98-107); Estimated GFR 66; Glucose 106 mg/dL (83-110); Potassium 3.9 mmol/L (3.5-5.1); Sodium 133 mmol/L (136-145)
[2024-02-10] MEDS: Metolazone 5 MG TAB PO SCH (08:26)
[2024-02-11 04:47] LABS: #Basophils Less than 0.03 10x3/uL (0.0-0.2); %Basophils 0.4 % (0.0-1.0); %Eosinophils 7.9 % (0.0-10.0); %Lymphocytes 11.7 % (21.0-51.0); %Neutrophils 68.6 % (42.0-75.0); Hematocrit 27.3 % (42.0-52.0); Mean Corpuscular Hemoglobin 33.1 pg (27.0-31.0); Mean Corpuscular Volume 100.4 fL (78.0-98.0); Mean Platelet Volume 10.2 fL (7.4-10.4); Platelet Count 179 10x3/uL (130-400); RBC Distribution Width 17.2 % (11.5-14.5); Red Blood Cell (RBC) Count 2.72 mill/uL (4.70-6.10)
[2024-02-11 05:09] LABS: Anion Gap 15 mmol/L (10-20); BUN (Urea Nitrogen) 37 mg/dL (8.4-25.7); Calc. Creatinine Clearance 43 mL/min (70-130); Carbon Dioxide 23 mmol/L (23-31); Chloride 97 mmol/L (98-107); Estimated GFR 60; Glucose 99 mg/dL (83-110); Potassium 3.9 mmol/L (3.5-5.1); Sodium 131 mmol/L (136-145)
[2024-02-11] MEDS: Acetaminophen 325 MG TAB PO PRN (18:21)
[2024-02-11] MEDS: Furosemide 40 MG (4 mL) VIAL SLOW IVP SCH (20:09)
[2024-02-12 04:29] LABS: #Basophils Less than 0.03 10x3/uL (0.0-0.2); %Basophils 0.5 % (0.0-1.0); %Eosinophils 8.5 % (0.0-10.0); %Lymphocytes 10.8 % (21.0-51.0); %Monocytes 12.6 % (0.0-10.0); %Neutrophils 67.1 % (42.0-75.0); Hematocrit 29.9 % (42.0-52.0); Hemoglobin 9.9 g/dL (14.0-18.0); Mean Corpuscular HGB CONC 33.1 g/dL (32.0-36.0); Mean Corpuscular Hemoglobin 32.5 pg (27.0-31.0); Mean Platelet Volume 10.1 fL (7.4-10.4); Platelet Count 202 10x3/uL (130-400); RBC Distribution Width 16.9 % (11.5-14.5); Red Blood Cell (RBC) Count 3.05 mill/uL (4.70-6.10)
[2024-02-12 04:48] LABS: Anion Gap 16 mmol/L (10-20); BUN (Urea Nitrogen) 49 mg/dL (8.4-25.7); Calc. Creatinine Clearance 32 mL/min (70-130); Calcium 9.1 mg/dL (7.8-10.44); Carbon Dioxide 25 mmol/L (23-31); Chloride 94 mmol/L (98-107); Estimated GFR 46; Glucose 111 mg/dL (83-110); Sodium 131 mmol/L (136-145)
[2024-02-12] MEDS: Ranolazine ER 500 MG TAB PO SCH ×2 (09:33→20:48)
[2024-02-12] MEDS: Albumin 25% 25 GM (100 mL) BOT IVPB SCH (12:11)
[2024-02-13 05:22] LABS: #Basophils Less than 0.03 10x3/uL (0.0-0.2); %Basophils 0.2 % (0.0-1.0); %Eosinophils 8.1 % (0.0-10.0); %Monocytes 10.7 % (0.0-10.0); %Neutrophils 71.6 % (42.0-75.0); Hematocrit 28.5 % (42.0-52.0); Hemoglobin 9.4 g/dL (14.0-18.0); Mean Corpuscular Hemoglobin 32.8 pg (27.0-31.0); Mean Corpuscular Volume 99.3 fL (78.0-98.0); Mean Platelet Volume 10.1 fL (7.4-10.4); Platelet Count 185 10x3/uL (130-400); RBC Distribution Width 16.6 % (11.5-14.5); Red Blood Cell (RBC) Count 2.87 mill/uL (4.70-6.10)
[2024-02-13 05:37] LABS: ALT (SGPT) 26 U/L (8-55); AST (SGOT) 37 U/L (5-34); Albumin 3.6 g/dL (3.4-4.8); Alkaline Phosphatase 172 U/L (40-110); Anion Gap 16 mmol/L (10-20); BUN (Urea Nitrogen) 58 mg/dL (8.4-25.7); Bilirubin, Total 2.2 mg/dL (0.2-1.2); Calc. Creatinine Clearance 25 mL/min (70-130); Calcium 9.1 mg/dL (7.8-10.44); Carbon Dioxide 24 mmol/L (23-31); Chloride 91 mmol/L (98-107); Estimated GFR 34; Globulin 3.4 g/dL (2.4-3.5); Glucose 116 mg/dL (83-110); Magnesium 2.3 mg/dL (1.6-2.6); Potassium 4.4 mmol/L (3.5-5.1); Sodium 127 mmol/L (136-145)
[2024-02-13] MEDS: Lactated Ringer's 1,000 ML IV SCH (11:02)
[2024-02-13 11:51] LABS: Lactic Acid 1.45 mmol/L (0.5-2.2)
[2024-02-13] MEDS: Amiodarone 200 MG TAB PO SCH (15:43)
[2024-02-13] MEDS: DOBUTamine 500 mg/250 ml 250 ML IVPB SCH (17:36)
[2024-02-14 09:46] LABS: #Basophils Less than 0.03 10x3/uL (0.0-0.2); %Basophils 0.2 % (0.0-1.0); %Eosinophils 1.7 % (0.0-10.0); %Lymphocytes 5.5 % (21.0-51.0); %Monocytes 7.8 % (0.0-10.0); %Neutrophils 84.2 % (42.0-75.0); Hematocrit 27.3 % (42.0-52.0); Mean Corpuscular Hemoglobin 32.5 pg (27.0-31.0); Mean Corpuscular Volume 98.6 fL (78.0-98.0); Mean Platelet Volume 10.6 fL (7.4-10.4); Platelet Count 164 10x3/uL (130-400); RBC Distribution Width 16.6 % (11.5-14.5); Red Blood Cell (RBC) Count 2.77 mill/uL (4.70-6.10)
[2024-02-14 10:09] LABS: ALT (SGPT) 31 U/L (8-55); AST (SGOT) 51 U/L (5-34); Albumin 3.5 g/dL (3.4-4.8); Alkaline Phosphatase 163 U/L (40-110); Anion Gap 15 mmol/L (10-20); BUN (Urea Nitrogen) 45 mg/dL (8.4-25.7); Bilirubin, Total 1.9 mg/dL (0.2-1.2); Calc. Creatinine Clearance 32 mL/min (70-130); Calcium 9.2 mg/dL (7.8-10.44); Carbon Dioxide 25 mmol/L (23-31); Chloride 93 mmol/L (98-107); Estimated GFR 47; Globulin 3.7 g/dL (2.4-3.5); Glucose 137 mg/dL (83-110); Magnesium 2.6 mg/dL (1.6-2.6); Potassium 4.4 mmol/L (3.5-5.1); Protein, Total 7.2 g/dL (5.8-8.1); Sodium 129 mmol/L (136-145)
[2024-02-15] MEDS: DOBUTamine 500 mg/250 ml 500 MG in Premix 1 BAG IVPB SCH (00:35)
[2024-02-15] MEDS ORDERED: Cosyntropin 250 MCG VIAL SLOW IVP SCH (03:30)
[2024-02-15 06:04] LABS: #Basophils Less than 0.03 10x3/uL (0.0-0.2); %Basophils 0.2 % (0.0-1.0); %Eosinophils 4.7 % (0.0-10.0); %Lymphocytes 7.3 % (21.0-51.0); %Monocytes 9.1 % (0.0-10.0); %Neutrophils 78.2 % (42.0-75.0); Hematocrit 27.4 % (42.0-52.0); Mean Corpuscular HGB CONC 32.8 g/dL (32.0-36.0); Mean Corpuscular Volume 97.5 fL (78.0-98.0); Mean Platelet Volume 10.5 fL (7.4-10.4); Platelet Count 159 10x3/uL (130-400); RBC Distribution Width 16.6 % (11.5-14.5); Red Blood Cell (RBC) Count 2.81 mill/uL (4.70-6.10)
[2024-02-15 06:19] LABS: ALT (SGPT) 26 U/L (8-55); AST (SGOT) 36 U/L (5-34); Albumin 3.3 g/dL (3.4-4.8); Alkaline Phosphatase 146 U/L (40-110); Anion Gap 16 mmol/L (10-20); BUN (Urea Nitrogen) 40 mg/dL (8.4-25.7); Calc. Creatinine Clearance 34 mL/min (70-130); Calcium 9.1 mg/dL (7.8-10.44); Carbon Dioxide 22 mmol/L (23-31); Chloride 96 mmol/L (98-107); Estimated GFR 51; Globulin 3.6 g/dL (2.4-3.5); Glucose 110 mg/dL (83-110); Magnesium 2.4 mg/dL (1.6-2.6); Potassium 4.4 mmol/L (3.5-5.1); Protein, Total 6.9 g/dL (5.8-8.1); Sodium 130 mmol/L (136-145)
[2024-02-15] MEDS: Cosyntropin 250 MCG VIAL SLOW IVP SCH (09:07)
[2024-02-15] MEDS ORDERED: PROPOFOL 200 MG/20 ML VIAL ONE (13:10)
[2024-02-15] MEDS ORDERED: PHENYLEPHRINE-NS 100 MCG/ML 10 ML SYRINGE ONE (13:10)
[2024-02-15] MEDS ORDERED: ePHEDrine Sulfate 50 MG/10 ML VIAL ONE (13:10)
[2024-02-15] MEDS: Ondansetron ODT 4 MG TAB PO PRN (14:31)
[2024-02-15 17:26] LABS: Anion Gap 15 mmol/L (10-20); BUN (Urea Nitrogen) 36 mg/dL (8.4-25.7); Calc. Creatinine Clearance 36 mL/min (70-130); Calcium 8.3 mg/dL (7.8-10.44); Carbon Dioxide 20 mmol/L (23-31); Chloride 100 mmol/L (98-107); Estimated GFR 55; Glucose 156 mg/dL (83-110); Magnesium 2.4 mg/dL (1.6-2.6); Potassium 4.4 mmol/L (3.5-5.1); Sodium 131 mmol/L (136-145)
[2024-02-15] MEDS: Potassium Chloride 20 MEQ TAB PO SCH (17:45)
[2024-02-15] MEDS: Potassium Chloride 10 MEQ TAB PO SCH (17:49)
[2024-02-16 06:12] LABS: #Basophils Less than 0.03 10x3/uL (0.0-0.2); %Basophils 0.2 % (0.0-1.0); %Eosinophils 2.1 % (0.0-10.0); %Lymphocytes 10.3 % (21.0-51.0); %Monocytes 10.7 % (0.0-10.0); %Neutrophils 76.3 % (42.0-75.0); Hematocrit 29.5 % (42.0-52.0); Hemoglobin 9.1 g/dL (14.0-18.0); Mean Corpuscular HGB CONC 30.8 g/dL (32.0-36.0); Mean Corpuscular Hemoglobin 32.6 pg (27.0-31.0); Mean Corpuscular Volume 105.7 fL (78.0-98.0); Mean Platelet Volume 10.6 fL (7.4-10.4); Platelet Count 152 10x3/uL (130-400); RBC Distribution Width 16.5 % (11.5-14.5); Red Blood Cell (RBC) Count 2.79 mill/uL (4.70-6.10)
[2024-02-16 06:39] LABS: ALT (SGPT) 26 U/L (8-55); AST (SGOT) 37 U/L (5-34); Albumin 3.4 g/dL (3.4-4.8); Alkaline Phosphatase 149 U/L (40-110); Anion Gap 18 mmol/L (10-20); BUN (Urea Nitrogen) 50 mg/dL (8.4-25.7); Bilirubin, Total 2.3 mg/dL (0.2-1.2); Calc. Creatinine Clearance 28 mL/min (70-130); Carbon Dioxide 18 mmol/L (23-31); Chloride 96 mmol/L (98-107); Estimated GFR 40; Globulin 3.5 g/dL (2.4-3.5); Glucose 118 mg/dL (83-110); Potassium 4.8 mmol/L (3.5-5.1); Protein, Total 6.9 g/dL (5.8-8.1); Sodium 127 mmol/L (136-145)
[2024-02-16] MEDS: Milrinone Lactate/D5W 20 MG in Premix 1 BAG IV SCH (10:08)
[2024-02-17 04:42] LABS: #Basophils Less than 0.03 10x3/uL (0.0-0.2); %Basophils 0.3 % (0.0-1.0); %Eosinophils 4.1 % (0.0-10.0); %Lymphocytes 6.3 % (21.0-51.0); %Monocytes 8.5 % (0.0-10.0); %Neutrophils 80.4 % (42.0-75.0); Hematocrit 27.9 % (42.0-52.0); Hemoglobin 9.1 g/dL (14.0-18.0); Mean Corpuscular HGB CONC 32.6 g/dL (32.0-36.0); Mean Corpuscular Hemoglobin 31.6 pg (27.0-31.0); Mean Corpuscular Volume 96.9 fL (78.0-98.0); Mean Platelet Volume 10.6 fL (7.4-10.4); Platelet Count 156 10x3/uL (130-400); RBC Distribution Width 16.4 % (11.5-14.5); Red Blood Cell (RBC) Count 2.88 mill/uL (4.70-6.10)
[2024-02-17 05:02] LABS: ALT (SGPT) 25 U/L (8-55); AST (SGOT) 33 U/L (5-34); Albumin 3.3 g/dL (3.4-4.8); Alkaline Phosphatase 138 U/L (40-110); Anion Gap 16 mmol/L (10-20); BUN (Urea Nitrogen) 60 mg/dL (8.4-25.7); Calc. Creatinine Clearance 27 mL/min (70-130); Calcium 8.8 mg/dL (7.8-10.44); Carbon Dioxide 20 mmol/L (23-31); Chloride 97 mmol/L (98-107); Estimated GFR 38; Globulin 3.4 g/dL (2.4-3.5); Glucose 123 mg/dL (83-110); Magnesium 2.7 mg/dL (1.6-2.6); Potassium 4.6 mmol/L (3.5-5.1); Protein, Total 6.7 g/dL (5.8-8.1); Sodium 128 mmol/L (136-145)
[2024-02-17] MEDS ORDERED: Sodium Bicarbonate 0.5 MEQ/ML SDV 10 ML ONE (13:42)
[2024-02-17] MEDS ORDERED: Lidocaine 1% PF 5 ML VIAL ONE (13:42)
[2024-02-17 15:34] VITALS: BMI 21.6
[2024-02-17] MEDS: DOBUTamine 500 mg/250 ml 500 MG in Premix 1 BAG IVPB SCH (20:19)
[2024-02-18 06:08] LABS: #Basophils Less than 0.03 10x3/uL (0.0-0.2); %Basophils 0.3 % (0.0-1.0); %Lymphocytes 6.6 % (21.0-51.0); %Monocytes 8.2 % (0.0-10.0); %Neutrophils 81.1 % (42.0-75.0); Hematocrit 24.3 % (42.0-52.0); Hemoglobin 7.9 g/dL (14.0-18.0); Mean Corpuscular HGB CONC 32.5 g/dL (32.0-36.0); Mean Corpuscular Hemoglobin 32.2 pg (27.0-31.0); Mean Corpuscular Volume 99.2 fL (78.0-98.0); Mean Platelet Volume 10.4 fL (7.4-10.4); Platelet Count 151 10x3/uL (130-400); RBC Distribution Width 16.4 % (11.5-14.5); Red Blood Cell (RBC) Count 2.45 mill/uL (4.70-6.10)
[2024-02-18 06:28] LABS: Anion Gap 14 mmol/L (10-20); BUN (Urea Nitrogen) 62 mg/dL (8.4-25.7); Calc. Creatinine Clearance 25 mL/min (70-130); Calcium 8.7 mg/dL (7.8-10.44); Carbon Dioxide 22 mmol/L (23-31); Chloride 94 mmol/L (98-107); Estimated GFR 36; Glucose 125 mg/dL (83-110); Potassium 4.1 mmol/L (3.5-5.1); Sodium 126 mmol/L (136-145)
[2024-02-18] MEDS: Potassium Chloride 10 MEQ TAB PO SCH (09:39)
[2024-02-18] MEDS: Sodium Chloride 1 GM TAB PO SCH (16:30)
[2024-02-19 05:03] LABS: #Basophils Less than 0.03 10x3/uL (0.0-0.2); %Basophils 0.3 % (0.0-1.0); %Eosinophils 3.9 % (0.0-10.0); %Lymphocytes 5.7 % (21.0-51.0); %Monocytes 8.5 % (0.0-10.0); %Neutrophils 81.1 % (42.0-75.0); Hematocrit 26.3 % (42.0-52.0); Hemoglobin 8.7 g/dL (14.0-18.0); Mean Corpuscular HGB CONC 33.1 g/dL (32.0-36.0); Mean Corpuscular Hemoglobin 32.1 pg (27.0-31.0); Mean Platelet Volume 10.3 fL (7.4-10.4); Platelet Count 149 10x3/uL (130-400); RBC Distribution Width 17.4 % (11.5-14.5); Red Blood Cell (RBC) Count 2.71 mill/uL (4.70-6.10)
[2024-02-19 05:22] LABS: Anion Gap 13 mmol/L (10-20); BUN (Urea Nitrogen) 52 mg/dL (8.4-25.7); Calc. Creatinine Clearance 30 mL/min (70-130); Calcium 8.5 mg/dL (7.8-10.44); Carbon Dioxide 21 mmol/L (23-31); Chloride 98 mmol/L (98-107); Estimated GFR 44; Glucose 115 mg/dL (83-110); Potassium 4.1 mmol/L (3.5-5.1); Sodium 128 mmol/L (136-145)
[2024-02-19 06:48] LABS: Magnesium 2.7 mg/dL (1.6-2.6)
[2024-02-19] MEDS: Potassium Chloride 10 MEQ TAB PO SCH (09:37)
[2024-02-19] MEDS: Acetaminophen 500 MG TAB PO SCH (09:38)
[2024-02-19] MEDS: Senokot S 8.6-50 MG TAB PO PRN (09:45)
[2024-02-19] MEDS: Bisacodyl 10 MG SUPP PR SCH (15:48)
[2024-02-20 04:39] LABS: Hematocrit 28.4 % (42.0-52.0); Hemoglobin 9.6 g/dL (14.0-18.0); Mean Corpuscular HGB CONC 33.8 g/dL (32.0-36.0); Mean Corpuscular Volume 94.7 fL (78.0-98.0); Mean Platelet Volume 10.1 fL (7.4-10.4); Platelet Count 148 10x3/uL (130-400)
[2024-02-20 05:38] LABS: Anion Gap 14 mmol/L (10-20); BUN (Urea Nitrogen) 50 mg/dL (8.4-25.7); Calc. Creatinine Clearance 35 mL/min (70-130); Calcium 8.5 mg/dL (7.8-10.44); Carbon Dioxide 20 mmol/L (23-31); Chloride 102 mmol/L (98-107); Estimated GFR 54; Glucose 109 mg/dL (83-110); Potassium 4.1 mmol/L (3.5-5.1); Sodium 132 mmol/L (136-145)
[2024-02-20 10:14] VITALS: BP 143/81
[2024-02-20] MEDS: Potassium Chloride 10 MEQ TAB PO SCH (13:13)
[2024-02-20] MEDS: Enoxaparin 40 MG (0.4 mL) SYRINGE SC SCH (20:40)
[2024-02-20 22:24] VITALS: TEMP 98.1
[2024-02-21] MEDS ORDERED: Potassium Chloride 10 MEQ TAB PO SCH (08:00)
== END 2024-02-20 21:20 | disposition short-term general hospital (02) | DRG 291 ==
LOC: ERS 16:44 → 2SW 19:11 → OBSVTOIN 02-10 09:26 → IMCU/EMU 02-13 13:59
PROVIDERS: ADMIT Student in an Organized Health Care Education/Training Program; ATTEND Internal Medicine
PROC: 30233J1 Transfusion of Nonautologous Serum Albumin into Peripheral Vein, Percutaneous Approach (ICD-10-PCS; 2024-02-12)
PROC: 5A2204Z Restoration of Cardiac Rhythm, Single (ICD-10-PCS; principal; 2024-02-15)
PROC: B24BZZ4 Ultrasonography of Heart with Aorta, Transesophageal (ICD-10-PCS; 2024-02-15)
PROC: 02HV33Z Insertion of Infusion Device into Superior Vena Cava, Percutaneous Approach (ICD-10-PCS; 2024-02-17)
PROC: 30233N1 Transfusion of Nonautologous Red Blood Cells into Peripheral Vein, Percutaneous Approach (ICD-10-PCS; 2024-02-18)
DX: I13.0 Hypertensive heart and chronic kidney disease with heart failure and stage 1 through stage 4 chronic kidney disease, or unspecified chronic kidney disease (principal); I50.33 Acute on chronic diastolic (congestive) heart failure; I48.21 Permanent atrial fibrillation; E87.1 Hypo-osmolality and hyponatremia; N17.9 Acute kidney failure, unspecified; N18.30 Chronic kidney disease, stage 3 unspecified; N40.0 Benign prostatic hyperplasia without lower urinary tract symptoms; I25.10 Atherosclerotic heart disease of native coronary artery without angina pectoris; Z88.1 Allergy status to other antibiotic agents; Z79.82 Long term (current) use of aspirin; Z79.899 Other long term (current) drug therapy; I25.2 Old myocardial infarction; Z98.890 Other specified postprocedural states; E78.00 Pure hypercholesterolemia, unspecified; Z95.0 Presence of cardiac pacemaker; I07.1 Rheumatic tricuspid insufficiency; D63.1 Anemia in chronic kidney disease; I35.0 Nonrheumatic aortic (valve) stenosis; K59.00 Constipation, unspecified; Z95.1 Presence of aortocoronary bypass graft; I49.5 Sick sinus syndrome
CPT/HCPCS: 36415; 36416; 36430; 36569; 71045; 74018; 76937; 77001; 80048; 80053; 80400; 82533; 83605; 83735; 83880; 84443; 84484; 85025; 85027; 86850; 86900; 86901; 92960; 93005; 93010; 93306; 93312; 96372; 96374; 96376; 97139; C1751; G0378; J0834; J1250; J1650; J1940; J2260; J2704; J7120; P9016; P9047; Q0162

== ENCOUNTER 2024-03-22 15:07 | Inpatient (IN) | payer MEDICARE ==
[2024-03-22 17:07] LABS: #Basophils Less than 0.03 10x3/uL (0.0-0.2); %Basophils 0.1 % (0.0-1.0); %Eosinophils 0.8 % (0.0-10.0); %Lymphocytes 3.6 % (21.0-51.0); %Monocytes 5.7 % (0.0-10.0); Hematocrit 25.6 % (42.0-52.0); Hemoglobin 8.1 g/dL (14.0-18.0); Mean Corpuscular HGB CONC 31.6 g/dL (32.0-36.0); Mean Corpuscular Hemoglobin 33.2 pg (27.0-31.0); Mean Corpuscular Volume 104.9 fL (78.0-98.0); Platelet Count 123 10x3/uL (130-400); RBC Distribution Width 22.5 % (11.5-14.5); Red Blood Cell (RBC) Count 2.44 mill/uL (4.70-6.10)
[2024-03-22 17:23] LABS: INR-International Normal Ratio 1.2; PTT 37.7 sec (22.9-36.1); Prothrombin Time 15.4 sec (12.0-14.7)
[2024-03-22 17:27] LABS: ALT (SGPT) 74 U/L (8-55); AST (SGOT) 61 U/L (5-34); Albumin 3.1 g/dL (3.4-4.8); Alkaline Phosphatase 151 U/L (40-110); Anion Gap 16 mmol/L (10-20); BUN (Urea Nitrogen) 46 mg/dL (8.4-25.7); Bilirubin, Total 2.3 mg/dL (0.2-1.2); Calc. Creatinine Clearance 0 mL/min (70-130); Calcium 8.4 mg/dL (7.8-10.44); Carbon Dioxide 22 mmol/L (23-31); Chloride 99 mmol/L (98-107); Estimated GFR 42; Globulin 3.5 g/dL (2.4-3.5); Glucose 117 mg/dL (83-110); Potassium 4.5 mmol/L (3.5-5.1); Protein, Total 6.6 g/dL (5.8-8.1); Sodium 132 mmol/L (136-145)
[2024-03-22 17:45] LABS: Troponin I 0.309 ng/mL (< 0.028)
[2024-03-22 17:56] LABS: Bacteria/HPF None Seen HPF (None Seen); Bilirubin Negative (Negative); Blood, Urine Negative (Negative); CAUTI Indications for Culture Dysuria,urgency,freq; Clarity Clear (Clear); Glucose, Urine (Dipstick) Normal (Negative); Ketone, Urine Negative (Negative); Leukocyte Negative Leu/uL (Negative); Nitrite Negative (Negative); Protein, Urine (Dipstick) Negative (Neg-Trace); RBC/HPF 0-3 HPF (0-3); Specific Gravity, Urine 1.006 (1.002-1.036); Squamous Epithelial None Seen HPF (0-3); WBC/HPF None Seen HPF (0-3)
[2024-03-22 17:57] LABS: Urine Culture Reflex No No
[2024-03-22] MEDS ORDERED: Aspirin Chewable 81 MG TAB ONE (18:24)
[2024-03-22] MEDS ORDERED: Acetaminophen 325 MG TAB PO PRN (19:54)
[2024-03-22] MEDS ORDERED: Acetaminophen 650 MG Suppository PR PRN (19:54)
[2024-03-22 20:21] LABS: Magnesium 2.2 mg/dL (1.6-2.6)
[2024-03-22 20:58] LABS: Troponin I 0.301 ng/mL (< 0.028)
[2024-03-22 23:49] LABS: Troponin I 0.321 ng/mL (< 0.028)
[2024-03-23 04:20] LABS: #Basophils Less than 0.03 10x3/uL (0.0-0.2); %Basophils 0.1 % (0.0-1.0); %Eosinophils 0.8 % (0.0-10.0); %Lymphocytes 4.6 % (21.0-51.0); %Monocytes 6.7 % (0.0-10.0); %Neutrophils 87.1 % (42.0-75.0); Hemoglobin 7.5 g/dL (14.0-18.0); Mean Corpuscular HGB CONC 31.3 g/dL (32.0-36.0); Mean Corpuscular Hemoglobin 32.5 pg (27.0-31.0); Mean Corpuscular Volume 103.9 fL (78.0-98.0); Mean Platelet Volume 9.9 fL (7.4-10.4); Platelet Count 127 10x3/uL (130-400); RBC Distribution Width 22.3 % (11.5-14.5); Red Blood Cell (RBC) Count 2.31 mill/uL (4.70-6.10)
[2024-03-23 04:39] LABS: ALT (SGPT) 72 U/L (8-55); AST (SGOT) 57 U/L (5-34); Alkaline Phosphatase 136 U/L (40-110); Anion Gap 14 mmol/L (10-20); BUN (Urea Nitrogen) 44 mg/dL (8.4-25.7); Bilirubin, Total 2.3 mg/dL (0.2-1.2); Calc. Creatinine Clearance 37 mL/min (70-130); Calcium 8.4 mg/dL (7.8-10.44); Carbon Dioxide 21 mmol/L (23-31); Chloride 100 mmol/L (98-107); Estimated GFR 49; Globulin 3.3 g/dL (2.4-3.5); Glucose 111 mg/dL (83-110); Potassium 4.2 mmol/L (3.5-5.1); Protein, Total 6.3 g/dL (5.8-8.1); Sodium 131 mmol/L (136-145)
[2024-03-23] MEDS: Furosemide 40 MG (4 mL) VIAL SLOW IVP SCH ×2 (05:05→08:39)
[2024-03-23] MEDS: Polymyxin B Sulf/Trimethoprim 10 ML OPHTH DROPS R EYE SCH (05:05)
[2024-03-23] MEDS: Atorvastatin Calcium 40 MG TAB PO SCH (08:40)
[2024-03-23] MEDS: Amiodarone 200 MG TAB PO SCH ×2 (08:40→09:41)
[2024-03-23] MEDS: Aspirin 81 mg Enteric Coated Tablet PO SCH (09:41)
[2024-03-23] MEDS: Dextrose 5 %-0.45 % NaCl 1,000 ML IV SCH (09:42)
[2024-03-23] MEDS: Albuterol 2.5 MG (3 mL) NEB NEB SCH (23:45)
[2024-03-24 05:53] LABS: T4 6.48 ug/dL (4.87-11.72); Thyroid Stimulating Hormone 0.6152 uIU/mL (0.35-4.94)
[2024-03-24] MEDS: Senokot S 8.6-50 MG TAB PO PRN (09:00)
[2024-03-24] MEDS: Polyethylene Glycol 3350 17 GM Packet PO PRN (20:08)
[2024-03-25] MEDS: Bisacodyl 10 MG SUPP PR PRN (00:19)
[2024-03-25] MEDS: Docusate 100 MG CAP PO SCH (09:20)
[2024-03-25] MEDS ORDERED: Tuberculin PPD 0.1 ML SYRINGE (10 TEST VIAL) I-DERMAL SCH (13:30)
[2024-03-25] MEDS: Ondansetron PF 4 MG/2 ML Vial IVP PRN (18:04)
[2024-03-26 00:01] LABS: Actual Bicarbonate (HCO3a) 16.8 mEq/L (22-28); Base Excess (BEa) -5.1 mEq/L (-2.0 to +3.0); Calcium, Ionized (arterial) 1.05 mmol/L (1.12-1.30); Carboxyhemoglobin (COHb) 2.6 gm% (0.0-3.0); Hematocrit-ABG 28 % (42.0-52.0); Hemoglobin (Hb) 9.5 g/dL (14.0-18.0); Potassium - ABG Lab 4.72 mmol/L (3.70-5.30); pH, Arterial 7.496 (7.35-7.45)
[2024-03-26 00:03] LABS: Puncture Site RR
[2024-03-26 00:04] LABS: ALV-art Gradient 278.425 mmHg (0-20)
[2024-03-26] MEDS: guaiFENesin/Codeine 200 mg/20 mg 10 ml Cup PO PRN (00:28)
[2024-03-26] MEDS: ALPRAZolam 0.5 MG TAB PO SCH (03:11)
[2024-03-26] MEDS: Furosemide 20 MG (2 mL) VIAL SLOW IVP SCH (03:29)
[2024-03-26] MEDS: Morphine 2 MG/ML VIAL SLOW IVP PRN (16:03)
[2024-03-27 05:03] VITALS: BMI 25.5
[2024-03-27 07:54] VITALS: BP 125/75; TEMP 98.7
[2024-03-27] MEDS: Ondansetron ODT 4 MG TAB PO PRN (08:27)
[2024-03-27] MEDS ORDERED: Lorazepam 2 MG/ML VIAL SLOW IVP PRN ×2 (10:19)
[2024-03-27] MEDS ORDERED: Glycopyrrolate 0.2 MG/ML 5 ML SYRINGE SLOW IVP PRN (10:19)
[2024-03-27] MEDS ORDERED: Glycopyrrolate 0.4 MG/ 2 ML VIAL SLOW IVP PRN (10:36)
[2024-03-27] MEDS: Morphine 4 MG/ML VIAL SLOW IVP PRN (11:22)
[2024-03-28] MEDS ORDERED: READ PPD TEST SITE PO SCH (09:00)
[2024-03-29 13:19] LABS: CO2 Tension 22.3 mmHg (35.0-45.0); O2 Tension (PaO2), arterial 50.2 mmHg (> 60.0)
== END 2024-03-27 14:42 | disposition hospice, inpatient (51) | DRG 545 ==
LOC: ERS 15:07 → 2NO 19:45 → T4-A 03-25 14:15
PROVIDERS: ADMIT Family Medicine; ATTEND Student in an Organized Health Care Education/Training Program
PROC: 4A043R1 Measurement of Venous Saturation, Peripheral, Percutaneous Approach (ICD-10-PCS; principal; 2024-03-25)
DX: E85.4 Organ-limited amyloidosis (principal); I21.4 Non-ST elevation (NSTEMI) myocardial infarction; I50.33 Acute on chronic diastolic (congestive) heart failure; J96.01 Acute respiratory failure with hypoxia; I13.0 Hypertensive heart and chronic kidney disease with heart failure and stage 1 through stage 4 chronic kidney disease, or unspecified chronic kidney disease; E87.1 Hypo-osmolality and hyponatremia; I43 Cardiomyopathy in diseases classified elsewhere; N18.30 Chronic kidney disease, stage 3 unspecified; I48.0 Paroxysmal atrial fibrillation; D64.9 Anemia, unspecified; R53.81 Other malaise; Z51.5 Encounter for palliative care; Z66 Do not resuscitate; N40.0 Benign prostatic hyperplasia without lower urinary tract symptoms; E78.00 Pure hypercholesterolemia, unspecified; Z96.642 Presence of left artificial hip joint; Z96.653 Presence of artificial knee joint, bilateral; E86.0 Dehydration; I25.10 Atherosclerotic heart disease of native coronary artery without angina pectoris; F32.A Depression, unspecified; K59.00 Constipation, unspecified; I35.0 Nonrheumatic aortic (valve) stenosis; Z79.899 Other long term (current) drug therapy; Z95.1 Presence of aortocoronary bypass graft; Z95.0 Presence of cardiac pacemaker; Z88.1 Allergy status to other antibiotic agents
CPT/HCPCS: 36415; 71045; 80053; 81001; 82805; 83735; 83880; 84436; 84443; 84484; 85025; 85610; 85730; 93005; 94640; 99285; J1940; J2272; J2405; J7042; J7611; Q0162

== ENCOUNTER 2024-03-27 14:47 | Inpatient (IN) | payer OTHER ==
[2024-03-27] MEDS ORDERED: Ondansetron PF 4 MG/2 ML Vial IVP PRN (15:00)
[2024-03-27] MEDS ORDERED: Lorazepam 2 MG/ML VIAL SLOW IVP PRN (15:02)
[2024-03-27] MEDS ORDERED: Scopolamine 1 mg/72 hour Patch TOP PRN (15:02)
[2024-03-27] MEDS ORDERED: Bisacodyl 10 MG SUPP PR PRN (15:03)
[2024-03-27 15:44] VITALS: BMI 25.7
[2024-03-27] MEDS: Morphine 4 MG/ML VIAL SLOW IVP SCH (17:54)
[2024-03-29 07:14] VITALS: BP 124/73; TEMP 98.3
[2024-03-29] MEDS: Morphine 2 MG/ML VIAL SLOW IVP PRN (10:19)
[2024-03-29] MEDS: Lorazepam 2 MG/ML VIAL SLOW IVP PRN (12:38)
[2024-03-29] MEDS: Morphine 4 MG/ML VIAL SLOW IVP PRN (12:38)
[2024-03-29] MEDS ORDERED: Lorazepam 2 MG/ML VIAL SLOW IVP SCH (14:00)
[2024-03-29] MEDS ORDERED: Morphine 2 MG/ML VIAL SLOW IVP SCH (14:00)
== END 2024-03-29 13:13 | disposition expired | DRG 951 ==
LOC: T4-A 14:47
PROVIDERS: ADMIT Family Medicine; ATTEND Family Medicine
DX: Z51.5 Encounter for palliative care (principal); I50.33 Acute on chronic diastolic (congestive) heart failure; I21.4 Non-ST elevation (NSTEMI) myocardial infarction; E85.9 Amyloidosis, unspecified; I13.0 Hypertensive heart and chronic kidney disease with heart failure and stage 1 through stage 4 chronic kidney disease, or unspecified chronic kidney disease; N18.30 Chronic kidney disease, stage 3 unspecified
CPT/HCPCS: J2060; J2272